=== PATIENT | female | born 1945 | race African-American/Black ===

== ENCOUNTER 2016-11-23 15:06 | Inpatient (IN) | payer OTHER ==
[2016-11-23 15:24] VITALS: BMI 26.9
--- NOTE | 2016-11-23 15:28 | PDOC ---
History of Present Illness - General History Source: Patient, Family, Detention Records Exam Limitations: Dementia - History of Present Illness Initial Comments: 11/23/16 15:55 The patient is a 71 year old female, BIBA from [facility] with a significant past medical history of HTN, DM, dementia, hyperlipidemia, and hypercholesterolemia, who presents to the emergency department for free air under the diaphragm that was seen on outpatient xray. The patients family reports the patient having intermittent abdominal pain, for the psat few weeks. The patients son reports the patient feeling her normal baseline this Monday, and reports 2 days later, this Monday, the patient was slumped over and had multiple episodes of vomiting, bringing up brownish liquid with c/os of worsening abdominal pain. The patient arrives to the ER with distended abdomen. The patient while at her NH had a chest x-ray showing free air under diaphragm and lobe atelectasis. The patient also has had blood work done on showing WBC of 20 and a absolute neutrophil count of 18. Son denies recent fevers, chills, headache or dizziness. Son denies recent nausea, vomit, diarrhea or constipation. Patient is DNR/DNI. History limited and rovided via tx records and from [facility] due to her dementia. Allergies: NKA Past surgical history: Cholecystectomy Social history: Nonsmoker. Denies EtOH use and recreational drug use. <Antony Kurtz - Last Filed: 11/23/16 15:55> <Yordy Morales - Last Filed: 11/23/16 17:53> - General History Source: Patient <Asaf Cao - Last Filed: 11/23/16 18:15> - General Chief Complaint: Pain, Acute Stated Complaint: ABNORMAL LABS Time Seen by Provider: 11/23/16 15:28 Past History <Antony Kurtz - Last Filed: 11/23/16 15:55> <Yordy Morales - Last Filed: 11/23/16 17:53> - Past Medical History Anemia: No Asthma: No Cancer: No Cardiac Disorders: No CVA: No COPD: No CHF: No Dementia: Yes Diabetes: No Dialysis: No GI Disorders: Yes (acid reflux) Disorders: No HTN: Yes Hypercholesterolemia: Yes HIV: No Kidney Stones: No Liver Disease: No Suicide Attempt (Hx): No Seizures: No Thyroid Disease: No - Surgical History Abdominal Surgery: No Appendectomy: No Cardiac Surgery: No Cholecystectomy: Yes Lung Surgery: No Neurologic Surgery: No Orthopedic Surgery: No - Immunization History Td Vaccination: Yes TDAP Vaccination: Yes Immunization Up to Date: Yes (01/05) - Psycho/Social/Smoking Cessation Hx Anxiety: No Suicidal Ideation: No Smoking Status: No Smoking History: Never smoked Years of Tobacco Use: 0 Have you smoked in the past 12 months: No Number of Cigarettes Smoked Daily: 0 Cigars Per Day: 0 Information on smoking cessation initiated: No Hx Alcohol Use: No Drug/Substance Use Hx: No Substance Use Type: None Hx Substance Use Treatment: No <Asaf Cao - Last Filed: 11/23/16 18:15> - Past Medical History Allergies/Adverse Reactions: Allergies Allergy/AdvReac Type Severity Reaction Status Date / Time No Known Allergies Allergy Verified 12/19/12 14:22 Home Medications: Ambulatory Orders Amlodipine Besylate [Norvasc] 5 mg PO DAILY 01/12/12 Famotidine [Pepcid] 20 mg PO BID #20 tablet 04/07/12 Pantoprazole Sodium [Protonix] 40 mg PO ONCE #20 tablet.ec 12/19/12 Amlodipine Besylate [Norvasc -] 5 mg PO DAILY #0 tablet 12/27/12 Aripiprazole [Abilify -] 5 mg PO DAILY #0 tablet 12/27/12 Citalopram Hydrobromide [Celexa -] 20 mg PO DAILY #0 tablet 12/27/12 Docusate Sodium [Colace -] 100 mg PO BID #20 capsule 12/27/12 Donepezil HCl [Aricept -] 5 mg PO DAILY #0 tablet 12/27/12 Mag Hydrox/Al Hydrox/Simeth [Mylanta Oral Suspension -] 30 ml PO Q6H PRN #0 cup 12/27/12 Metoclopramide HCl [Reglan -] 5 mg PO TID #0 tablet 12/27/12 Pantoprazole Sodium [Protonix -] 40 mg PO DAILY #0 tablet.ec 12/27/12 Abd/GI Specific PMHX - Complaint Specific PMHX Colitis: No Diverticulitis: No Gall Bladder Disease: Yes GERD: Yes Hepatitis: No Irritable Bowel Synd (IBS): No Pancreatitis: No GI Ulcer Disease: No <Asaf Cao - Last Filed: 11/23/16 18:15> Review of Systems - Review of Systems Able to Perform ROS?: No (Dementia ) <Antony Kurtz - Last Filed: 11/23/16 15:55> *Physical Exam - Vital Signs Last Vital Signs Temp Pulse Resp BP Pulse Ox 99.7 F H 127 H 20 138/79 96 11/23/16 15:21 11/23/16 15:21 11/23/16 15:21 11/23/16 15:21 11/23/16 15:21 - Physical Exam Comments: 11/23/16 15:55 GENERAL: The patient is awake, but with her eyes closed. Nontoxic - in no acute distress. HEAD: Normocephalic, atraumatic. EYES: extraocular movements intact, sclera anicteric, conjunctiva clear. ENT: Normal voice, Moist mucous membranes. NECK: Normal range of motion, supple LUNGS: Breath sounds equal, clear to auscultation bilaterally. No wheezes, no rhonchi, no rales. HEART: tachycardic ABDOMEN: slightly distended, diffusely tender to palpation EXTREMITIES: Normal range of motion, no edema. NEUROLOGICAL: No facial assymetry, limited exam due to dementia SKIN: Warm, Dry, normal turgor, <Antoyn Kurtz - Last Filed: 11/23/16 15:55> - Vital Signs Last Vital Signs Temp Pulse Resp BP Pulse Ox 100.7 F H 127 H 24 130/83 97 11/23/16 17:27 11/23/16 17:27 11/23/16 17:27 11/23/16 17:27 11/23/16 17:27 <Yordy Morales - Last Filed: 11/23/16 17:53> - Vital Signs Last Vital Signs Temp Pulse Resp BP Pulse Ox 99.7 F H 127 H 20 138/79 96 11/23/16 15:21 11/23/16 15:21 11/23/16 15:21 11/23/16 15:21 11/23/16 15:21 <Asaf Cao - Last Filed: 11/23/16 18:15> Heart Score/ECG Review - ECG Impressions Comment:: 11/23/16 16:06 Twelve-lead EKG was performed and reviewed by me. There is normal sinus rhythm with rate of [address] changes suggtestive of acute ischemia <Asaf Cao - Last Filed: 11/23/16 18:15> ED Treatment Course - LABORATORY CBC & Chemistry Diagram: 11/23/16 16:10 11/23/16 16:10 - ADDITIONAL ORDERS Additional order review: Laboratory Results 11/23/16 11/23/16 16:10 16:10 INR 1.26 H Lactic Acid 2.8 H* 11/23/16 16:10 RBC 5.32 H MCV 69.7 L MCHC 31.7 L RDW 15.2 MPV 7.9 Neutrophils % 81.3 D Lymphocytes % 11.1 D Monocytes % 6.7 Eosinophils % 0.4 Basophils % 0.5 - Medications Given in the ED: ED Medications Discontinued Medications Generic Name Dose Route Start Last Admin Trade Name Freq PRN Reason Stop Dose Admin Sodium Chloride 1,000 mls @ 1,000 mls/hr 11/23/16 15:30 11/23/16 16:31 Normal Saline - IV 11/23/16 16:29 1,000 mls/hr .Q1H ONE Administration <Yordy Morales - Last Filed: 11/23/16 17:53> - LABORATORY CBC & Chemistry Diagram: 11/23/16 16:10 11/23/16 16:10 <Asaf Cao - Last Filed: 11/23/16 18:15> Medical Decision Making - Medical Decision Making 11/23/16 16:07 pt with free air under the diaphragm on our cxr will consult surger pending surgery call back 11/23/16 16:15 case rafy fatima will come see pt 11/23/16 17:[address] fatima will bring to OR will admit to hospitalist service will give pt abx CRITICAL CARE DOCUMENTATION: I spent ~35 minutes of Critical Care time, excluding separately billable procedures, involving high complexity decision making to assess, manipulate and support vital system function(s) to treat single or multiple vital organ system failure and/or to prevent further life threatening deterioration of the patient' s condition. 11/23/16 18:08 case rafy Smiley - hospitalist service agree with admission to ICU case rafy lawson agree with ICU admission Case discussed in detail with admitting physician including history, physical exam and ancillary studies. Admitting physician has assumed care for the patient, will follow all pending diagnostics and will complete the evaluation and treatment. <Asaf Cao - Last Filed: 11/23/16 18:15> *DC/Admit/Observation/Transfer - Attestations Scribe Attestion: 11/23/16 15:52 Documentation prepared by Antony Kurtz, acting as medical engineer for Asaf Cao MD. <Antony Kurtz - Last Filed: 11/23/16 15:55> - Discharge Dispostion Admit: Yes <Yordy Morales - Last Filed: 11/23/16 17:53> - Discharge Dispostion Admit: Yes <Asaf Cao - Last Filed: 11/23/16 18:15> Diagnosis at time of Disposition: Intestinal perforation - Discharge Dispostion Condition at time of disposition: Critical - Referrals Referrals: Fabio Currie [Primary Care Provider] -
[2016-11-23] MEDS ORDERED: SODIUM CHLORIDE 1,000 ML IV ONE (15:30)
[2016-11-23 16:28] LABS: BASOPHIL 0.5 % (0-2.0); EOSINOPHIL 0.4 % (0-4.5); MCH 22.1 pg (25.7-33.7); MCHC 31.7 g/dl (32.0-36.0); MEAN CELL VOLUME 69.7 fl (80-96); MEAN PLT VOLUME 7.9 fl (7.5-11.1); NEUTROPHILS 81.3 % (42.8-82.8); PLATELET COUNT 349 K/MM3 (134-434); RDW 15.2 % (11.6-15.6); WHITE BLOOD COUNT 14.4 K/mm3 (4.0-10.0)
[2016-11-23 16:41] LABS: INR 1.26 (0.82-1.09); PROTHROMBIN TIME (PATIENT) 13.9 SEC (9.98-11.88)
--- NOTE | 2016-11-23 17:03 | CONSULT ---
- Consultation REQUESTING PROVIDER: Kiley RASCON CONSULT REQUEST: We have been asked to surgically evaluate this patient for ( specify). PCP: HISTORY OF PRESENT ILLNESS: [place] who is a prison resident who was sent to the [facility] ER after ? c/o's ? of abdominal pain over the last 2-3 days; she cannot provide an adequate h/o b/o dementia; a w/u was done in the [place] with dx. imaging which revealed pneumoperitoneum; she was sent here and CXR here confirms pneumoperitoneum. She has a DNR/DNI PMHx: reveiwed ; HTN;hyperlipidemia; dementia PSHx: lap pool Home Medications Medication Instructions Recorded Amlodipine Besylate [Norvasc] 5 mg PO DAILY 01/12/12 Famotidine [Pepcid] 20 mg PO BID #20 tablet 04/07/12 Pantoprazole Sodium [Protonix] 40 mg PO ONCE #20 tablet.ec 12/19/12 Amlodipine Besylate [Norvasc -] 5 mg PO DAILY #0 tablet 12/27/12 Aripiprazole [Abilify -] 5 mg PO DAILY #0 tablet 12/27/12 Citalopram Hydrobromide [Celexa -] 20 mg PO DAILY #0 tablet 12/27/12 Docusate Sodium [Colace -] 100 mg PO BID #20 capsule 12/27/12 Donepezil HCl [Aricept -] 5 mg PO DAILY #0 tablet 12/27/12 Mag Hydrox/Al Hydrox/Simeth 30 ml PO Q6H PRN #0 cup 12/27/12 [Mylanta Oral Suspension -] Metoclopramide HCl [Reglan -] 5 mg PO TID #0 tablet 12/27/12 Pantoprazole Sodium [Protonix -] 40 mg PO DAILY #0 tablet.ec 12/27/12 Allergies Allergy/AdvReac Type Severity Reaction Status Date / Time No Known Allergies Allergy Verified 12/19/12 14:22 REVIEW OF SYSTEMS: reviewed from [place] xfer papers PHYSICAL EXAM: GENERAL: Lethargic, not oriented, in slightdistress. HEAD: Normal with no signs of trauma. ABDOMEN: Soft, dissuse 4 quadrant tenderness, distended and tympanitic, absebt bowel sounds, voluntary guarding, positive rebound, no masses. No organomegaly. No hernias UPPER EXTREMITIES: 2+ pulses, warm, well-perfused. No cyanosis. Cap refill <2 seconds. No peripheral edema. LOWER EXTREMITIES: 2+ pulses, warm, well-perfused. No calf tenderness. No peripheral edema. NEUROLOGICAL:Non verbal, gait not observed. PSYCH: Unooperative. No eye contact. Inappropriate mood and affect. SKIN: Warm, dry, normal turgor, no rashes or lesions noted. Vital Signs Temperature 99.7 F H 11/23/16 15:21 Pulse Rate 127 H 11/23/16 15:21 Respiratory Rate 20 11/23/16 15:21 Blood Pressure 138/79 11/23/16 15:21 O2 Sat by Pulse Oximetry (%) 96 11/23/16 15:21 Lab Results WBC 14.4 K/mm3 (4.0-10.0) H D 11/23/16 16:10 RBC 5.32 M/mm3 (3.60-5.2) H 11/23/16 16:10 Hgb 11.8 GM/dL (10.7-15.3) 11/23/16 16:10 Hct 37.1 % (32.4-45.2) 11/23/16 16:10 MCV 69.7 fl (80-96) L 11/23/16 16:10 MCHC 31.7 g/dl (32.0-36.0) L 11/23/16 16:10 RDW 15.2 % (11.6-15.6) 11/23/16 16:10 Plt Count 349 K/MM3 (134-434) D 11/23/16 16:10 INR 1.26 (0.82-1.09) H 11/23/16 16:10 Dx imaging reviewed IMP: pneumoperitoneum; acute surgical abdomen; perforated DU vs. perforated diverticulitis. PLAN: D/w family at length about surgery; r/b/t/a's; possibley of inability to extubate post op and possibility of prolonged intubation; all possible complications of surgery discussed including but not stroke/MS/wound infection/ PE?DVT and ; they are deciding what they would like to do. Harvinder Suazo MD FACS Visit type - Case Type Case Type: ED Admission - Emergency Emergency Visit: Yes Care time: The patient presented to the Emergency Department on the above date and was hospitalized for further evaluation of their emergent condition. - New patient This patient is new to me today: No - Critical Care Critical Care patient: No
[2016-11-23] MEDS ORDERED: LEVOFLOXACIN 750 MG IVPB 150 ML IVPB ONE ×2 (17:12→17:34)
[2016-11-23] MEDS ORDERED: METRONIDAZOLE 500 MG PREMIXED 100 ML IVPB ONE ×2 (17:12→17:35)
[2016-11-23 18:02] LABS: ALBUMIN 2.6 g/dl (3.4-5.0); ANION GAP 9 (8-16); BILIRUBIN,TOTAL 0.7 mg/dL (0.2-1.0); CO2 28 mmol/L (21-32); CREATININE 0.6 mg/dL (0.55-1.02); GLUCOSE,RANDOM 144 mg/dL (74-106); SGOT/AST 18 U/L (15-37); SGPT/ALT 29 U/L (12-78)
[2016-11-23 18:03] LABS: ALK PHOS 84 U/L (45-117); TOT PROT 6.4 g/dl (6.4-8.2)
--- NOTE | 2016-11-23 18:36 | HP ---
CHIEF COMPLAINT: abdominal pain PCP: Fabio Currie HISTORY OF PRESENT ILLNESS: 71 yo F from [facility] with significant PMHx of HTN, DM, dementia, hyperlipidemia, and hypercholesterolemia, who presents to the ER for free air under the diaphragm that was seen on outpatient xray. Family functioning as historian as she is nonverbal . Patient was in her normal state of health until Monday when family noticed she was complaining of abdominal pain by grimacing and holding her belly . They report that 2 days later, this Monday, the patient was slumped over and had multiple episodes of vomiting, bringing up brownish liquid with c/os of worsening abdominal pain. The patient also has had blood work done on 11/21/16 showing WBC of 20 and a absolute neutrophil count of 18. Son denies recent fevers, chills, headache or dizziness. Patient is DNR/DNI but family would like to her to have surgery and forego palliative care at this time. ER course was notable for: (1)abdominal XRAY shows free air under diaphragm (2)EKG shows NSR rate 122 no maryam (3)WBC 14.4 , Lactic acid 2.8- given Metronidazole and Levaquin x1 Recent Travel: Denies PAST MEDICAL HISTORY: HTN, DM, dementia, hyperlipidemia, and hypercholesterolemia PAST SURGICAL HISTORY: [facility]Y Social History: Smoking:never smoked Alcohol:denies Drugs: denies Family History: Allergies No Known Allergies Allergy (Verified 12/19/12 14:22) HOME MEDICATIONS: Home Medications Medication Instructions Recorded Amlodipine Besylate [Norvasc] 5 mg PO DAILY 01/12/12 Famotidine [Pepcid] 20 mg PO BID #20 tablet 04/07/12 Pantoprazole Sodium [Protonix] 40 mg PO ONCE #20 tablet.ec 12/19/12 Amlodipine Besylate [Norvasc -] 5 mg PO DAILY #0 tablet 12/27/12 Aripiprazole [Abilify -] 5 mg PO DAILY #0 tablet 12/27/12 Citalopram Hydrobromide [Celexa -] 20 mg PO DAILY #0 tablet 12/27/12 Docusate Sodium [Colace -] 100 mg PO BID #20 capsule 12/27/12 Donepezil HCl [Aricept -] 5 mg PO DAILY #0 tablet 12/27/12 Mag Hydrox/Al Hydrox/Simeth 30 ml PO Q6H PRN #0 cup 12/27/12 [Mylanta Oral Suspension -] Metoclopramide HCl [Reglan -] 5 mg PO TID #0 tablet 12/27/12 Pantoprazole Sodium [Protonix -] 40 mg PO DAILY #0 tablet.ec 12/27/12 REVIEW OF SYSTEMS Unable to obtain secondary to patients mental status. PHYSICAL EXAMINATION Vital Signs - 24 hr 11/23/16 11/23/16 11/23/16 15:21 16:00 17:27 Temperature 99.7 F H 100.7 F H Pulse Rate 127 H 122 H Pulse Rate [ 127 H Apical] Respiratory 20 24 Rate Blood Pressure 138/79 Blood Pressure 130/83 [Left] O2 Sat by Pulse 96 98 97 Oximetry (%) GENERAL: Awake, and alert , NAD HEAD: NC/AT EYES: PERRLA, EOMI, sclera anicteric, conjunctiva clear. No lid lag. EARS, NOSE, THROAT: Ears normal, nares patent, oropharynx clear without exudates. Moist mucous membranes. NECK: supple, No jvd LUNGS: CTAB, No wheezes, and no crackles. No accessory muscle use. HEART: Tachycardic, normal S1 and S2 without murmur, rub or gallop. ABDOMEN: Soft, diffuse tenderness, moderate distention,normoactive bowel sounds , voluntary guarding, no rebound, no masses. MUSCULOSKELETAL: Normal range of motion at all joints. No bony deformities or tenderness. No CVA tenderness. UPPER EXTREMITIES: 2+ pulses, warm, well-perfused. No cyanosis. No clubbing. No peripheral edema. LOWER EXTREMITIES: 2+ pulses, warm, well-perfused. No calf tenderness. No peripheral edema. NEUROLOGICAL: gait not observed. Moves all 4 ext. PSYCHIATRIC: non verbal SKIN: Warm, dry, normal turgor, no rashes or lesions noted, normal capillary refill. Laboratory Results - last 24 hr 11/23/16 11/23/16 11/23/16 16:10 16:10 16:10 WBC 14.4 H D RBC 5.32 H Hgb 11.8 Hct 37.1 MCV 69.7 L MCH 22.1 L MCHC 31.7 L RDW 15.2 Plt Count 349 D MPV 7.9 Neutrophils % 81.3 D Lymphocytes % 11.1 D Monocytes % 6.7 Eosinophils % 0.4 Basophils % 0.5 INR 1.26 H Sodium 140 Potassium 3.8 Chloride 103 Carbon Dioxide 28 Anion Gap 9 BUN 12 D Creatinine 0.6 D Creat Clearance w eGFR > 60 Random Glucose 144 H D Lactic Acid Calcium 9.0 Total Bilirubin 0.7 D AST 18 ALT 29 Alkaline Phosphatase 84 Total Protein 6.4 Albumin 2.6 L D 11/23/16 16:10 WBC RBC Hgb Hct MCV MCH MCHC RDW Plt Count MPV Neutrophils % Lymphocytes % Monocytes % Eosinophils % Basophils % INR Sodium Potassium Chloride Carbon Dioxide Anion Gap BUN Creatinine Creat Clearance w eGFR Random Glucose Lactic Acid 2.8 H* Calcium Total Bilirubin AST ALT Alkaline Phosphatase Total Protein Albumin ASSESSMENT/PLAN: 71 yo F from [facility] with significant PMHx of HTN, DM, dementia, and hypercholesterolemia, admitted for intestinal perforation and emergent surgery. Problem List - Problem (1) Intestinal perforation Assessment/Plan: * Free air under diaphragm and evaluated by Dr. Suazo * She will be taken back to OR this evening * Admission to ICU * Given Levaquin and Metronidazole in ED x1 * PPI * Zofran PRN (2) Diabetes type 2, controlled Assessment/Plan: * NPO for now * BGM Q4h * diabetic diet when she can tolerated PO * No home meds. (3) Hyperlipemia Assessment/Plan: * Not on statins. (4) Dementia Assessment/Plan: * meds held for now as patient is NPO * Can restart when medically stable. (5) DVT prophylaxis Assessment/Plan: * SCD's for now * can initiate Heparin subq once HD stable after surgery. Visit type - Emergency Visit Emergency Visit: Yes ED Registration Date: 11/23/16 Care time: The patient presented to the Emergency Department on the above date and was hospitalized for further evaluation of their emergent condition. - New Patient This patient is new to me today: Yes Date on this admission: 11/24/16 - Critical Care Critical Care patient: Yes Total Critical Care Time (in minutes): 35 Critical Care Statement: The care of this patient involved high complexity decision making to prevent further life threatening deterioration of the patient 's condition and/or to evaluate & treat vital organ system(s) failure or risk of failure.
[2016-11-23 18:41] LABS: PLATELET ESTIMATE ADEQUATE (NORMAL)
[2016-11-23 18:42] LABS: ANISOCYTOSIS 1+; HYPOCHROMIA 1+; MICROCYTOSIS 1+; OVALOCYTE 2+; POIKILOCYTOSIS 1+; POLYCHROMASIA 1+
[2016-11-23] MEDS ORDERED: ETOMIDATE 20 MG/10 ML AMPUL IVPUSH ONE (21:36)
[2016-11-23] MEDS ORDERED: ROCURONIUM BROMIDE 50 MG/5 ML VIAL ONE ×2 (21:37→23:20)
[2016-11-23] MEDS ORDERED: CHLORHEXIDINE GLUCONATE 4% CLEANSER FOR DECOLONIZATION TP SCH (22:00)
[2016-11-23] MEDS ORDERED: MUPIROCIN 2% TOPICAL OINTMENT FOR DECOLONIZATION NS SCH (22:00)
[2016-11-24] MEDS ORDERED: ALBUMIN HUMAN 5% 500 ML IV SOLUTION IVPB ONE
[2016-11-24] MEDS ORDERED: HYDROmorphone HCL CARPU-JECT 1 MG/1 ML DISP.SYRIN IVPUSH PRN (00:26)
[2016-11-24] MEDS ORDERED: ALBUMIN HUMAN 5% 250 ML IV SOLUTION IVPB ONE ×2 (00:36→01:10)
[2016-11-24] MEDS ORDERED: ONDANSETRON 4 MG/2 ML VIAL IVPB PRN (00:37)
[2016-11-24] MEDS ORDERED: LACTATED RINGERS SOLUTION 1,000 ML IV SCH (00:45)
[2016-11-24] MEDS ORDERED: ACETAMINOPHEN 1000 MG/100 ML VIAL (NON FORMULARY) IVPB PRN (00:46)
--- NOTE | 2016-11-24 00:51 | OP ---
Operative Note - Note: Operative Date: 11/24/16 Pre-Operative Diagnosis: acute abdomen, pneumoperitoneum Operation: exploratory lapartomy/hartmans procedure Findings: perforated sigmoid colon Surgeon: Harvinder Suazo Senior Management Consultant: Charlotte Roger Anesthesiologist/CHILD NURSE: Pasquale Alexander Anesthesia: General Specimens Removed: sigmoid colon Estimated Blood Loss (mls): 200 Drains, Volume Out (mls): 100 (childress) Fluid Volume Replaced (mls): 3,300 (2500-crystaloid, 500 albumin) Operative Report Dictated: Yes
[2016-11-24] MEDS ORDERED: PROPOFOL 100 ML IVPB SCH (01:15)
[2016-11-24] MEDS ORDERED: FENTANYL INJECTION 500 MCG in DEXTROSE 5%-WATER - 90 ML IVPB SCH (01:15)
--- NOTE | 2016-11-24 02:10 | PN ---
Teaching Attending Note Name of Resident: Cr Smiley ATTENDING PHYSICIAN STATEMENT I saw and evaluated the patient. I reviewed the resident's note and discussed the case with the resident. I agree with the resident's findings and plan as documented. SUBJECTIVE:71-year-old female referred from [facility] for concern of abdominal pain, multiple episodes of vomiting brownish liquid for 2 days. OBJECTIVE: Gen.: Well-nourished . awake and in mild distress on palpation of abdomen. HEENT: Normocephalic, atraumatic, pupils equal and reactive to light and accommodation, EOMI, no exophthalmos, normal nasal and oral pharyngeal mucosa.edentulous. Neck:Trachea midline, no thyroid nodules appreciated or thyromegaly. Cardiovascular: Regular rate, and rhythm, S1, S2, no murmur, no gallop, no rub. Respiration: Equal bilateral breath sounds ,no wheezing, no rhonchi, and no rales. Abdomen: Soft, RLQ and RUQ tender, bowel sounds present, no hepatosplenomegaly. Musculoskeletal: No peripheral edema, equal bilateral pulses, normal ROM. Neuro:nonverbal. Skin: warm to touch, no rashs, no lesions CBCD WBC 14.4 K/mm3 (4.0-10.0) H D 11/23/16 16:10 RBC 5.32 M/mm3 (3.60-5.2) H 11/23/16 16:10 Hgb 11.8 GM/dL (10.7-15.3) 11/23/16 16:10 Hct 37.1 % (32.4-45.2) 11/23/16 16:10 MCV 69.7 fl (80-96) L 11/23/16 16:10 MCHC 31.7 g/dl (32.0-36.0) L 11/23/16 16:10 RDW 15.2 % (11.6-15.6) 11/23/16 16:10 Plt Count 349 K/MM3 (134-434) D 11/23/16 16:10 MPV 7.9 fl (7.5-11.1) 11/23/16 16:10 CMP Sodium 140 mmol/L (136-145) 11/23/16 16:10 Potassium 3.8 mmol/L (3.5-5.1) 11/23/16 16:10 Chloride 103 mmol/L (98-107) 11/23/16 16:10 Carbon Dioxide 28 mmol/L (21-32) 11/23/16 16:10 Anion Gap 9 (8-16) 11/23/16 16:10 BUN 12 mg/dL (7-18) D 11/23/16 16:10 Creatinine 0.6 mg/dL (0.55-1.02) D 11/23/16 16:10 Creat Clearance w eGFR > 60 (>60) 11/23/16 16:10 Random Glucose 144 mg/dL (74-106) H D 11/23/16 16:10 Calcium 9.0 mg/dL (8.5-10.1) 11/23/16 16:10 Total Bilirubin 0.7 mg/dL (0.2-1.0) D 11/23/16 16:10 AST 18 U/L (15-37) 11/23/16 16:10 ALT 29 U/L (12-78) 11/23/16 16:10 Alkaline Phosphatase 84 U/L (45-117) 11/23/16 16:10 Total Protein 6.4 g/dl (6.4-8.2) 11/23/16 16:10 Albumin 2.6 g/dl (3.4-5.0) L D 11/23/16 16:10 ASSESSMENT AND PLAN: abdominal pain with x-ray showing pneumoperitoneum, admit for emergent surgery for bowel perforation .Nothing by mouth, IV fluids, PPI daily, Zofran when necessary,pain medication when necessary, follow surgical consult and monitor patient. DNR/DNI, with DNI revoked for surgical intervention. DVT prophylaxis once hemostasis achieved post surgery. Advanced directives discussed. Problem List - Problems (1) Dementia Code(s): F03.90 - UNSPECIFIED DEMENTIA WITHOUT BEHAVIORAL DISTURBANCE Qualifiers: Dementia type: unspecified type Dementia behavioral disturbance: without behavioral disturbance Qualified Code(s): F03.90 - Unspecified dementia without behavioral disturbance (2) Diabetes type 2, controlled Code(s): E11.9 - TYPE 2 DIABETES MELLITUS WITHOUT COMPLICATIONS Qualifiers: Diabetes mellitus complication status: with unspecified complications Diabetes mellitus skilled nursing insulin use: unspecified skilled nursing insulin use status Qualified Code(s): E11.8 - Type 2 diabetes mellitus with unspecified complications; Z79.4 - director long term care (current) use of insulin (3) Hyperlipemia Code(s): E78.5 - HYPERLIPIDEMIA, UNSPECIFIED Qualifiers: Hyperlipidemia type: unspecified Qualified Code(s): E78.5 - Hyperlipidemia, unspecified (4) Intestinal perforation Code(s): K63.1 - PERFORATION OF INTESTINE (NONTRAUMATIC) Critical Care Total Critical Care Time (in minutes): 65 Critical Care Statement: The care of this patient involved high complexity decision making to prevent further life threatening deterioration of the patient 's condition and/or to evaluate & treat vital organ system(s) failure or risk of failure.
[2016-11-24] MEDS ORDERED: SODIUM CHLORIDE 500 ML IV STA (02:11)
[2016-11-24 02:31] LABS: BASOPHIL 0.3 % (0-2.0); EOSINOPHIL 0.6 % (0-4.5); MCH 22.2 pg (25.7-33.7); MCHC 31.6 g/dl (32.0-36.0); MEAN CELL VOLUME 70.3 fl (80-96); MEAN PLT VOLUME 8.4 fl (7.5-11.1); NEUTROPHILS 75.3 % (42.8-82.8); PLATELET COUNT 110 K/MM3 (134-434); RDW 15.2 % (11.6-15.6); WHITE BLOOD COUNT 8.2 K/mm3 (4.0-10.0)
[2016-11-24 03:13] LABS: ANION GAP 10 (8-16); CALCIUM 7.1 mg/dL (8.5-10.1); CO2 22 mmol/L (21-32); CREATININE 0.6 mg/dL (0.55-1.02); GLUCOSE,RANDOM 188 mg/dL (74-106)
[2016-11-24 03:39] LABS: ALLENS TEST POSITIVE; ART PUNCT SITE RIGHT RADIAL; ARTERIAL BLD GAS O2 SATURATION 98.5 % (90-98.9); ARTERIAL BLOOD GAS BASE EXCESS -1.4 meq/l (-2-2); ARTERIAL BLOOD GAS HCO3 19.4 meq/L (22-26); LPM/O2% 80%; PT. ON O2? YES
[2016-11-24 03:40] LABS: MECH. VENT. YES; TYPE OF O2 MECH VENT; VENT RATE 10; VT/PRESS 500
[2016-11-24 03:41] LABS: ARTERIAL BLOOD GAS pH 7.55 (7.35-7.45)
[2016-11-24] MEDS: METRONIDAZOLE 500 MG PREMIXED 100 ML IVPB SCH ×3 (03:44→17:03)
[2016-11-24 05:21] LABS: BASOPHIL 0.2 % (0-2.0); EOSINOPHIL 0.1 % (0-4.5); MCH 22.1 pg (25.7-33.7); MEAN CELL VOLUME 69.3 fl (80-96); MEAN PLT VOLUME 8.1 fl (7.5-11.1); NEUTROPHILS 83.9 % (42.8-82.8); PLATELET COUNT 278 K/MM3 (134-434); RDW 15.1 % (11.6-15.6); WHITE BLOOD COUNT 12.4 K/mm3 (4.0-10.0)
--- NOTE | 2016-11-24 05:30 | CONSULT ---
Consult Consult Specialty:: Pulmonary Critical Care Reason for Consultation:: Post exploratory laparotomy - History of Present Illness Chief Complaint: Abdominal pain History of Present Illness: Pt is a 71 yo female who is a [facility] resident, with a h/o HTN, DM, dementia (non-verbal at baseline), HL who was sent to ED when she was noted to have free air on abdominal x-ray. Was taken to emergent surgery and was found to have perforated sigmoid colon. Now s/p resection and colostomy, transferred to ICU for post-op care. Pt has been feeling abdominal pain for the past two days (grimacing and holding her belly), xray done at [facility] and showed pneumoperitoneum. She was referred to ER where surgery was consulted given c/f bowel perforation. Initial labs notable for WBC 14.4, lactate 2.8. Was given fluids and dosed flagyl and levaquin. She was then taken to emergent surgery where she was found to have perforated sigmoid colon. Underwent resection and colostomy. 200cc blood loss reported during procedure. Received another dose of levaquin/flagyl. Was then transferred to ICU for post-op management. Arrived to ICU hemodynamically stable , intubated. Active Medications Acetaminophen (Ofirmev Injection -) 1,000 mg IVPB Q6H PRN PRN Reason: FEVER OR PAIN Stop: 11/24/16 18:47 Heparin Sodium (Porcine) (Heparin -) 5,000 unit SQ BID CELENA Hydromorphone HCl (Dilaudid Injection -) 1 mg IVPUSH Q4H PRN PRN Reason: PAIN Pantoprazole Sodium (Protonix 40mg Ivpb (Pre-Docked)) 100 mls @ 200 mls/hr IVPB DAILY CELENA Metronidazole (Flagyl 500mg Premixed Ivpb -) 100 mls @ 100 mls/hr IVPB Q8H-IV CELENA Last Admin: 11/24/16 03:44 Dose: 100 mls/hr Levofloxacin (Levaquin 500 Mg Premixed Ivpb -) 100 mls @ 100 mls/hr IVPB ONCE ONE Stop: 11/24/16 18:59 Lactated Ringer's (Lactated Ringers Solution) 1,000 mls @ 150 mls/hr IV ASDIR CELENA Stop: 11/24/16 23:00 Last Admin: 11/24/16 00:45 Dose: 150 mls/hr Fentanyl 500 mcg/ Dextrose 100 mls @ 20 mls/hr IVPB TITR CELENA PRN Reason: 100 MCG/HR Stop: 11/25/16 01:14 Last Admin: 11/24/16 01:15 Dose: 20 mls/hr Propofol (Diprivan -) 100 mls @ 2.273 mls/hr IVPB TITR CELENA; 5 MCG/KG/MIN PRN Reason: Protocol Last Admin: 11/24/16 00:50 Dose: 2.273 mls/hr Mupirocin (Bactroban Ointment (For Decolonization) -) 1 applic NS BID CELENA Stop: 11/29/16 09:59 Ondansetron HCl (Zofran Injection) 4 mg IVPB Q6H PRN PRN Reason: NAUSEA - 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 Cardio/Vascular: Yes: HTN, Hyperlipdemia ...: No - Alcohol/Substance Use Hx Alcohol Use: No - Smoking History Smoking history: Never smoked Have you smoked in the past 12 months: No Aproximately how many cigarettes per day: 0 Home Medications - Allergies Allergies/Adverse Reactions: Allergies Allergy/AdvReac Type Severity Reaction Status Date / Time No Known Allergies Allergy Verified 12/19/12 14:22 - Home Medications Home Medications: Ambulatory Orders Amlodipine Besylate [Norvasc] 5 mg PO DAILY 01/12/12 Famotidine [Pepcid] 20 mg PO BID #20 tablet 04/07/12 Pantoprazole Sodium [Protonix] 40 mg PO ONCE #20 tablet.ec 12/19/12 Amlodipine Besylate [Norvasc -] 5 mg PO DAILY #0 tablet 12/27/12 Aripiprazole [Abilify -] 5 mg PO DAILY #0 tablet 12/27/12 Citalopram Hydrobromide [Celexa -] 20 mg PO DAILY #0 tablet 12/27/12 Docusate Sodium [Colace -] 100 mg PO BID #20 capsule 12/27/12 Donepezil HCl [Aricept -] 5 mg PO DAILY #0 tablet 12/27/12 Mag Hydrox/Al Hydrox/Simeth [Mylanta Oral Suspension -] 30 ml PO Q6H PRN #0 cup 12/27/12 Metoclopramide HCl [Reglan -] 5 mg PO TID #0 tablet 12/27/12 Pantoprazole Sodium [Protonix -] 40 mg PO DAILY #0 tablet.ec 12/27/12 Family Disease History - Family Disease History Family History: Unable to Obtain (intubated) Review of Systems Unable to obtain ROS, reason: intubated Physical Exam Vital Signs: Vital Signs Temperature 98.3 F 11/24/16 04:00 Pulse Rate 133 H 11/24/16 04:00 Respiratory Rate 20 11/24/16 04:00 Blood Pressure 110/67 11/24/16 04:00 O2 Sat by Pulse Oximetry (%) 99 11/24/16 02:51 Eyes: Yes: WNL HENT: Yes: WNL Neck: Yes: WNL Cardiovascular: Yes: Tachycardia, S1, S2 Respiratory: Yes: CTA Bilaterally Gastrointestinal: Yes: Soft, Other (abdominal surgical incision with dressing c/ d/i, RIMMA drain with serosanguinous drainage, +colostomy) Extremities: Yes: WNL Edema: No Labs: CBCD WBC 8.2 K/mm3 (4.0-10.0) D 11/24/16 02:20 RBC 4.50 M/mm3 (3.60-5.2) 11/24/16 02:20 Hgb 10.0 GM/dL (10.7-15.3) L D 11/24/16 02:20 Hct 31.6 % (32.4-45.2) L 11/24/16 02:20 MCV 70.3 fl (80-96) L 11/24/16 02:20 MCHC 31.6 g/dl (32.0-36.0) L 11/24/16 02:20 RDW 15.2 % (11.6-15.6) 11/24/16 02:20 Plt Count 110 K/MM3 (134-434) L D 11/24/16 02:20 MPV 8.4 fl (7.5-11.1) 11/24/16 02:20 CMP Sodium 142 mmol/L (136-145) 11/24/16 02:20 Potassium 3.5 mmol/L (3.5-5.1) 11/24/16 02:20 Chloride 110 mmol/L (98-107) H 11/24/16 02:20 Carbon Dioxide 22 mmol/L (21-32) D 11/24/16 02:20 Anion Gap 10 (8-16) 11/24/16 02:20 BUN 12 mg/dL (7-18) 11/24/16 02:20 Creatinine 0.6 mg/dL (0.55-1.02) 11/24/16 02:20 Creat Clearance w eGFR > 60 (>60) 11/23/16 16:10 Calcium 7.1 mg/dL (8.5-10.1) L D 11/24/16 02:20 Total Bilirubin 0.7 mg/dL (0.2-1.0) D 11/23/16 16:10 AST 18 U/L (15-37) 11/23/16 16:10 ALT 29 U/L (12-78) 11/23/16 16:10 Alkaline Phosphatase 84 U/L (45-117) 11/23/16 16:10 Total Protein 6.4 g/dl (6.4-8.2) 11/23/16 16:10 Albumin 2.6 g/dl (3.4-5.0) L D 11/23/16 16:10 Imaging - Results X-ray: Report Reviewed Problem List - Problems (1) Dementia Code(s): F03.90 - UNSPECIFIED DEMENTIA WITHOUT BEHAVIORAL DISTURBANCE Qualifiers: Dementia type: unspecified type Dementia behavioral disturbance: without behavioral disturbance Qualified Code(s): F03.90 - Unspecified dementia without behavioral disturbance (2) Diabetes type 2, controlled Code(s): E11.9 - TYPE 2 DIABETES MELLITUS WITHOUT COMPLICATIONS Qualifiers: Diabetes mellitus complication status: with unspecified complications Diabetes mellitus 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 ambassador insulin use: unspecified sales ambassador insulin use status Qualified Code(s): E11.8 - Type 2 diabetes mellitus with unspecified complications; 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 Was taken to emergent surgery and was found to have perforated sigmoid colon. Now s/p resection and colostomy , transferred to ICU for post-op care. -surgery following -monitor RIMMA drain output -send CBC stat (increased RIMMA drain output) -2 large bore IVs -active type and screen -transfuse for Hgb <7 -cont levaquin/flagyl -f/u cultures -vent (minimal settings, RR dropped given alkalosis on recent ABG) -sedation for vent synchrony -SBT if otherwise stable -pt was DNR/DNI prior to surgery with DNI reversed for the surgery) -no heparin DVT given c/f bleeding Ellie Arias ACNP Critical care time: 35 min
[2016-11-24 05:47] LABS: ALBUMIN 2.2 g/dl (3.4-5.0); ALK PHOS 52 U/L (45-117); ANION GAP 11 (8-16); BILIRUBIN,TOTAL 2.2 mg/dL (0.2-1.0); CALCIUM 7.6 mg/dL (8.5-10.1); CO2 21 mmol/L (21-32); CREATININE 0.7 mg/dL (0.55-1.02); GLUCOSE,RANDOM 198 mg/dL (74-106); MAGNESIUM 1.5 mg/dL (1.8-2.4); PHOSPHOROUS 2.3 mg/dL (2.5-4.9); SGOT/AST 17 U/L (15-37); SGPT/ALT 19 U/L (12-78); TOT PROT 4.3 g/dl (6.4-8.2)
[2016-11-24] MEDS ORDERED: PROPOFOL 100 ML ONE (06:56)
--- NOTE | 2016-11-24 08:01 | PN ---
Physical Exam: SUBJECTIVE: HPI (per prior records, pt sedated): 71 yo from [facility] with pmh of DM, HTN, dementia who presented to ED in setting of progressive abdominal pain/distension , multiple episodes of emesis w/ outpt CXR notable for free air under diaphragm. WBC count of 20 on 11/21 and absolute neutrophil count of 18 at [facility]. Presented to ED w/ abdominal distension, WBC count of 14.4 and lactic acid of 2.8 w/ cxr notable for free air under diaphragm. Pt taken to OR for ex lap, now s/p chandler's procedure for perforated sigmoid colon. Pt is nonverbal due to dementia. Per son, denies fever, chills, GOMEZ, dizziness, diarrhea or constipation. ED course notable for: 1) free air under diaphragm on CXR 2) WBC 14, lactic acid of 2.8. One dose flagyl/levaquin given 3) EKG with NSR in 120s PMH: HTN, dementia, DM, HLD PSH: Now s/p chandler's procedure. Prior cholecystectomy Social Hx: No smoking, alcohol use. Lives at [facility] Allergies: NKDA Patient seen and examined by me this AM - Sedated, intubated. - Tachy to 140s - Ostomy site drainage feculent fluid with trace blood. RIMMA drain <5 cc of serosanguinous fluid. - Peritoneal fluid, Blood cx's pending - Spoke w/ daughter over phone and informed her of pt status/plan. PM: - Extubated in PM. Propofol gtt dc'ed in AM. OBJECTIVE: Intake & Output 11/21/16 11/22/16 11/23/16 11/24/16 23:59 23:59 23:59 23:59 Intake Total 2700 1078.7 Output Total 390 325 Balance 2310 753.7 Weight 75.75 kg 76.3 kg Vital Signs Period Temp Pulse Resp BP Sys/Campbell Pulse Ox Last 24 Hr 98.3 F-99.2 F 95-143 16-23 90-143/50-80 96-100 GENERAL: The patient sedated, intubated HEAD: Normal with no signs of trauma. EYES: Pupils minimally reactive to light. Sclera anicteric, conjunctiva clear. ENT: Ears normal, nares patent, oropharynx clear without exudates, moist mucous membranes. Intubated. NECK: Trachea midline, full range of motion, supple. LUNGS: Mechanical breath sounds equal, clear to auscultation bilaterally, no wheezes, no crackles HEART: Tachcardiac, S1, prominent S2 without murmur, rub or gallop. ABDOMEN: Midline laparotomy incision. Ostomy site in LLQ, drainage feculent liquid w/ trace blood. No other lesions or masses. Bowel sounds hypoactive. EXTREMITIES: BL LE cool to touch. 2+ DP, PT pulses. No LE edema. SCDs. 2 P IVs, one in each hand. Neuro: Sedated. SKIN: Warm, dry, normal turgor, no rashes or lesions noted Laboratory Results - last 24 hr CBC, BMP 11/24/16 05:00 11/24/16 05:00 Laboratory Results - last 24 hr 11/23/16 11/23/16 11/23/16 16:10 16:10 16:10 WBC 14.4 H D RBC 5.32 H Hgb 11.8 Hct 37.1 MCV 69.7 L MCH 22.1 L MCHC 31.7 L RDW 15.2 Plt Count 349 D MPV 7.9 Neutrophils % 81.3 D Lymphocytes % 11.1 D Monocytes % 6.7 Eosinophils % 0.4 Basophils % 0.5 Hypochromia 1+ Platelet Estimate Adequate Platelet Comment Few giant plts Polychromasia 1+ Poikilocytosis 1+ Anisocytosis 1+ Microcytosis 1+ Ovalocytes 2+ Morphology Comment INR Anticoagulation Therapy Puncture Site ABG pH ABG pCO2 at Pt Temp ABG pO2 at Pt Temp ABG HCO3 ABG O2 Sat (Measured) ABG O2 Content ABG Base Excess Chidi Test O2 Delivery Device Oxygen Flow Rate Vent Mode Vent Rate Mechanical Rate PEEP Pressure Support Vent Sodium 140 Potassium 3.8 Chloride 103 Carbon Dioxide 28 Anion Gap 9 BUN 12 D Creatinine 0.6 D Creat Clearance w eGFR > 60 Random Glucose 144 H D Lactic Acid Calcium 9.0 Phosphorus Magnesium Total Bilirubin 0.7 D AST 18 ALT 29 Alkaline Phosphatase 84 Total Protein 6.4 Albumin 2.6 L D Blood Type A POSITIVE Antibody Screen Negative 11/23/16 11/23/16 11/24/16 16:10 16:10 02:20 WBC 8.2 D RBC 4.50 Hgb 10.0 L D Hct 31.6 L MCV 70.3 L MCH 22.2 L MCHC 31.6 L RDW 15.2 Plt Count 110 L D MPV 8.4 Neutrophils % 75.3 Lymphocytes % 17.5 D Monocytes % 6.3 Eosinophils % 0.6 Basophils % 0.3 Hypochromia Platelet Estimate Platelet Comment Polychromasia Poikilocytosis Anisocytosis Microcytosis Ovalocytes Morphology Comment INR 1.26 H Anticoagulation Therapy Puncture Site ABG pH ABG pCO2 at Pt Temp ABG pO2 at Pt Temp ABG HCO3 ABG O2 Sat (Measured) ABG O2 Content ABG Base Excess Chidi Test O2 Delivery Device Oxygen Flow Rate Vent Mode Vent Rate Mechanical Rate PEEP Pressure Support Vent Sodium Potassium Chloride Carbon Dioxide Anion Gap BUN Creatinine Creat Clearance w eGFR Random Glucose Lactic Acid 2.8 H* Calcium Phosphorus Magnesium Total Bilirubin AST ALT Alkaline Phosphatase Total Protein Albumin Blood Type Antibody Screen 11/24/16 11/24/16 11/24/16 02:20 03:30 05:00 WBC RBC Hgb Hct MCV MCH MCHC RDW Plt Count MPV Neutrophils % Lymphocytes % Monocytes % Eosinophils % Basophils % Hypochromia Platelet Estimate Platelet Comment Polychromasia Poikilocytosis Anisocytosis Microcytosis Ovalocytes Morphology Comment INR Anticoagulation Therapy Y Puncture Site Right radial ABG pH 7.55 H ABG pCO2 at Pt Temp 22.1 L ABG pO2 at Pt Temp 287.0 H* ABG HCO3 19.4 L ABG O2 Sat (Measured) 98.5 ABG O2 Content 15.9 ABG Base Excess -1.4 Chidi Test Positive O2 Delivery Device Mech vent Oxygen Flow Rate 80% Vent Mode A/c Vent Rate 10 Mechanical Rate Yes PEEP 5.0 Pressure Support Vent 500 Sodium 142 141 Potassium 3.5 3.5 Chloride 110 H 109 H Carbon Dioxide 22 D 21 Anion Gap 10 11 BUN 12 12 Creatinine 0.6 0.7 Creat Clearance w eGFR > 60 Random Glucose 188 H D 198 H Lactic Acid Calcium 7.1 L D 7.6 L Phosphorus 2.3 L Magnesium 1.5 L D Total Bilirubin 2.2 H D AST 17 ALT 19 D Alkaline Phosphatase 52 D Total Protein 4.3 L D Albumin 2.2 L Blood Type Antibody Screen 11/24/16 05:00 WBC 12.4 H D RBC 5.17 Hgb 11.5 D Hct 35.9 MCV 69.3 L MCH 22.1 L MCHC 32.0 RDW 15.1 Plt Count 278 D MPV 8.1 Neutrophils % 83.9 H Lymphocytes % 9.4 D Monocytes % 6.4 Eosinophils % 0.1 D Basophils % 0.2 Hypochromia Platelet Estimate Platelet Comment Polychromasia Poikilocytosis Anisocytosis Microcytosis Ovalocytes Morphology Comment INR Anticoagulation Therapy Puncture Site ABG pH ABG pCO2 at Pt Temp ABG pO2 at Pt Temp ABG HCO3 ABG O2 Sat (Measured) ABG O2 Content ABG Base Excess Chidi Test O2 Delivery Device Oxygen Flow Rate Vent Mode Vent Rate Mechanical Rate PEEP Pressure Support Vent Sodium Potassium Chloride Carbon Dioxide Anion Gap BUN Creatinine Creat Clearance w eGFR Random Glucose Lactic Acid Calcium Phosphorus Magnesium Total Bilirubin AST ALT Alkaline Phosphatase Total Protein Albumin Blood Type Antibody Screen Active Medications Generic Name Dose Route Start Last Admin Trade Name Freq PRN Reason Stop Dose Admin Acetaminophen 1,000 mg 11/24/16 00:46 Ofirmev Injection - IVPB 11/24/16 18:47 Q6H PRN FEVER OR PAIN Heparin Sodium (Porcine) 5,000 unit 11/24/16 10:00 Heparin - SQ BID CELENA Hydromorphone HCl 1 mg 11/24/16 00:26 Dilaudid Injection - IVPUSH Q4H PRN PAIN Pantoprazole Sodium 100 mls @ 200 mls/hr 11/24/16 10:00 Protonix 40mg Ivpb (Pre-Docked) IVPB DAILY CELENA Metronidazole 100 mls @ 100 mls/hr 11/24/16 02:00 11/24/16 03:44 Flagyl 500mg Premixed Ivpb - IVPB 100 mls/hr Q8H-IV CELENA Administration Levofloxacin 100 mls @ 100 mls/hr 11/24/16 18:00 Levaquin 500 Mg Premixed Ivpb - IVPB 11/24/16 18:59 ONCE ONE Lactated Ringer's 1,000 mls @ 150 mls/hr 11/24/16 00:45 11/24/16 00:45 Lactated Ringers Solution IV 11/24/16 23:00 150 mls/hr ASDIR CELENA Administration Fentanyl 500 mcg/ Dextrose 100 mls @ 20 mls/hr 11/24/16 01:15 11/24/16 01:15 IVPB 11/25/16 01:14 20 mls/hr TITR CELENA Administration 100 MCG/HR Propofol 100 mls @ 2.273 mls/hr 11/24/16 01:15 11/24/16 00:50 Diprivan - IVPB 2.273 mls/hr TITR CELENA Administration Protocol 5 MCG/KG/MIN Mupirocin 1 applic 11/24/16 10:00 Bactroban Ointment (For Decolonization) - NS 11/29/16 09:59 BID CELENA Ondansetron HCl 4 mg 11/24/16 00:37 Zofran Injection IVPB Q6H PRN NAUSEA Micro: Peritoneal, blood cultures pending CXR, Ab XR (11/23) - Notable for free air under diaphragm. CXR (11/24) - ET tube well positioned. No pneumothorax or pleural effusions. Possible trace atelectasis at LLL, retrocardiac. ASSESSMENT/PLAN: 71 yo woman w/ pmh of HTN, DM, dementia (nonverbal) transfered to ICU for post- op management following chandler's procedure for perforated sigmoid colon. Pt stable post-op with downtrending wbc count (12.4 this AM), afebrile. Pt remains persistently tachycardic on 150ml/hr IVF. Patient extubated this PM. Day 1 Abx course of Zosyn/flagyl per ID recs, levaquin d/c'ed, awaiting culture results. ID following. Monitor sinus tachycardia and respiratory status post-extubation. #Neuro Fentanyl gtt for pain control Dilaudid 1mg IV PRN Monitor MS Home psych meds held #Cardiac Sinus tachycardia post-op to 130s. Bolused 500 LR in AM. IVF LR 150cc/hr. Consider additional 1L bolus in evening if persistently tachycardic. Consider IVC U/S to evaluate fluid status If hemodynamically unstable, vagal maneuvers, 6mg adenosine IV, EKG, consult cardiology Albumin given overnight. Monitor vitals. If MAP <65, bolus 1L LR Home HTN meds held #Pulm O2 support on venti mask 8L 40%. Titrate to >94% Extubated this PM. Monitor respiratory status #ID Day 1 Zosyn/flagyl per ID recs Levaquin d/c'ed peritoneal fluid, blood cx's pending Trend WBC, fever curve Daily dressing changes #Heme Trend H/H If Hgb <7, transfuse two units pRBCs #Renal Hypomag, Hypophos. Repleted in AM Monitor electrolytes Daily BMPs #Endo - Monitor blood glucose q4h #GI NPO Zofran 4mg IV q6h prn for nausea S&S eval in AM qshift Ostomy site checks for signs of infection/drainage/bleeding Monitor for return of bowel function via ostomy output #ppx Protonix 40mg IV Heparin subQ #FEN Fluids: LR 150ml/hr Electrolytes: Daily BMPs, monitor lytes Nutrition: NPO w/ sedation/demetia. S&S eval in AM Disposition: Will require ICU management post-op Carter Thomas, PGY1 Plan discussed with attending, Dr. Posada Visit type - Emergency Visit Emergency Visit: No - New Patient This patient is new to me today: Yes Date on this admission: 11/24/16 - Critical Care Critical Care patient: Yes Total Critical Care Time (in minutes): 45 Critical Care Statement: The care of this patient involved high complexity decision making to prevent further life threatening deterioration of the patient 's condition and/or to evaluate & treat vital organ system(s) failure or risk of failure.
--- NOTE | 2016-11-24 08:24 | HP ---
CHIEF COMPLAINT: abdominal pain PCP: Fabio Currie HISTORY OF PRESENT ILLNESS: 71 yo F from [facility] with significant PMHx of HTN, DM, dementia, hyperlipidemia, and hypercholesterolemia, who presents to the ER for free air under the diaphragm that was seen on outpatient xray. Family functioning as historian as she is nonverbal . Patient was in her normal state of health until Monday when family noticed she was complaining of abdominal pain by grimacing and holding her belly . They report that 2 days later, this Monday, the patient was slumped over and had multiple episodes of vomiting, bringing up brownish liquid with c/os of worsening abdominal pain. The patient arrives to the ER with distended abdomen. The patient while at her OK had a chest x-ray showing free air under diaphragm and lobe atelectasis. The patient also has had blood work done on 11/21/16 showing WBC of 20 and a absolute neutrophil count of 18. Son denies recent fevers, chills, headache or dizziness. Son denies recent nausea, vomit, diarrhea or constipation. Patient is DNR/DNI. History limited and rovided via [place] and from [facility] due to her dementia. ER course was notable for: (1)abdominal XRAY shows free air under diaphragm (2)EKG shows NSR rate 122 no maryam (3)WBC 14.4 , Lactic acid 2.8- given Metronidazole and Levaquin x1 Recent Travel: Denies PAST MEDICAL HISTORY: HTN, DM, dementia, hyperlipidemia, and hypercholesterolemia PAST SURGICAL HISTORY: Social History: Smoking: Alcohol: Drugs: Family History: Allergies No Known Allergies Allergy (Verified 12/19/12 14:22) HOME MEDICATIONS: Home Medications Medication Instructions Recorded Amlodipine Besylate [Norvasc] 5 mg PO DAILY 01/12/12 Famotidine [Pepcid] 20 mg PO BID #20 tablet 04/07/12 Pantoprazole Sodium [Protonix] 40 mg PO ONCE #20 tablet.ec 12/19/12 Amlodipine Besylate [Norvasc -] 5 mg PO DAILY #0 tablet 12/27/12 Aripiprazole [Abilify -] 5 mg PO DAILY #0 tablet 12/27/12 Citalopram Hydrobromide [Celexa -] 20 mg PO DAILY #0 tablet 12/27/12 Docusate Sodium [Colace -] 100 mg PO BID #20 capsule 12/27/12 Donepezil HCl [Aricept -] 5 mg PO DAILY #0 tablet 12/27/12 Mag Hydrox/Al Hydrox/Simeth 30 ml PO Q6H PRN #0 cup 12/27/12 [Mylanta Oral Suspension -] Metoclopramide HCl [Reglan -] 5 mg PO TID #0 tablet 12/27/12 Pantoprazole Sodium [Protonix -] 40 mg PO DAILY #0 tablet.ec 12/27/12 REVIEW OF SYSTEMS CONSTITUTIONAL: Absent: fever, chills, diaphoresis, generalized weakness, malaise, loss of appetite, weight change HEENT: Absent: rhinorrhea, nasal congestion, throat pain, throat swelling, difficulty swallowing, mouth swelling, ear pain, eye pain, visual changes CARDIOVASCULAR: Absent: chest pain, syncope, palpitations, irregular heart rate, lightheadedness , peripheral edema RESPIRATORY: Absent: cough, shortness of breath, dyspnea with exertion, orthopnea, wheezing, stridor, hemoptysis GASTROINTESTINAL: Absent: abdominal pain, abdominal distension, nausea, vomiting, diarrhea, constipation, melena, hematochezia GENITOURINARY: Absent: dysuria, frequency, urgency, hesitancy, hematuria, flank pain, genital pain MUSCULOSKELETAL: Absent: myalgia, arthralgia, joint swelling, back pain, neck pain SKIN: Absent: rash, itching, pallor HEMATOLOGIC/IMMUNOLOGIC: Absent: easy bleeding, easy bruising, lymphadenopathy, frequent infections ENDOCRINE: Absent: unexplained weight gain, unexplained weight loss, heat intolerance, cold intolerance NEUROLOGIC: Absent: headache, focal weakness or paresthesias, dizziness, unsteady gait, seizure, mental status changes, bladder or bowel incontinence PSYCHIATRIC: Absent: anxiety, depression, suicidal or homicidal ideation, hallucinations. PHYSICAL EXAMINATION Vital Signs - 24 hr 11/23/16 11/23/16 11/23/16 19:04 19:52 20:20 Temperature Pulse Rate Pulse Rate [ 125 H 95 H 119 H Apical] Respiratory 16 16 16 Rate Blood Pressure Blood Pressure 143/80 109/68 142/75 [Left] O2 Sat by Pulse 96 96 96 Oximetry (%) 11/24/16 11/24/16 11/24/16 00:27 00:35 00:55 Temperature 99.0 F 99.2 F Pulse Rate 123 H 119 H Pulse Rate [ Apical] Respiratory 20 18 20 Rate Blood Pressure 120/67 120/67 Blood Pressure [Left] O2 Sat by Pulse 100 Oximetry (%) 11/24/16 11/24/16 11/24/16 01:00 01:15 01:30 Temperature Pulse Rate 121 H 120 H 120 H Pulse Rate [ Apical] Respiratory 20 20 18 Rate Blood Pressure 114/69 103/60 123/68 Blood Pressure [Left] O2 Sat by Pulse 100 100 100 Oximetry (%) 11/24/16 11/24/16 11/24/16 01:45 02:00 02:15 Temperature Pulse Rate 120 H 121 H 121 H Pulse Rate [ Apical] Respiratory 18 18 20 Rate Blood Pressure 129/72 90/53 92/52 Blood Pressure [Left] O2 Sat by Pulse 100 100 100 Oximetry (%) 11/24/16 11/24/16 11/24/16 02:27 02:30 02:51 Temperature 99.0 F Pulse Rate 121 H 120 H Pulse Rate [ Apical] Respiratory 20 18 20 Rate Blood Pressure 92/60 90/50 Blood Pressure [Left] O2 Sat by Pulse 99 Oximetry (%) 11/24/16 11/24/16 11/24/16 03:35 04:00 05:30 Temperature 98.3 F Pulse Rate 133 H Pulse Rate [ Apical] Respiratory 20 20 23 Rate Blood Pressure 110/67 Blood Pressure [Left] O2 Sat by Pulse Oximetry (%) 11/24/16 11/24/16 06:00 07:35 Temperature Pulse Rate 143 H Pulse Rate [ Apical] Respiratory 21 20 Rate Blood Pressure 118/69 Blood Pressure [Left] O2 Sat by Pulse Oximetry (%) GENERAL: Awake, alert, and fully oriented, in no acute distress. HEAD: Normal with no signs of trauma. EYES: Pupils equal, round and reactive to light, extraocular movements intact, sclera anicteric, conjunctiva clear. No lid lag. EARS, NOSE, THROAT: Ears normal, nares patent, oropharynx clear without exudates. Moist mucous membranes. NECK: Normal range of motion, supple without lymphadenopathy, JVD, or masses. LUNGS: Breath sounds equal, clear to auscultation bilaterally. No wheezes, and no crackles. No accessory muscle use. HEART: Regular rate and rhythm, normal S1 and S2 without murmur, rub or gallop. ABDOMEN: Soft, nontender, not distended, normoactive bowel sounds, no guarding, no rebound, no masses. No hepatomegaly or splenomegaly. MUSCULOSKELETAL: Normal range of motion at all joints. No bony deformities or tenderness. No CVA tenderness. UPPER EXTREMITIES: 2+ pulses, warm, well-perfused. No cyanosis. No clubbing. No peripheral edema. LOWER EXTREMITIES: 2+ pulses, warm, well-perfused. No calf tenderness. No peripheral edema. NEUROLOGICAL: Cranial nerves II-XII intact. Normal speech. Normal gait. PSYCHIATRIC: Cooperative. Good eye contact. Appropriate mood and affect. SKIN: Warm, dry, normal turgor, no rashes or lesions noted, normal capillary refill. Laboratory Results - last 24 hr 11/24/16 11/24/16 11/24/16 02:20 02:20 03:30 WBC 8.2 D RBC 4.50 Hgb 10.0 L D Hct 31.6 L MCV 70.3 L MCH 22.2 L MCHC 31.6 L RDW 15.2 Plt Count 110 L D MPV 8.4 Neutrophils % 75.3 Lymphocytes % 17.5 D Monocytes % 6.3 Eosinophils % 0.6 Basophils % 0.3 Anticoagulation Therapy Y Puncture Site Right radial ABG pH 7.55 H ABG pCO2 at Pt Temp 22.1 L ABG pO2 at Pt Temp 287.0 H* ABG HCO3 19.4 L ABG O2 Sat (Measured) 98.5 ABG O2 Content 15.9 ABG Base Excess -1.4 Chidi Test Positive O2 Delivery Device Mech vent Oxygen Flow Rate 80% Vent Mode A/c Vent Rate 10 Mechanical Rate Yes PEEP 5.0 Pressure Support Vent 500 Sodium 142 Potassium 3.5 Chloride 110 H Carbon Dioxide 22 D Anion Gap 10 BUN 12 Creatinine 0.6 Creat Clearance w eGFR Random Glucose 188 H D Calcium 7.1 L D Phosphorus Magnesium Total Bilirubin AST ALT Alkaline Phosphatase Total Protein Albumin 11/24/16 11/24/16 05:00 05:00 WBC 12.4 H D RBC 5.17 Hgb 11.5 D Hct 35.9 MCV 69.3 L MCH 22.1 L MCHC 32.0 RDW 15.1 Plt Count 278 D MPV 8.1 Neutrophils % 83.9 H Lymphocytes % 9.4 D Monocytes % 6.4 Eosinophils % 0.1 D Basophils % 0.2 Anticoagulation Therapy Puncture Site ABG pH ABG pCO2 at Pt Temp ABG pO2 at Pt Temp ABG HCO3 ABG O2 Sat (Measured) ABG O2 Content ABG Base Excess Chidi Test O2 Delivery Device Oxygen Flow Rate Vent Mode Vent Rate Mechanical Rate PEEP Pressure Support Vent Sodium 141 Potassium 3.5 Chloride 109 H Carbon Dioxide 21 Anion Gap 11 BUN 12 Creatinine 0.7 Creat Clearance w eGFR > 60 Random Glucose 198 H Calcium 7.6 L Phosphorus 2.3 L Magnesium 1.5 L D Total Bilirubin 2.2 H D AST 17 ALT 19 D Alkaline Phosphatase 52 D Total Protein 4.3 L D Albumin 2.2 L ASSESSMENT/PLAN: 71 yo F from [facility] with significant PMHx of HTN, DM, dementia, and hypercholesterolemia, admitted for intestinal perforation and emergent surgery. Problem List - Problem (1) Intestinal perforation Assessment/Plan: * Free air under diaphragm and evaluated by Dr. Suazo * She will be taken back to OR this evening * Admission to ICU * Given Levaquin and Metronidazole in ED x1 * (2) Diabetes type 2, controlled Assessment/Plan: * NPO for now * BGM Q4h * diabetic diet when she can tolerated PO * No home meds. (3) Hyperlipemia Assessment/Plan: * Not on statins. (4) Dementia Assessment/Plan: * meds held for now as patient is NPO * Can restart when medically stable. (5) DVT prophylaxis Assessment/Plan: * SCD's for now * can initiate Heparin subq once HD stable after surgery.
[2016-11-24] MEDS ORDERED: MAGNESIUM SULF 50% (8.12 MEQ/2 ML-1 GM VIAL) IVPB ONE ×3 (08:42→11:54)
--- NOTE | 2016-11-24 09:17 | SURG ---
Surgery Potato Seed Cutter Note Potato Seed Cutter: Charlotte Roger PA-C Date of Service: 11/23/16 Diagnosis: acute abdomen, pneumoperitoneum Procedure: exploratory lapartomy/hartmans procedure I was present for the entirety of the operative procedure. For further detail, please refer to operative report. Visit type - Case Type Case Type: ED Admission - Emergency Emergency Visit: Yes ED Registration Date: 11/23/16 Care time: The patient presented to the Emergency Department on the above date and was hospitalized for further evaluation of their emergent condition. - New patient This patient is new to me today: Yes Date on this admission: 11/24/16 - Critical Care Critical Care patient: No
[2016-11-24] MEDS ORDERED: LACTATED RINGERS SOLUTION 1,000 ML IV STA (09:18)
[2016-11-24] MEDS ORDERED: SODIUM CHLORIDE 1,000 ML IV STA ×2 (09:40→14:32)
[2016-11-24] MEDS ORDERED: SODIUM CHLORIDE 1,000 ML IV SCH (09:45)
[2016-11-24] MEDS ORDERED: MUPIROCIN 2% TOPICAL OINTMENT FOR DECOLONIZATION NS SCH (10:00)
[2016-11-24] MEDS ORDERED: POTASSIUM PHOSPHATE 30 MM in SODIUM CHLORIDE 250 ML IVPB ONE (10:00)
[2016-11-24] MEDS ORDERED: HEPARIN NA (PORCINE) 5,000 UNITS/ML 1ML VIAL SQ SCH (10:00)
--- NOTE | 2016-11-24 10:02 | PN ---
Progress Note (short form) - Note Progress Note: Pt remained intubated overnight with sedation/pain medication drips. Vital Signs Period Temp Pulse Resp BP Sys/Campbell Pulse Ox Last 24 Hr 98.3 F-100.7 F 95-143 16-24 90-143/50-83 96-100 NGT-60 ml light brown RIMMA-235ml serosangrenous uop-60ml dark/glenda colored urine GEN: Pt intubated on sedation/responds to pain CV:RR/tachycardic Lungs: CTA b/l anteriorly ABD: soft, incisional tenderness/diffuse/midline dressing c/d/i, ostomy viable with no fuction neted LE: SCDs in place/no calf swelling or tenderness noted b/l CBC, BMP 11/24/16 05:00 CMP Sodium 141 mmol/L (136-145) 11/24/16 05:00 Potassium 3.5 mmol/L (3.5-5.1) 11/24/16 05:00 Chloride 109 mmol/L (98-107) H 11/24/16 05:00 Carbon Dioxide 21 mmol/L (21-32) 11/24/16 05:00 Anion Gap 11 (8-16) 11/24/16 05:00 BUN 12 mg/dL (7-18) 11/24/16 05:00 Creatinine 0.7 mg/dL (0.55-1.02) 11/24/16 05:00 Creat Clearance w eGFR > 60 (>60) 11/24/16 05:00 Random Glucose 198 mg/dL (74-106) H 11/24/16 05:00 Lactic Acid 2.8 mmol/L (0.4-2.0) H* 11/23/16 16:10 Calcium 7.6 mg/dL (8.5-10.1) L 11/24/16 05:00 Phosphorus 2.3 mg/dL (2.5-4.9) L 11/24/16 05:00 Magnesium 1.5 mg/dL (1.8-2.4) L D 11/24/16 05:00 Total Bilirubin 2.2 mg/dL (0.2-1.0) H D 11/24/16 05:00 AST 17 U/L (15-37) 11/24/16 05:00 ALT 19 U/L (12-78) D 11/24/16 05:00 Alkaline Phosphatase 52 U/L (45-117) D 11/24/16 05:00 Total Protein 4.3 g/dl (6.4-8.2) L D 11/24/16 05:00 Albumin 2.2 g/dl (3.4-5.0) L 11/24/16 05:00 Microbiology Blood cultures/OR peritoneal fluid culture pending <Charlotte Roger - Last Filed: 11/24/16 10:06> - Note Progress Note: Attending Surgeon POD #1 Concur w/ a/p as outlined by Deidre Roger PA-C Continue as per orders and ICU team Harvinder Suazo MD FACS <Harvinder Suazo - Last Filed: 11/24/16 10:34> Problem List - Problems (1) Intestinal perforation Assessment/Plan: s/p exploratory laparotomy for sigmoid perforation D/w medical team/ID consult to broaden IV abx coverage, OR peritoneal culture pending. Continue npo/ngt decompression/IV hydration S/w ICU team will attempt to wean and extubate patient Tachycardiac with decreased uop overnight. IV bolus today, she is most likely third spacing fluid and wiill require bolus to improve uop and HR DVT ppx with Hep SQ TID IV protonix Pt seen and examine and examined Dr. Suazo Code(s): K63.1 - PERFORATION OF INTESTINE (NONTRAUMATIC) <Charlotte Roger - Last Filed: 11/24/16 10:06>
[2016-11-24] MEDS: MUPIROCIN 2% TOPICAL OINTMENT FOR DECOLONIZATION NS SCH ×2 (10:30→21:10)
[2016-11-24] MEDS: PANTOPRAZOLE SODIUM 100 ML IVPB SCH (10:38)
--- NOTE | 2016-11-24 11:12 | EKG ---
Test Reason : Blood Pressure : / mmHG Vent. Rate : 122 BPM Atrial Rate : 122 BPM P-R Int : 128 ms QRS Dur : 076 ms QT Int : 312 ms P-R-T Axes : 058 009 052 degrees QTc Int : 444 ms SINUS TACHYCARDIA POSSIBLE LEFT ATRIAL ENLARGEMENT LOW VOLTAGE QRS BORDERLINE ECG WHEN COMPARED WITH ECG OF 10-MAR-2012 10:57, VENT. RATE HAS INCREASED BY 61 BPM Confirmed by SUSAN PUTNAM MD ([id number]) on 11/24/2016 11:11:52 AM Referred By: Confirmed By:SUSAN PUTNAM MD
[2016-11-24] MEDS ORDERED: MAGNESIUM SULF 50% (8.12 MEQ/2 ML-1 GM VIAL) ONE (11:23)
--- NOTE | 2016-11-24 11:39 | CONSULT ---
Consult Consult Specialty:: Infectious Disease Reason for Consultation:: Perforated viscous - History of Present Illness History of Present Illness: 71 year old woman from [facility] with a pmh of HTN, DM, HLD, dementia came to [facility] ED yesterday after an outpatient xray revealed free air under the diaphragm. Per family, she had been complaining of abdominal pain for several weeks, and on Monday she began to have increased abdominal pain with multiple episodes of vomiting brownish fluid. ED confirmed pneumoperitoneum , administered flagyl and levoquin, and she was taken into the OR for an ex-lap with sigmoid resection/colostomy for perforated sigmoid colon. She is currently intubated in the ICU. ID consulted for perforated viscous. Patient is a nonsmoker, nondrinker. 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 Cardio/Vascular: Yes: HTN, Hyperlipdemia ...: No - Alcohol/Substance Use Hx Alcohol Use: No - Smoking History Smoking history: Never smoked Have you smoked in the past 12 months: No Aproximately how many cigarettes per day: 0 - Social History Usual Living Arrangement: Senior Care Home Medications - Allergies Allergies/Adverse Reactions: Allergies Allergy/AdvReac Type Severity Reaction Status Date / Time No Known Allergies Allergy Verified 12/19/12 14:22 - Home Medications Home Medications: Ambulatory Orders Amlodipine Besylate [Norvasc] 5 mg PO DAILY 01/12/12 Famotidine [Pepcid] 20 mg PO BID #20 tablet 04/07/12 Pantoprazole Sodium [Protonix] 40 mg PO ONCE #20 tablet.ec 12/19/12 Amlodipine Besylate [Norvasc -] 5 mg PO DAILY #0 tablet 12/27/12 Aripiprazole [Abilify -] 5 mg PO DAILY #0 tablet 12/27/12 Citalopram Hydrobromide [Celexa -] 20 mg PO DAILY #0 tablet 12/27/12 Docusate Sodium [Colace -] 100 mg PO BID #20 capsule 12/27/12 Donepezil HCl [Aricept -] 5 mg PO DAILY #0 tablet 12/27/12 Mag Hydrox/Al Hydrox/Simeth [Mylanta Oral Suspension -] 30 ml PO Q6H PRN #0 cup 12/27/12 Metoclopramide HCl [Reglan -] 5 mg PO TID #0 tablet 12/27/12 Pantoprazole Sodium [Protonix -] 40 mg PO DAILY #0 tablet.ec 12/27/12 Review of Systems Unable to obtain ROS, reason: Intubated Physical Exam Vital Signs: Vital Signs Temperature 99.5 F 11/24/16 10:00 Pulse Rate 130 H 11/24/16 10:54 Respiratory Rate 27 H 11/24/16 10:54 Blood Pressure 118/67 11/24/16 10:00 O2 Sat by Pulse Oximetry (%) 100 11/24/16 10:54 Constitutional: Yes: No Distress, Calm (Patient is sedated) Eyes: Yes: Conjunctiva Clear, EOM Intact HENT: Yes: Atraumatic, Normocephalic Cardiovascular: Yes: Tachycardia (in the 130's), S1, S2. No: Gallop, Murmur, Rub Respiratory: Yes: Regular, Intubated Gastrointestinal: Yes: Soft, Hypoactive Bowel Sounds, Other (Midline surgical scar noted. Colostomy in place, well perfused, draining brown fluid. RIMMA drain in place in right abdomen draining serosanguinous fluid) Extremities: Yes: WNL Edema: No Peripheral Pulses WNL: Yes Integumentary: Yes: Incision Wound/Incision: Yes: Dressing Dry and Intact, Reddened Neurological: Yes: Other (Unable to assess neurological function due to intubated and sedated status) Labs: CBC, BMP 11/24/16 05:00 11/24/16 05:00 Imaging - Results Chest X-ray: Report Reviewed X-ray: Report Reviewed Problem List - Problems (1) Intestinal perforation Code(s): K63.1 - PERFORATION OF INTESTINE (NONTRAUMATIC) Assessment/Plan 71 year old female from [place] w/ pmh HTN, DM, dementia, HLD seen by ID s/p ex-lap with sigmoid resection/colostomy for perforated sigmoid colon likely 2/2 perforated diverticulum. -Trend WBC -monitor RIMMA drainage and colostomy drainage for changes to consistency of fluid -clean dressing changes -Patient is from [facility], would feel more comfortable broadening coverage of antibiotics -dc levoquin -start zosyn 4.5g IV -continue flagyl 500 IV
--- NOTE | 2016-11-24 12:37 | PN ---
Teaching Attending Note Name of Resident: Bennett Cavazos ATTENDING PHYSICIAN STATEMENT I saw and evaluated the patient. I reviewed the resident's note and discussed the case with the resident. I agree with the resident's findings and plan as documented. SUBJECTIVE:ID Post op less then 24 hours Levofloxacin and metronidazole OBJECTIVE:Post dressing RIMMA drain right colostomy ASSESSMENT AND PLAN: Selected Entries 11/24/16 11/24/16 11/24/16 10:00 10:54 12:08 Temperature 99.5 F Pulse Rate 130 H Respiratory 12 Rate O2 Sat by Pulse 100 Oximetry (%) Microbiology 02/22/12 06:21 Urine - Urine Clean Catch Urine Culture - Final NO GROWTH OBTAINED 01/08/12 06:15 Urine - Urine Clean Catch Urine Culture - Final 10/27/11 Unknown Urine - Urine Clean Catch Urine Culture - Final Laboratory Tests 11/23/16 11/24/16 11/24/16 16:10 05:00 05:00 WBC 14.4 H D 12.4 H D RBC 5.32 H Hgb 11.5 D Hct 37.1 35.9 Plt Count 349 D 278 D BUN 12 Creatinine 0.7 Total Bilirubin 2.2 H D AST 17 ALT 19 D Alkaline Phosphatase 52 D Assessment PERFORATION SIGMOID and PERITIONITIS PLAN CULTURES PENDING Zosyn pending c/s Bernadine RASCON Problem List - Problems (1) Intestinal perforation Code(s): K63.1 - PERFORATION OF INTESTINE (NONTRAUMATIC) (2) Peritonitis Code(s): K65.9 - PERITONITIS, UNSPECIFIED
--- NOTE | 2016-11-24 13:50 | PN ---
Progress Note (short form) - Note Progress Note: Anesthesiology Post-op POD#0 s/p Exploratory laparotomy with sigmoid colectomy and end colostomy under GA last night. Pt. remains intubated and sedated in ICU today. Hemodynamically, she has improved with fluid bolus. Otherwise, no new issues. Continue care as per ICU.
[2016-11-24] MEDS: HEPARIN NA (PORCINE) 5,000 UNITS/ML 1ML VIAL SQ SCH ×2 (14:04→21:17)
--- NOTE | 2016-11-24 14:21 | PN ---
Physical Exam: SUBJECTIVE: Patient seen and examined This morning she was still intubated, and sedated. OBJECTIVE: Vital Signs Period Temp Pulse Resp BP Sys/Campbell Pulse Ox Last 24 Hr 98.3 F-99.5 F 95-143 12-27 90-143/50-80 96-100 GENERAL: The patient sedated and intubated with oropharyngeal tube in place. Central line in place on R. HEAD: Normal with no signs of trauma. LUNGS: Breath sounds equal, clear to auscultation bilaterally, no wheezes, no crackles, no accessory muscle use. HEART: Regular rate and rhythm, S1, S2 without murmur, rub or gallop. ABDOMEN: Midline dressing from the sternum to the suprapubic area. Colostomy bag and Pete Maxwell drain in situ. EXTREMITIES: no edema. Laboratory Results - last 24 hr 11/24/16 11/24/16 11/24/16 02:20 02:20 03:30 WBC 8.2 D RBC 4.50 Hgb 10.0 L D Hct 31.6 L MCV 70.3 L MCH 22.2 L MCHC 31.6 L RDW 15.2 Plt Count 110 L D MPV 8.4 Neutrophils % 75.3 Lymphocytes % 17.5 D Monocytes % 6.3 Eosinophils % 0.6 Basophils % 0.3 Anticoagulation Therapy Y Puncture Site Right radial ABG pH 7.55 H ABG pCO2 at Pt Temp 22.1 L ABG pO2 at Pt Temp 287.0 H* ABG HCO3 19.4 L ABG O2 Sat (Measured) 98.5 ABG O2 Content 15.9 ABG Base Excess -1.4 Chidi Test Positive O2 Delivery Device Mech vent Oxygen Flow Rate 80% Vent Mode A/c Vent Rate 10 Mechanical Rate Yes PEEP 5.0 Pressure Support Vent 500 Sodium 142 Potassium 3.5 Chloride 110 H Carbon Dioxide 22 D Anion Gap 10 BUN 12 Creatinine 0.6 Creat Clearance w eGFR Random Glucose 188 H D Calcium 7.1 L D Phosphorus Magnesium Total Bilirubin AST ALT Alkaline Phosphatase Total Protein Albumin 11/24/16 11/24/16 05:00 05:00 WBC 12.4 H D RBC 5.17 Hgb 11.5 D Hct 35.9 MCV 69.3 L MCH 22.1 L MCHC 32.0 RDW 15.1 Plt Count 278 D MPV 8.1 Neutrophils % 83.9 H Lymphocytes % 9.4 D Monocytes % 6.4 Eosinophils % 0.1 D Basophils % 0.2 Anticoagulation Therapy Puncture Site ABG pH ABG pCO2 at Pt Temp ABG pO2 at Pt Temp ABG HCO3 ABG O2 Sat (Measured) ABG O2 Content ABG Base Excess Chidi Test O2 Delivery Device Oxygen Flow Rate Vent Mode Vent Rate Mechanical Rate PEEP Pressure Support Vent Sodium 141 Potassium 3.5 Chloride 109 H Carbon Dioxide 21 Anion Gap 11 BUN 12 Creatinine 0.7 Creat Clearance w eGFR > 60 Random Glucose 198 H Calcium 7.6 L Phosphorus 2.3 L Magnesium 1.5 L D Total Bilirubin 2.2 H D AST 17 ALT 19 D Alkaline Phosphatase 52 D Total Protein 4.3 L D Albumin 2.2 L Active Medications Generic Name Dose Route Start Last Admin Trade Name Freq PRN Reason Stop Dose Admin Acetaminophen 1,000 mg 11/24/16 00:46 Ofirmev Injection - IVPB 11/24/16 18:47 Q6H PRN FEVER OR PAIN Heparin Sodium (Porcine) 5,000 unit 11/24/16 14:00 11/24/16 14:04 Heparin - SQ 5,000 unit TID CELENA Administration Pantoprazole Sodium 100 mls @ 200 mls/hr 11/24/16 10:00 11/24/16 10:38 Protonix 40mg Ivpb (Pre-Docked) IVPB 200 mls/hr DAILY CELENA Administration Metronidazole 100 mls @ 100 mls/hr 11/24/16 02:00 11/24/16 10:38 Flagyl 500mg Premixed Ivpb - IVPB 100 mls/hr Q8H-IV CELENA Administration Levofloxacin 100 mls @ 100 mls/hr 11/24/16 18:00 Levaquin 500 Mg Premixed Ivpb - IVPB 11/24/16 18:59 ONCE ONE Lactated Ringer's 1,000 mls @ 150 mls/hr 11/24/16 00:45 11/24/16 00:45 Lactated Ringers Solution IV 11/24/16 23:00 150 mls/hr ASDIR CELENA Administration Fentanyl 500 mcg/ Dextrose 100 mls @ 20 mls/hr 11/24/16 01:15 11/24/16 01:15 IVPB 11/25/16 01:14 20 mls/hr TITR CELENA Administration 100 MCG/HR Piperacillin Sod/Tazobactam Sod 100 mls @ 200 mls/hr 11/24/16 18:00 Zosyn 4.5gm Ivpb (Pre-Docked) IVPB Q8H-IV CELENA Protocol Mupirocin 1 applic 11/24/16 10:00 11/24/16 10:30 Bactroban Ointment (For Decolonization) - NS 11/29/16 09:59 1 applic BID CELENA Administration Ondansetron HCl 4 mg 11/24/16 00:37 Zofran Injection IVPB Q6H PRN NAUSEA ASSESSMENT/PLAN: 71 year old nonverbal woman from [facility] with significant PMHx of HTN, DM, dementia, hyperlipidemia, and hypercholesterolemia admitted yesterday for perforated bowel, had emergent laparotomy with with sigmoid resection/ colostomy for perforated sigmoid colon. #Perforated bowel: POD1 iv antibiotics- metronidazole and zosyn continued Levoquin stopped as per ID N/saline given Lactated ringers given Albumin given fentanyl and iv acetaminophen for pain mupirocin ointment for decolonization Per ID- Levofloxacin and metronidazole pending cultures -Post dressing RIMMA drain right colostomy -intubated-weaning trial and further management as per ICU team # Hypoalbuminemia: Albumin given overnight #HTN-Amlodipine -on outpatient basis, intubated holding PO meds #DM- No home meds noted #dementia intubated holding PO meds #hyperlipidemia intubated holding PO meds #hypercholesterolemia; intubated holding PO meds #FEN: On i.v. Normal saline and Lactated Ringers today CMP, Mg, P, Ca NPO s/p laparotomy #Prophylaxis DVT: SubQ heparin GI: IV protonix Visit type - Emergency Visit Emergency Visit: Yes ED Registration Date: 11/23/16 Care time: The patient presented to the Emergency Department on the above date and was hospitalized for further evaluation of their emergent condition. - New Patient This patient is new to me today: Yes Date on this admission: 11/24/16 - Critical Care Critical Care patient: Yes Total Critical Care Time (in minutes): 45 Critical Care Statement: The care of this patient involved high complexity decision making to prevent further life threatening deterioration of the patient 's condition and/or to evaluate & treat vital organ system(s) failure or risk of failure. - Discharge Referral Referred to [facility] No
--- NOTE | 2016-11-24 15:06 | PN ---
Teaching Attending Note Name of Resident: Minna Navas ATTENDING PHYSICIAN STATEMENT I saw and evaluated the patient. I reviewed the resident's note and discussed the case with the resident. I agree with the resident's findings and plan as documented. SUBJECTIVE: Patient is in ICU, intubated. s/p surgery. Family at bedside. OBJECTIVE: Vital Signs Temperature 98.8 F 11/24/16 14:00 Pulse Rate 137 H 11/24/16 14:37 Respiratory Rate 24 11/24/16 14:07 Blood Pressure 140/75 11/24/16 14:00 O2 Sat by Pulse Oximetry (%) 100 11/24/16 14:37 CBCD WBC 12.4 K/mm3 (4.0-10.0) H D 11/24/16 05:00 RBC 5.17 M/mm3 (3.60-5.2) 11/24/16 05:00 Hgb 11.5 GM/dL (10.7-15.3) D 11/24/16 05:00 Hct 35.9 % (32.4-45.2) 11/24/16 05:00 MCV 69.3 fl (80-96) L 11/24/16 05:00 MCHC 32.0 g/dl (32.0-36.0) 11/24/16 05:00 RDW 15.1 % (11.6-15.6) 11/24/16 05:00 Plt Count 278 K/MM3 (134-434) D 11/24/16 05:00 MPV 8.1 fl (7.5-11.1) 11/24/16 05:00 CMP Sodium 141 mmol/L (136-145) 11/24/16 05:00 Potassium 3.5 mmol/L (3.5-5.1) 11/24/16 05:00 Chloride 109 mmol/L (98-107) H 11/24/16 05:00 Carbon Dioxide 21 mmol/L (21-32) 11/24/16 05:00 Anion Gap 11 (8-16) 11/24/16 05:00 BUN 12 mg/dL (7-18) 11/24/16 05:00 Creatinine 0.7 mg/dL (0.55-1.02) 11/24/16 05:00 Creat Clearance w eGFR > 60 (>60) 11/24/16 05:00 Random Glucose 198 mg/dL (74-106) H 11/24/16 05:00 Calcium 7.6 mg/dL (8.5-10.1) L 11/24/16 05:00 Total Bilirubin 2.2 mg/dL (0.2-1.0) H D 11/24/16 05:00 AST 17 U/L (15-37) 11/24/16 05:00 ALT 19 U/L (12-78) D 11/24/16 05:00 Alkaline Phosphatase 52 U/L (45-117) D 11/24/16 05:00 Total Protein 4.3 g/dl (6.4-8.2) L D 11/24/16 05:00 Albumin 2.2 g/dl (3.4-5.0) L 11/24/16 05:00 Current Medications Generic Name Dose Route Start Last Admin Trade Name Freq PRN Reason Stop Dose Admin Acetaminophen 1,000 mg 11/24/16 00:46 Ofirmev Injection - IVPB 11/24/16 18:47 Q6H PRN FEVER OR PAIN Heparin Sodium (Porcine) 5,000 unit 11/24/16 14:00 11/24/16 14:04 Heparin - SQ 5,000 unit TID CELENA Administration Hydromorphone HCl 1 mg 11/24/16 14:32 Dilaudid Injection - IVPUSH Q4H PRN PAIN Pantoprazole Sodium 100 mls @ 200 mls/hr 11/24/16 10:00 11/24/16 10:38 Protonix 40mg Ivpb (Pre-Docked) IVPB 200 mls/hr DAILY CELENA Administration Metronidazole 100 mls @ 100 mls/hr 11/24/16 02:00 11/24/16 10:38 Flagyl 500mg Premixed Ivpb - IVPB 100 mls/hr Q8H-IV CELENA Administration Levofloxacin 100 mls @ 100 mls/hr 11/24/16 18:00 Levaquin 500 Mg Premixed Ivpb - IVPB 11/24/16 18:59 ONCE ONE Lactated Ringer's 1,000 mls @ 150 mls/hr 11/24/16 00:45 11/24/16 00:45 Lactated Ringers Solution IV 11/24/16 23:00 150 mls/hr ASDIR CELENA Administration Fentanyl 500 mcg/ Dextrose 100 mls @ 20 mls/hr 11/24/16 01:15 11/24/16 01:15 IVPB 11/25/16 01:14 20 mls/hr TITR CELENA Administration 100 MCG/HR Piperacillin Sod/Tazobactam Sod 100 mls @ 200 mls/hr 11/24/16 18:00 Zosyn 4.5gm Ivpb (Pre-Docked) IVPB Q8H-IV CELENA Protocol Sodium Chloride 1,000 mls @ 1,000 mls/hr 11/24/16 14:32 Normal Saline - IV 11/24/16 15:31 ASDIR STA Mupirocin 1 applic 11/24/16 10:00 11/24/16 10:30 Bactroban Ointment (For Decolonization) - NS 11/29/16 09:59 1 applic BID CELENA Administration Ondansetron HCl 4 mg 11/24/16 00:37 Zofran Injection IVPB Q6H PRN NAUSEA Home Medications Medication Instructions Recorded Amlodipine Besylate [Norvasc] 5 mg PO DAILY 01/12/12 Famotidine [Pepcid] 20 mg PO BID #20 tablet 04/07/12 Pantoprazole Sodium [Protonix] 40 mg PO ONCE #20 tablet.ec 12/19/12 Amlodipine Besylate [Norvasc -] 5 mg PO DAILY #0 tablet 12/27/12 Aripiprazole [Abilify -] 5 mg PO DAILY #0 tablet 12/27/12 Citalopram Hydrobromide [Celexa -] 20 mg PO DAILY #0 tablet 12/27/12 Docusate Sodium [Colace -] 100 mg PO BID #20 capsule 12/27/12 Donepezil HCl [Aricept -] 5 mg PO DAILY #0 tablet 12/27/12 Mag Hydrox/Al Hydrox/Simeth 30 ml PO Q6H PRN #0 cup 12/27/12 [Mylanta Oral Suspension -] Metoclopramide HCl [Reglan -] 5 mg PO TID #0 tablet 12/27/12 Pantoprazole Sodium [Protonix -] 40 mg PO DAILY #0 tablet.ec 12/27/12 Abd.XR (11/23) - reported positive for Free air under diaphragm. CXR (11/24) - ET tube well positioned. No pneumothorax or pleural effusions. Possible trace atelectasis at LLL. PE: positive for ET-Tube, intubated Heart:Tachy to 140s ,[id number] Abdomen: positive for Osteomy site clean, positive for RIMMA drainage of serasanguineous fluid ASSESSMENT AND PLAN: Patient is a 71 yo F from [facility] with significant PMHx of HTN, DM, dementia , hyperlipidemia, and hypercholesterolemia, who presents to the ER for free air under the diaphragm that was seen on outpatient xray. Family functioning as historian as she is nonverbal # POD# 1 s/p exploratory laparotomy for sigmoid perforation; On IV antibiotic, received Levaquin/Flagyl , ID consulted switched to IV Zosyn waiting for panculture result, Peritoneal fluid cx's pending as well. Discussed with Surgical team, IVF bolus with maintenance ordered. # Acute respiratory failure s/p Surgery ; weaning trial and further management as per ICU team. #Hx of Dementia hold for po meds for now, since intubated # Diabetes type 2, controlled, sc with coverage # Hx Hyperlipemia hold po meds for now. DVT ppx: Hep SQ GI Px: IV protonix Critiacal care time of 35m
[2016-11-24] MEDS ORDERED: PT OWN MED DRAWER 7, Y5N ONE (16:48)
[2016-11-24] MEDS: HYDROmorphone HCL CARPU-JECT 1 MG/1 ML DISP.SYRIN IVPUSH PRN (17:49)
[2016-11-24] MEDS: PIPERACILLIN/TAZOB 4.5 GM 100 ML IVPB SCH (17:50)
[2016-11-24] MEDS ORDERED: LEVOFLOXACIN 500 MG IVPB 100 ML IVPB ONE (18:00)
[2016-11-24] MEDS ORDERED: HYDROmorphone HCL CARPU-JECT 1 MG/1 ML DISP.SYRIN IVPB ONE (20:43)
[2016-11-24] MEDS ORDERED: CHLORHEXIDINE GLUCONATE 4% CLEANSER FOR DECOLONIZATION TP SCH ×2 (22:00)
[2016-11-25 06:38] LABS: BASOPHIL 0.5 % (0-2.0); EOSINOPHIL 0.5 % (0-4.5); MCH 22.1 pg (25.7-33.7); MCHC 31.6 g/dl (32.0-36.0); MEAN CELL VOLUME 69.8 fl (80-96); MEAN PLT VOLUME 8.3 fl (7.5-11.1); NEUTROPHILS 81.6 % (42.8-82.8); PLATELET COUNT 246 K/MM3 (134-434); RDW 15.8 % (11.6-15.6); WHITE BLOOD COUNT 14.1 K/mm3 (4.0-10.0)
[2016-11-25 06:51] LABS: ALBUMIN 1.7 g/dl (3.4-5.0); ALK PHOS 52 U/L (45-117); ANION GAP 8 (8-16); BILIRUBIN,TOTAL 0.7 mg/dL (0.2-1.0); CALCIUM 7.6 mg/dL (8.5-10.1); CO2 25 mmol/L (21-32); CREATININE 0.4 mg/dL (0.55-1.02); GLUCOSE,RANDOM 123 mg/dL (74-106); PHOSPHOROUS 2.2 mg/dL (2.5-4.9); SGPT/ALT 16 U/L (12-78); TOT PROT 4.2 g/dl (6.4-8.2)
[2016-11-25 06:56] LABS: SGOT/AST 21 U/L (15-37)
[2016-11-25 07:29] LABS: ALLENS TEST POSITIVE; ART PUNCT SITE LEFT RADIAL; ARTERIAL BLD GAS O2 SATURATION 99.9 % (90-98.9); ARTERIAL BLOOD GAS BASE EXCESS 1.7 meq/l (-2-2); ARTERIAL BLOOD GAS HCO3 24.9 meq/L (22-26); ARTERIAL BLOOD GAS pH 7.46 (7.35-7.45); LPM/O2% 3 LPM; PT. ON O2? YES; TYPE OF O2 N/C
--- NOTE | 2016-11-25 07:39 | PN ---
Physical Exam: SUBJECTIVE: Patient seen and examined by me this AM - Ostomy pink, patent. Feculent fluid draining from site - WBC elevated at 14. Plan to continue abx course per ID recs - ABG unremarkable (7.46/35/122/25). Transitioned from venti to NC for O2 support overnight. Tolerating well. - Remains tachycardic to 120s still. Will decreased IV fluids to 100cc NS - Hypophos 2.2. Repleted in AM. OBJECTIVE: Intake & Output 11/22/16 11/23/16 11/24/16 11/25/16 23:59 23:59 23:59 23:59 Intake Total 2700 4928.7 1950 Output Total 390 1165 425 Balance 2310 3763.7 1525 Weight 75.75 kg 76.3 kg 82.5 kg Vital Signs Period Temp Pulse Resp BP Sys/Campbell Pulse Ox Last 24 Hr 97.5 F-99.5 F 123-137 12-33 118-140/67-81 100-100 GENERAL: The patient awake. Mildly lethargic and non verbal due to baseline dementia. HEAD: Normal with no signs of trauma. EYES: Pupils minimally reactive to light. Sclera anicteric, conjunctiva clear. ENT: Ears normal, nares patent, oropharynx clear without exudates, moist mucous membranes. NECK: Trachea midline, full range of motion, supple. R EJ in neck. LUNGS: Breath sounds equal, clear to auscultation bilaterally, no wheezes, no crackles HEART: Tachcardiac, S1, prominent S2 without murmur, rub or gallop. ABDOMEN: Midline laparotomy incision. Ostomy site in LLQ, drainage feculent liquid/stool, pink with no erythema. No other lesions or masses. Bowel sounds hypoactive. EXTREMITIES: BL LE cool to touch. 2+ DP, PT pulses. No LE edema. SCDs. 2 P IVs, one in each hand. Neuro: Cranial nerves II-XII grossly intact. SKIN: Warm, dry, normal turgor, no rashes or lesions noted Laboratory Results - last 24 hr CBC, BMP 11/25/16 05:20 11/25/16 05:20 ABG Results ABG pH 7.46 (7.35-7.45) H 11/25/16 07:15 ABG pCO2 at Pt Temp 35.2 mmHg (35-45) D 11/25/16 07:15 ABG pO2 at Pt Temp 122.0 mmHg (80-100) H D 11/25/16 07:15 ABG HCO3 24.9 meq/L (22-26) 11/25/16 07:15 ABG O2 Sat (Measured) 99.9 % (90-98.9) H* 11/25/16 07:15 ABG O2 Content 13.7 % vol (15-22) L 11/25/16 07:15 ABG Base Excess 1.7 meq/l (-2-2) 11/25/16 07:15 11/25/16 11/25/16 11/25/16 05:20 05:20 07:15 WBC 14.1 H RBC 4.60 Hgb 10.2 L D Hct 32.2 L MCV 69.8 L MCH 22.1 L MCHC 31.6 L RDW 15.8 H Plt Count 246 MPV 8.3 Neutrophils % 81.6 Lymphocytes % 9.7 Monocytes % 7.7 Eosinophils % 0.5 D Basophils % 0.5 Anticoagulation Therapy Y Puncture Site Left radial ABG pH 7.46 H ABG pCO2 at Pt Temp 35.2 D ABG pO2 at Pt Temp 122.0 H D ABG HCO3 24.9 ABG O2 Sat (Measured) 99.9 H* ABG O2 Content 13.7 L ABG Base Excess 1.7 Chidi Test Positive O2 Delivery Device N/c Oxygen Flow Rate 3 lpm Vent Mode Y Vent Rate Y Mechanical Rate Y PEEP 0.0 Pressure Support Vent Y Sodium 143 Potassium 3.9 Chloride 110 H Carbon Dioxide 25 Anion Gap 8 BUN 5 L D Creatinine 0.4 L D Creat Clearance w eGFR > 60 Random Glucose 123 H D Calcium 7.6 L Phosphorus 2.2 L Magnesium 2.0 D Total Bilirubin 0.7 D AST 21 D ALT 16 Alkaline Phosphatase 52 Total Protein 4.2 L Albumin 1.7 L D Microbiology 11/23/16 16:30 Blood Culture - Preliminary Blood - Peripheral Venous NO GROWTH OBTAINED AFTER 24 HOURS, INCUBATION TO CONTINUE FOR 4 DAYS. 11/23/16 16:10 Blood Culture - Preliminary Blood - Peripheral Venous NO GROWTH OBTAINED AFTER 24 HOURS, INCUBATION TO CONTINUE FOR 4 DAYS. Active Medications Generic Name Dose Route Start Last Admin Trade Name Freq PRN Reason Stop Dose Admin Heparin Sodium (Porcine) 5,000 unit 11/24/16 14:00 11/24/16 21:17 Heparin - SQ 5,000 unit TID CELENA Administration Hydromorphone HCl 1 mg 11/24/16 14:32 11/24/16 17:49 Dilaudid Injection - IVPUSH 1 mg Q4H PRN Administration PAIN Pantoprazole Sodium 100 mls @ 200 mls/hr 11/24/16 10:00 11/24/16 10:38 Protonix 40mg Ivpb (Pre-Docked) IVPB 200 mls/hr DAILY CELENA Administration Metronidazole 100 mls @ 100 mls/hr 11/24/16 02:00 11/24/16 17:03 Flagyl 500mg Premixed Ivpb - IVPB 100 mls/hr Q8H-IV CELENA Administration Piperacillin Sod/Tazobactam Sod 100 mls @ 200 mls/hr 11/24/16 18:00 11/24/16 17 :50 Zosyn 4.5gm Ivpb (Pre-Docked) IVPB 200 mls/hr Q8H-IV CELENA Administration Protocol Mupirocin 1 applic 11/24/16 10:00 11/24/16 21:10 Bactroban Ointment (For Decolonization) - NS 11/29/16 09:59 1 applic BID CELENA Administration Ondansetron HCl 4 mg 11/24/16 00:37 Zofran Injection IVPB Q6H PRN NAUSEA Micro: Peritoneal, blood cultures pending CXR, Ab XR (11/23) - Notable for free air under diaphragm. CXR (11/24) - ET tube well positioned. No pneumothorax or pleural effusions. Possible trace atelectasis at LLL, retrocardiac. ASSESSMENT/PLAN: 71 yo woman w/ pmh of HTN, DM, dementia (nonverbal) transfered to ICU for post- op management following chandler's procedure for perforated sigmoid colon. Pt POD1, stable with continued elevated WBC count, afebrile. Extubated yesterday, with unremarkable f/u ABG (7.46/35/122/25). Weaned to NC in early AM off venti- mask, doing well. Pt remains persistently tachycardic to 120s, decreased IVF to 120s. Day 2 Abx course of Zosyn/flagyl per ID recs, levaquin d/c'ed, still awaiting culture results for peritoneal fluid, blood cultures. ID following. Continue to monitor sinus tachycardia and respiratory status post-extubation. #Neuro Fentanyl gtt d/c'ed Dilaudid 1mg IV PRN Monitor MS Home psych meds held #Cardiac Sinus tachycardia post-op to 120s. IVF decreased to 100cc/hr Monitor vitals. If MAP <65, bolus 1L LR Home HTN meds held #Pulm O2 support on NC. Titrate to >94% Monitor respiratory status #ID Day 2 Zosyn/flagyl per ID recs Levaquin d/c'ed Peritoneal fluid, blood cx's pending Trend WBC, fever curve Daily dressing changes #Heme Trend H/H If Hgb <7, transfuse two units pRBCs #Renal Hypophos. Repleted in AM Monitor electrolytes Daily BMPs #Endo - Monitor blood glucose q4h - f/u TSH #GI NPO Zofran 4mg IV q6h prn for nausea S&S eval in AM qshift Ostomy site checks for signs of infection/drainage/bleeding Monitor for return of bowel function via ostomy output #ppx Protonix 40mg IV Heparin subQ #FEN Fluids: LR 150ml/hr Electrolytes: Daily BMPs, monitor lytes Nutrition: NPO w/ sedation/demetia. S&S eval in AM Disposition: Will require ICU management post-op Carter Thomas, PGY1 Plan discussed with attending, Dr. Posada Visit type - Emergency Visit Emergency Visit: No - New Patient This patient is new to me today: No - Critical Care Critical Care patient: Yes Total Critical Care Time (in minutes): 35 Critical Care Statement: The care of this patient involved high complexity decision making to prevent further life threatening deterioration of the patient 's condition and/or to evaluate & treat vital organ system(s) failure or risk of failure.
--- NOTE | 2016-11-25 07:47 | PN ---
Progress Note, Physician Chief Complaint: Day 1 post op Pip Tazobactam day 1 Extubated Alert NAD - Current Medication List Current Medications: Active Medications Heparin Sodium (Porcine) (Heparin -) 5,000 unit SQ TID [facility] Last Admin: 11/24/16 21:17 Dose: 5,000 unit Hydromorphone HCl (Dilaudid Injection -) 1 mg IVPUSH Q4H PRN PRN Reason: PAIN Last Admin: 11/24/16 17:49 Dose: 1 mg Pantoprazole Sodium (Protonix 40mg Ivpb (Pre-Docked)) 100 mls @ 200 mls/hr IVPB DAILY CELENA Last Admin: 11/24/16 10:38 Dose: 200 mls/hr Metronidazole (Flagyl 500mg Premixed Ivpb -) 100 mls @ 100 mls/hr IVPB Q8H-IV CELENA Last Admin: 11/24/16 17:03 Dose: 100 mls/hr Piperacillin Sod/Tazobactam Sod (Zosyn 4.5gm Ivpb (Pre-Docked)) 100 mls @ 200 mls/hr IVPB Q8H-IV CELENA PRN Reason: Protocol Last Admin: 11/24/16 17:50 Dose: 200 mls/hr Mupirocin (Bactroban Ointment (For Decolonization) -) 1 applic NS BID [facility] Stop: 11/29/16 09:59 Last Admin: 11/24/16 21:10 Dose: 1 applic Ondansetron HCl (Zofran Injection) 4 mg IVPB Q6H PRN PRN Reason: NAUSEA - Objective Vital Signs: Vital Signs Temperature 97.5 F L 11/25/16 02:00 Pulse Rate 123 H 11/25/16 06:00 Respiratory Rate 24 11/25/16 06:00 Blood Pressure 138/81 11/25/16 06:00 O2 Sat by Pulse Oximetry (%) 100 11/24/16 21:00 Constitutional: Yes: No Distress Neck: Yes: WNL, Supple Cardiovascular: Yes: Regular Rate and Rhythm, Tachycardia, S1, S2. No: Murmur Respiratory: Yes: WNL, Regular, CTA Bilaterally, Diminished Gastrointestinal: Yes: Soft, Other (POst op dressing RIMMA drain) Labs: CBC, BMP 11/25/16 05:20 11/25/16 05:20 INR, PTT INR 1.26 (0.82-1.09) H 11/23/16 16:10 Problem List - Problems (1) Intestinal perforation Code(s): K63.1 - PERFORATION OF INTESTINE (NONTRAUMATIC) (2) Peritonitis Code(s): K65.9 - PERITONITIS, UNSPECIFIED Assessment/Plan Microbiology 11/23/16 16:30 Blood - Peripheral Venous Blood Culture - Preliminary NO GROWTH OBTAINED AFTER 24 HOURS, INCUBATION TO CONTINUE FOR 4 DAYS. 11/23/16 16:10 Blood - Peripheral Venous Blood Culture - Preliminary NO GROWTH OBTAINED AFTER 24 HOURS, INCUBATION TO CONTINUE FOR 4 DAYS. Laboratory Tests 11/25/16 11/25/16 11/25/16 05:20 05:20 07:15 WBC 14.1 H Hgb 10.2 L D Plt Count 246 ABG pH 7.46 H ABG pCO2 at Pt Temp 35.2 D ABG pO2 at Pt Temp 122.0 H D Oxygen Flow Rate 3 lpm BUN 5 L D Creat Clearance w eGFR > 60 Assessment Perforated diverticulitis Post op day 1(2) Plan Doing well post post op Same antibiotic Zosyn will provide very adequet anaerobic coverage Await peritoneal c/s COLT Colindres MD
--- NOTE | 2016-11-25 09:44 | PN ---
Progress Note (short form) - Note Progress Note: Attending Surgeon POD #2 s/p Hartmans procedure In ICU; extubated; responds to verbal commands VSS remains tachycardic; afebrile abdomen-midline wound; c/d/i; terry in place at the umbilicus; ostomy viable and starting to function; RIMMA serosanguinous; o/w negative UO improved; labs reviewed; NGT minimal IMP: s/p Hartmans POD #2 PLAN: Continue preesent tx; wound care; continue NPO/NGT/IVF/IVABS; pulmonary toilet. Harvinder Suazo MD FACS
[2016-11-25] MEDS ORDERED: SODIUM PHOSPHATE - 30 MM in SODIUM CHLORIDE 250 ML IVPB ONE (09:52)
[2016-11-25] MEDS ORDERED: POTASSIUM CHLORIDE 20 MEQ PREMIX IVPB 100 ML IVPB ONE (09:52)
[2016-11-25] MEDS ORDERED: SODIUM CHLORIDE 1,000 ML IV SCH (10:30)
--- NOTE | 2016-11-25 10:34 | OP ---
DATE OF OPERATION: 11/23/2016 PREOPERATIVE DIAGNOSIS: Perforated viscus. POSTOPERATIVE DIAGNOSIS: Perforated viscus secondary to perforated sigmoid diverticulitis. PROCEDURE: Laparotomy and Monse procedure. SURGEON: Harvinder Suazo MD CLAIMS ADMINISTRATOR: Charlotte Roger PA-C ANESTHESIA: General. OPERATIVE FINDINGS: There was perforated sigmoid diverticulitis with marked inflammatory reaction in the pelvis. There was evidence of previous surgery in the right upper quadrant from a laparoscopic cholecystectomy. The rest of the findings were unremarkable. DESCRIPTION OF PROCEDURE: The patient was placed on the operating table in supine position, and after the induction of general anesthesia, the patients abdomen was prepped with ChloraPrep and draped in sterile fashion. A time-out was taken, and a midline incision was made above and below the umbilicus. The peritoneal cavity was entered under direct vision and purulent fluid was sent for culture and sensitivity. Exploration was carried out, and the previously noted findings were observed. The small bowel was completely exteriorized, and the sigmoid colon with the previously noted findings was observed. A point of transection proximal to the perforation was identified, and a window made in the mesentery, and the colon divided using a TA stapling device. Next, the mesentery of the sigmoid was scored and serially divided using the LigaSure device down to a point past the perforation. At this point, another window was made in the mesentery, and the TA stapler fired across the distal sigmoid colon at the rectosigmoid junction. The specimen was then passed off the operative field and sent for pathological examination. Hemostasis was checked for and noted to be good, and copious irrigation was carried out with normal saline. Hemostasis was again verified. Next, an opening was made in the left lateral abdominal wall for the colostomy by excising the disc of skin and making a cruciate incision of 2 fingerbreadths within the abdominal wall. The end of the proximal colon was brought through the abdominal wall after it was further mobilized along the left lateral peritoneal reflection without the need to take down the splenic flexure. Once, there was evidence of good blood supply and no tension, copious irrigation of the abdomen was carried out again, and hemostasis verified. A 10-mm Pete-Maxwell drain was placed in the presacral space and secured to the skin with 2-0 silk sutures. The abdomen was then closed in a single layer using continuous 0 looped Maxon suture. The wound was irrigated, and the skin about the umbilicus reapproximated with surgical terry. The wound was packed with Iodoform gauze and covered with a sterile green towel, and then, the colostomy matured after the previous suture line was excised. The colostomy was sutured to the abdominal wall skin using interrupted 3-0 Vicryl sutures. A colostomy appliance was placed. Dry sterile dressing was placed over the midline wound, the drain was connected to bulb self-suction, and the procedure terminated at this point. Then, the patient was transferred to the surgical intensive care unit in stable condition, intubated. ESTIMATED BLOOD LOSS: 200 mL. REPLACEMENTS: Crystalloid and 500 mL of colloid. DRAINS: One 10-mm Pete-Maxwell. SPECIMENS: Portion of sigmoid colon to Pathology. I, Harvinder Suazo, was physically present in the operating room from the time the patient was placed on the operating table until she was transferred to the post-anesthesia care unit in my accompaniment. MD DESHAWN Manzanares/[id number]
[2016-11-25] MEDS: PANTOPRAZOLE SODIUM 100 ML IVPB SCH (10:45)
--- NOTE | 2016-11-25 10:46 | PN ---
Teaching Attending Note Name of Resident: Carter Thomas ATTENDING PHYSICIAN STATEMENT I saw and evaluated the patient. I reviewed the resident's note and discussed the case with the resident. I agree with the resident's findings and plan as documented. SUBJECTIVE: Pt seen and examined in the ICU. Extubated yesterday without incident. Remains tachycardic. Pain controlled with current regimen. Denies shortness of breath or chest pain. OBJECTIVE: Last Vital Signs Temp Pulse Resp BP Pulse Ox 97.5 F L 124 H 24 138/81 98 11/25/16 02:00 11/25/16 09:33 11/25/16 06:00 11/25/16 06:00 11/25/16 09:33 Intake & Output 11/22/16 11/23/16 11/24/16 11/25/16 23:59 23:59 23:59 23:59 Intake Total 2700 4928.7 1950 Output Total 390 1165 425 Balance 2310 3763.7 1525 Weight 167 lb 168 lb 3.403 oz 181 lb 14.102 oz Gen: NAD at rest Heart: tachycardic, regular Lung: decreased breath sounds at the bases Abd: soft, +ostomy pink, +RIMMA with serosanguinous drainage Ext: + edema CBC, BMP 11/25/16 05:20 11/25/16 05:20 Active Medications Heparin Sodium (Porcine) (Heparin -) 5,000 unit SQ TID CELENA Last Admin: 11/24/16 21:17 Dose: 5,000 unit Hydromorphone HCl (Dilaudid Injection -) 1 mg IVPUSH Q4H PRN PRN Reason: PAIN Last Admin: 11/24/16 17:49 Dose: 1 mg Pantoprazole Sodium (Protonix 40mg Ivpb (Pre-Docked)) 100 mls @ 200 mls/hr IVPB DAILY CELENA Last Admin: 11/24/16 10:38 Dose: 200 mls/hr Piperacillin Sod/Tazobactam Sod (Zosyn 4.5gm Ivpb (Pre-Docked)) 100 mls @ 200 mls/hr IVPB Q8H-IV CELENA PRN Reason: Protocol Last Admin: 11/24/16 17:50 Dose: 200 mls/hr Sodium Phosphate 30 mm/ Sodium (Chloride) 260 mls @ 43.333 mls/hr IVPB ONCE ONE Stop: 11/25/16 15:51 Sodium Chloride (Normal Saline -) 1,000 mls @ 150 mls/hr IV ASDIR CELENA Lactated Ringer's (Lactated Ringers Solution) 1,000 mls @ 100 mls/hr IV ASDIR CELENA Insulin Aspart (Novolog Vial Sliding Scale -) 1 vial SQ Q6H CELENA PRN Reason: Protocol Mupirocin (Bactroban Ointment (For Decolonization) -) 1 applic NS BID CELENA Stop: 11/29/16 09:59 Last Admin: 11/24/16 21:10 Dose: 1 applic Ondansetron HCl (Zofran Injection) 4 mg IVPB Q6H PRN PRN Reason: NAUSEA ASSESSMENT AND PLAN: Perforated Sigmoid Diverticulitis s/p ex-lap/sigmoid resection/colostomy HTN DM Hyperlipidemia Dementia - continue antibiotics - f/u OR cultures - IVF, decrease rate - monitor urine output, creatinine - pain control - incentive spirometry if able - await return of bowel function - DVT prophylaxis - continue ICU monitoring
[2016-11-25 10:47] LABS: INR 1.68 (0.82-1.09); PROTHROMBIN TIME (PATIENT) 18.7 SEC (9.98-11.88)
[2016-11-25 10:49] LABS: ACTIVATED PTT 30.4 SECONDS (26.9-34.4)
[2016-11-25] MEDS: LACTATED RINGERS SOLUTION 1,000 ML IV SCH (10:54)
[2016-11-25] MEDS: MUPIROCIN 2% TOPICAL OINTMENT FOR DECOLONIZATION NS SCH ×2 (10:54→21:53)
[2016-11-25] MEDS: PIPERACILLIN/TAZOB 4.5 GM 100 ML IVPB SCH ×3 (11:45→19:35)
[2016-11-25] MEDS: INSULIN SLIDING SCALE (NOVOLOG) 1 VIAL SQ SCH ×3 (11:46→22:05)
--- NOTE | 2016-11-25 13:50 | PATH ---
Surgical Pathology Report Patient Name: COREY PRIETO [facility]. Rec. #: [id number] /Age/Gender: 1945 (Age: 71) / F Account: [id number] Location: ICU [facility] Taken: 11/23/2016 Received: 11/24/2016 Reported: 11/25/2016 Physicians: Harvinder Suazo MD Specimen(s) Received SIGMOID COLON Clinical History Perforation of intestine (sigmoid diverticulitis) Final Diagnosis COLON, SIGMOID, RESECTION: SEGMENT OF COLON WITH EXTENSIVE DIVERTICULOSIS AND DIVERTICULITIS WITH EVIDENCE OF PERFORATION, ASSOCIATED MARKED ACUTE AND CHRONIC INFLAMMATION WITH MURAL ABSCESS FORMATION AND MARKED ACUTE SEROSITIS. NO MALIGNANCY IDENTIFIED. SURGICAL RESECTION MARGINS APPEAR VIABLE WITH FOCAL ACTIVE SEROSITIS. Electronically Signed Carmelo Donis M.D. Gross Description Received in formalin labeled "sigmoid colon" is a 15 cm in length portion of colon with 2 open mucosal margins and moderate attached fat. The serosa is horne-boyce with attached exudate at the possible rupture site. The mucosa is horne with preserved folds. No mucosal masses are identified. Sectioning reveals a focal abscess cavity. There are multiple additional diverticula identified. There is a 0.6 cm in greatest dimension palpable lymph node identified. Pull Socket Assembler sections are submitted in 14 cassettes as follows: 1-9-[id number] mucosal margins; 3-6- abscess; 5-19-pinyoccjqad; 16-11-bkyzthpact customer field representative mucosa; 14-one whole bisected lymph node. 11/24/201611/24/2016
[2016-11-25] MEDS: HEPARIN NA (PORCINE) 5,000 UNITS/ML 1ML VIAL SQ SCH ×3 (14:16→21:53)
--- NOTE | 2016-11-25 16:05 | PN ---
Teaching Attending Note Name of Resident: Minna Navas ATTENDING PHYSICIAN STATEMENT I saw and evaluated the patient. I reviewed the resident's note and discussed the case with the resident. I agree with the resident's findings and plan as documented. SUBJECTIVE: Patient is more awake, nonverbal, pulled her NG tube today. Patient in ICU extubated now. OBJECTIVE: Vital Signs Temperature 98.2 F 11/25/16 08:00 Pulse Rate 124 H 11/25/16 09:33 Respiratory Rate 27 H 11/25/16 09:00 Blood Pressure 138/85 11/25/16 08:00 O2 Sat by Pulse Oximetry (%) 98 11/25/16 09:33 CBCD WBC 14.1 K/mm3 (4.0-10.0) H 11/25/16 05:20 RBC 4.60 M/mm3 (3.60-5.2) 11/25/16 05:20 Hgb 10.2 GM/dL (10.7-15.3) L D 11/25/16 05:20 Hct 32.2 % (32.4-45.2) L 11/25/16 05:20 MCV 69.8 fl (80-96) L 11/25/16 05:20 MCHC 31.6 g/dl (32.0-36.0) L 11/25/16 05:20 RDW 15.8 % (11.6-15.6) H 11/25/16 05:20 Plt Count 246 K/MM3 (134-434) 11/25/16 05:20 MPV 8.3 fl (7.5-11.1) 11/25/16 05:20 CMP Sodium 143 mmol/L (136-145) 11/25/16 05:20 Potassium 3.9 mmol/L (3.5-5.1) 11/25/16 05:20 Chloride 110 mmol/L (98-107) H 11/25/16 05:20 Carbon Dioxide 25 mmol/L (21-32) 11/25/16 05:20 Anion Gap 8 (8-16) 11/25/16 05:20 BUN 5 mg/dL (7-18) L D 11/25/16 05:20 Creatinine 0.4 mg/dL (0.55-1.02) L D 11/25/16 05:20 Creat Clearance w eGFR > 60 (>60) 11/25/16 05:20 Random Glucose 123 mg/dL (74-106) H D 11/25/16 05:20 Calcium 7.6 mg/dL (8.5-10.1) L 11/25/16 05:20 Total Bilirubin 0.7 mg/dL (0.2-1.0) D 11/25/16 05:20 AST 21 U/L (15-37) D 11/25/16 05:20 ALT 16 U/L (12-78) 11/25/16 05:20 Alkaline Phosphatase 52 U/L (45-117) 11/25/16 05:20 Total Protein 4.2 g/dl (6.4-8.2) L 11/25/16 05:20 Albumin 1.7 g/dl (3.4-5.0) L D 11/25/16 05:20 Current Medications Generic Name Dose Route Start Last Admin Trade Name Freq PRN Reason Stop Dose Admin Heparin Sodium (Porcine) 5,000 unit 11/24/16 14:00 11/25/16 14:16 Heparin - SQ 5,000 unit TID CELENA Administration Hydromorphone HCl 1 mg 11/24/16 14:32 11/24/16 17:49 Dilaudid Injection - IVPUSH 1 mg Q4H PRN Administration PAIN Pantoprazole Sodium 100 mls @ 200 mls/hr 11/24/16 10:00 11/25/16 10:45 Protonix 40mg Ivpb (Pre-Docked) IVPB 200 mls/hr DAILY CELENA Administration Piperacillin Sod/Tazobactam Sod 100 mls @ 200 mls/hr 11/24/16 18:00 11/25/16 11 :45 Zosyn 4.5gm Ivpb (Pre-Docked) IVPB 200 mls/hr Q8H-IV CELENA Administration Protocol Lactated Ringer's 1,000 mls @ 100 mls/hr 11/25/16 10:45 11/25/16 10:54 Lactated Ringers Solution IV 100 mls/hr ASDIR CELENA Administration Insulin Aspart 1 vial 11/25/16 10:45 11/25/16 11:46 Novolog Vial Sliding Scale - SQ Not Given Q6H CELENA Protocol Mupirocin 1 applic 11/24/16 10:00 11/25/16 10:54 Bactroban Ointment (For Decolonization) - NS 11/29/16 09:59 1 applic BID CELENA Administration Ondansetron HCl 4 mg 11/24/16 00:37 Zofran Injection IVPB Q6H PRN NAUSEA Home Medications Medication Instructions Recorded Amlodipine Besylate [Norvasc] 5 mg PO DAILY 01/12/12 Famotidine [Pepcid] 20 mg PO BID #20 tablet 04/07/12 Pantoprazole Sodium [Protonix] 40 mg PO ONCE #20 tablet.ec 12/19/12 Amlodipine Besylate [Norvasc -] 5 mg PO DAILY #0 tablet 12/27/12 Aripiprazole [Abilify -] 5 mg PO DAILY #0 tablet 12/27/12 Citalopram Hydrobromide [Celexa -] 20 mg PO DAILY #0 tablet 12/27/12 Docusate Sodium [Colace -] 100 mg PO BID #20 capsule 12/27/12 Donepezil HCl [Aricept -] 5 mg PO DAILY #0 tablet 12/27/12 Mag Hydrox/Al Hydrox/Simeth 30 ml PO Q6H PRN #0 cup 12/27/12 [Mylanta Oral Suspension -] Metoclopramide HCl [Reglan -] 5 mg PO TID #0 tablet 12/27/12 Pantoprazole Sodium [Protonix -] 40 mg PO DAILY #0 tablet.ec 12/27/12 Abd.XR (11/23) - reported positive for Free air under diaphragm. CXR (11/24) - ET tube well positioned. No pneumothorax or pleural effusions. Possible trace atelectasis at LLL. PE: extubated, on NC now. No NG-tube . Heart:Tachy to 120's now ,[id number] Abdomen: positive for Osteomy site clean, positive for RIMMA drainage of serasanguineous fluid rest of PE per resident's notes. ASSESSMENT AND PLAN: Patient is a 71 yo F from [facility] with significant PMHx of HTN, DM, dementia , hyperlipidemia, and hypercholesterolemia, who presents to the ER for free air under the diaphragm that was seen on outpatient xray. Family functioning as historian as she is nonverbal # POD# 2 s/p exploratory laparotomy for sigmoid perforation; On IV antibiotic to continue on Zosyn as per ID waiting for Peritoneal fluid cx's pending.. # Acute respiratory failure s/p Surgery s/p extubation today. #Hx of Dementia hold for po meds for now, patient is extubated now, still NPO, patient pulled the NG tube. NG tube with minimal drainage today. As per surgeon not to reinsert the NG tube. # Diabetes type 2, controlled, sc with coverage # Hx Hyperlipemia hold po meds for now. DVT ppx: Hep SQ GI Px: IV protonix
--- NOTE | 2016-11-25 17:43 | PN ---
Physical Exam: SUBJECTIVE: Patient seen and examined. POD 2 s/p chandler's procedure. Patient was extubated yesterday, tolerating intranasal O2 well. Has been Patient is tachycardic. NGT was draining minimally. Overnight, colostomy tube started to function. RIMMA tube drained more overnight than this morning when I saw. Later in the day, the son was at the bedside and let us know the patient had pulled out the NGT by herself. NGT tube was draining minimally prior to that. OBJECTIVE: Selected Entries 11/25/16 11/25/16 11/25/16 12:00 14:00 16:00 Pulse Rate 124 H 120 H 123 H Vital Signs Period Temp Pulse Resp BP Sys/Campbell Pulse Ox Last 24 Hr 97.5 F-98.5 F 120-133 23-33 119-146/66-93 98-100 Laboratory Tests 11/24/16 11/24/16 11/25/16 02:20 05:00 05:20 Random Glucose 188 H D 198 H 123 H D GENERAL: The patient drowsy with spontaneous eye opening, in no acute distress. On intranasal Oxygen. LUNGS: Breath sounds equal, clear to auscultation bilaterally, no wheezes, no crackles, no accessory muscle use. HEART: Regular rate and rhythm, S1, S2 tachycardic. ABDOMEN: Drain in place on R, draining sanguinous fluid, Midline dressing substernal to suprapubic area, colostomy bag on L with feces bowel bowel sounds present, EXTREMITIES: no edema, pneumatic compress on. NEUROLOGICAL: Drowsy, but arousable Laboratory Tests 11/25/16 09:45 INR 1.68 H D PTT (Actin FS) 30.4 Laboratory Tests 11/24/16 11/25/16 05:00 05:20 Albumin 2.2 L 1.7 L D Laboratory Results - last 24 hr 11/25/16 11/25/16 11/25/16 05:20 05:20 07:15 WBC 14.1 H RBC 4.60 Hgb 10.2 L D Hct 32.2 L MCV 69.8 L MCH 22.1 L MCHC 31.6 L RDW 15.8 H Plt Count 246 MPV 8.3 Neutrophils % 81.6 Lymphocytes % 9.7 Monocytes % 7.7 Eosinophils % 0.5 D Basophils % 0.5 INR PTT (Actin FS) Anticoagulation Therapy Y Puncture Site Left radial ABG pH 7.46 H ABG pCO2 at Pt Temp 35.2 D ABG pO2 at Pt Temp 122.0 H D ABG HCO3 24.9 ABG O2 Sat (Measured) 99.9 H* ABG O2 Content 13.7 L ABG Base Excess 1.7 Chidi Test Positive O2 Delivery Device N/c Oxygen Flow Rate 3 lpm Vent Mode Y Vent Rate Y Mechanical Rate Y PEEP 0.0 Pressure Support Vent Y Sodium 143 Potassium 3.9 Chloride 110 H Carbon Dioxide 25 Anion Gap 8 BUN 5 L D Creatinine 0.4 L D Creat Clearance w eGFR > 60 Random Glucose 123 H D Calcium 7.6 L Phosphorus 2.2 L Magnesium 2.0 D Total Bilirubin 0.7 D AST 21 D ALT 16 Alkaline Phosphatase 52 Total Protein 4.2 L Albumin 1.7 L D 11/25/16 09:45 WBC RBC Hgb Hct MCV MCH MCHC RDW Plt Count MPV Neutrophils % Lymphocytes % Monocytes % Eosinophils % Basophils % INR 1.68 H D PTT (Actin FS) 30.4 Anticoagulation Therapy Puncture Site ABG pH ABG pCO2 at Pt Temp ABG pO2 at Pt Temp ABG HCO3 ABG O2 Sat (Measured) ABG O2 Content ABG Base Excess Chidi Test O2 Delivery Device Oxygen Flow Rate Vent Mode Vent Rate Mechanical Rate PEEP Pressure Support Vent Sodium Potassium Chloride Carbon Dioxide Anion Gap BUN Creatinine Creat Clearance w eGFR Random Glucose Calcium Phosphorus Magnesium Total Bilirubin AST ALT Alkaline Phosphatase Total Protein Albumin Active Medications Generic Name Dose Route Start Last Admin Trade Name Freq PRN Reason Stop Dose Admin Heparin Sodium (Porcine) 5,000 unit 11/24/16 14:00 11/25/16 14:16 Heparin - SQ 5,000 unit TID CELENA Administration Hydromorphone HCl 1 mg 11/24/16 14:32 11/24/16 17:49 Dilaudid Injection - IVPUSH 1 mg Q4H PRN Administration PAIN Pantoprazole Sodium 100 mls @ 200 mls/hr 11/24/16 10:00 11/25/16 10:45 Protonix 40mg Ivpb (Pre-Docked) IVPB 200 mls/hr DAILY CELENA Administration Piperacillin Sod/Tazobactam Sod 100 mls @ 200 mls/hr 11/24/16 18:00 11/25/16 11 :45 Zosyn 4.5gm Ivpb (Pre-Docked) IVPB 200 mls/hr Q8H-IV CELENA Administration Protocol Lactated Ringer's 1,000 mls @ 100 mls/hr 11/25/16 10:45 11/25/16 10:54 Lactated Ringers Solution IV 100 mls/hr ASDIR CELENA Administration Insulin Aspart 1 vial 11/25/16 10:45 11/25/16 16:55 Novolog Vial Sliding Scale - SQ Not Given Q6H CELENA Protocol Mupirocin 1 applic 11/24/16 10:00 11/25/16 10:54 Bactroban Ointment (For Decolonization) - NS 11/29/16 09:59 1 applic BID CELENA Administration Ondansetron HCl 4 mg 11/24/16 00:37 Zofran Injection IVPB Q6H PRN NAUSEA ASSESSMENT/PLAN: 71 year old nonverbal woman from [facility] with significant PMHx of HTN, DM, dementia, hyperlipidemia, and hypercholesterolemia admitted yesterday for perforated bowel, had emergent laparotomy with with sigmoid resection/ colostomy for perforated sigmoid colon. POD2 s/p Chandler's procedure. #Perforated bowel: POD2 s/p Chandler's procedure Extubated- on NC- sating well NGT not in place Still NPO iv antibiotics- metronidazole and zosyn continued On i.v. Lactated Ringers -100mls/hr fentanyl and iv acetaminophen for pain mupirocin ointment for decolonization Peritoneal fluid culture- pending final culture results-gram stain negative -Postop wound mx per surgeons Incentive spirometry -critical care mx in ICU Per Surgeons- NGT tube will not be reinserted #Tachycardia Inadequate Is and Os in the morning, R/O dehydration Continue Iv Fluids-On i.v. Lactated Ringers -100mls/hr Monitor MI # Hypoalbuminemia: Albumin given overnight Still low - 1.7 from 2.2 yesterday Consider albumin #DM- Hyperglycemic, NPO Insulin aspart (novolog)- sliding scale iv subQ Q6H #dementia intubated holding PO meds #hyperlipidemia intubated holding PO meds #hypercholesterolemia; intubated holding PO meds #HTN-Amlodipine -on outpatient basis, intubated holding PO meds #FEN: On i.v. Lactated Ringers -100mls/hr CMP, Mg, P, Ca NPO s/p laparotomy #Prophylaxis DVT: SubQ heparin GI: IV protonix Postop:Incentive spirometry Problem List - Problems (1) Intestinal perforation Code(s): K63.1 - PERFORATION OF INTESTINE (NONTRAUMATIC) (2) Peritonitis Code(s): K65.9 - PERITONITIS, UNSPECIFIED (3) Diabetes Code(s): E11.9 - TYPE 2 DIABETES MELLITUS WITHOUT COMPLICATIONS Qualifiers: Diabetes mellitus type: type 2 Visit type - Emergency Visit Emergency Visit: Yes ED Registration Date: 11/23/16 Care time: The patient presented to the Emergency Department on the above date and was hospitalized for further evaluation of their emergent condition. - New Patient This patient is new to me today: No - Critical Care Critical Care patient: Yes Total Critical Care Time (in minutes): 45 Critical Care Statement: The care of this patient involved high complexity decision making to prevent further life threatening deterioration of the patient 's condition and/or to evaluate & treat vital organ system(s) failure or risk of failure.
[2016-11-25] MEDS: METRONIDAZOLE 500 MG PREMIXED 100 ML IVPB SCH (19:28)
[2016-11-25] MEDS: HYDROmorphone HCL CARPU-JECT 1 MG/1 ML DISP.SYRIN IVPUSH PRN (19:30)
[2016-11-26] MEDS: PIPERACILLIN/TAZOB 4.5 GM 100 ML IVPB SCH ×3 (01:37→17:13)
[2016-11-26] MEDS: INSULIN SLIDING SCALE (NOVOLOG) 1 VIAL SQ SCH ×4 (06:37→23:48)
[2016-11-26] MEDS: HEPARIN NA (PORCINE) 5,000 UNITS/ML 1ML VIAL SQ SCH ×3 (06:40→23:42)
--- NOTE | 2016-11-26 07:04 | PN ---
Progress Note, Physician Chief Complaint: ID Post op day 2 followup in ICU after lap Zheng procedure for diverticulitis Patient in no distress Alert No complaints Mental status dementia at baseline - Current Medication List Current Medications: Active Medications Heparin Sodium (Porcine) (Heparin -) 5,000 unit SQ TID CELENA Last Admin: 11/26/16 06:40 Dose: 5,000 unit Hydromorphone HCl (Dilaudid Injection -) 1 mg IVPUSH Q4H PRN PRN Reason: PAIN Last Admin: 11/25/16 19:30 Dose: 1 mg Pantoprazole Sodium (Protonix 40mg Ivpb (Pre-Docked)) 100 mls @ 200 mls/hr IVPB DAILY [facility] Last Admin: 11/25/16 10:45 Dose: 200 mls/hr Piperacillin Sod/Tazobactam Sod (Zosyn 4.5gm Ivpb (Pre-Docked)) 100 mls @ 200 mls/hr IVPB Q8H-IV CELENA PRN Reason: Protocol Last Admin: 11/26/16 01:37 Dose: 200 mls/hr Lactated Ringer's (Lactated Ringers Solution) 1,000 mls @ 100 mls/hr IV ASDIR [facility] Last Admin: 11/25/16 10:54 Dose: 100 mls/hr Insulin Aspart (Novolog Vial Sliding Scale -) 1 vial SQ Q6H CELENA PRN Reason: Protocol Last Admin: 11/26/16 06:37 Dose: Not Given Mupirocin (Bactroban Ointment (For Decolonization) -) 1 applic NS BID [facility] Stop: 11/29/16 09:59 Last Admin: 11/25/16 21:53 Dose: 1 applic Ondansetron HCl (Zofran Injection) 4 mg IVPB Q6H PRN PRN Reason: NAUSEA - Objective Vital Signs: Vital Signs Temperature 98.5 F 11/26/16 02:00 Pulse Rate 113 H 11/26/16 06:00 Respiratory Rate 28 H 11/26/16 06:00 Blood Pressure 145/79 11/26/16 06:00 O2 Sat by Pulse Oximetry (%) 98 11/25/16 21:00 Constitutional: Yes: Well Nourished, No Distress Eyes: Yes: WNL, Conjunctiva Clear HENT: Yes: WNL, Atraumatic Neck: Yes: WNL, Supple, Trachea Midline Cardiovascular: Yes: Tachycardia, S1, S2. No: Murmur, Rub Respiratory: Yes: WNL, Regular, CTA Bilaterally. No: Rales, Rhonchi Gastrointestinal: Yes: Soft, Other (midline incision RIMMA drain). No: Tenderness Edema: No Labs: CBC, BMP 11/25/16 05:20 11/25/16 05:20 INR, PTT INR 1.68 (0.82-1.09) H D 11/25/16 09:45 Problem List - Problems (1) Intestinal perforation Code(s): K63.1 - PERFORATION OF INTESTINE (NONTRAUMATIC) (2) Peritonitis Code(s): K65.9 - PERITONITIS, UNSPECIFIED Assessment/Plan Microbiology 11/24/16 01:00 Peritoneal Fluid Gram Stain - Final 11/24/16 01:00 Peritoneal Fluid Body Fluid Culture - Preliminary 11/23/16 16:30 Blood - Peripheral Venous Blood Culture - Preliminary NO GROWTH OBTAINED AFTER 48 HOURS, INCUBATION TO CONTINUE FOR 3 DAYS. 11/23/16 16:10 Blood - Peripheral Venous Blood Culture - Preliminary NO GROWTH OBTAINED AFTER 48 HOURS, INCUBATION TO CONTINUE FOR 3 DAYS. Laboratory Tests 11/25/16 05:20 WBC 14.1 H Hgb 10.2 L D Hct 32.2 L Plt Count 246 Assessment Perforated viscus with peritonitis polymicrobial gram stain as might be expected included yeast Sinus tacycardia post op Extubated alsready 2 days Diabetes Dementia Plan Continue Piperacillin tazobactam Addition of Fluconazole for fungal coverage Await final c/s RPR Critical care time spent 38 minutes reviewing chart examining and creating plan Bernadine RASCON
--- NOTE | 2016-11-26 07:45 | PN ---
Progress Note (short form) - Note Progress Note: Attending Surgeon POD #3 s/p Hartmans procedure for perforated sigmoid diverticulitis Awake in ICU;baseline mental status for her dementia; pulled out her NGT yesterday; no vomiting abdomen-soft; slightly distended; stool and some air in the ostomy bag; ostomy viable; drain serosanguinous; wound care in progress UO good; drain minimal AM labs pending IMP: stable post op day #3 s/p Hartmans procedure PLAN: Continue present tx.; keep FC for I/O; OOB; keep NPO for now; f/u labs. Harvinder Suazo MD FACS
[2016-11-26] MEDS ORDERED: PT OWN MED DRAWER 7, Y5N ONE ×2 (09:08→09:31)
--- NOTE | 2016-11-26 09:42 | PN ---
Progress Note (short form) - Note Progress Note: PULMONARY/CCM Pt seen and examined in the ICU. Pain controlled with current regimen. No fevers recorded. Denies shortness of breath or chest pain. Last Vital Signs Temp Pulse Resp BP Pulse Ox 98.5 F 113 H 28 H 145/79 98 11/26/16 02:00 11/26/16 06:00 11/26/16 06:00 11/26/16 06:00 11/25/16 21:00 Intake & Output 11/23/16 11/24/16 11/25/16 11/26/16 23:59 23:59 23:59 23:59 Intake Total 2700 4928.7 3600 1300 Output Total 390 1165 1445 610 Balance 2310 3763.7 2155 690 Weight 167 lb 168 lb 3.403 oz 181 lb 14.102 oz 176 lb 1.6 oz Gen: NAD at rest Heart: tachycardic, regular Lung: decreased breath sounds at the bases Abd: soft, +ostomy with output, +RIMMA with minimal output Ext: no edema CBC, BMP 11/25/16 05:20 11/25/16 05:20 Active Medications Heparin Sodium (Porcine) (Heparin -) 5,000 unit SQ TID [facility] Last Admin: 11/26/16 06:40 Dose: 5,000 unit Hydromorphone HCl (Dilaudid Injection -) 1 mg IVPUSH Q4H PRN PRN Reason: PAIN Last Admin: 11/25/16 19:30 Dose: 1 mg Pantoprazole Sodium (Protonix 40mg Ivpb (Pre-Docked)) 100 mls @ 200 mls/hr IVPB DAILY [facility] Last Admin: 11/25/16 10:45 Dose: 200 mls/hr Piperacillin Sod/Tazobactam Sod (Zosyn 4.5gm Ivpb (Pre-Docked)) 100 mls @ 200 mls/hr IVPB Q8H-IV CELENA PRN Reason: Protocol Last Admin: 11/26/16 01:37 Dose: 200 mls/hr Lactated Ringer's (Lactated Ringers Solution) 1,000 mls @ 100 mls/hr IV ASDIR [facility] Last Admin: 11/25/16 10:54 Dose: 100 mls/hr Fluconazole (Diflucan 400 Mg/Ns Premixed Ivpb -) 200 mls @ 200 mls/hr IVPB DAILY [facility] Insulin Aspart (Novolog Vial Sliding Scale -) 1 vial SQ Q6H CELENA PRN Reason: Protocol Last Admin: 11/26/16 06:37 Dose: Not Given Mupirocin (Bactroban Ointment (For Decolonization) -) 1 applic NS BID CELENA Stop: 11/29/16 09:59 Last Admin: 11/25/16 21:53 Dose: 1 applic Ondansetron HCl (Zofran Injection) 4 mg IVPB Q6H PRN PRN Reason: NAUSEA A/P Perforated Sigmoid Diverticulitis s/p ex-lap/sigmoid resection/colostomy HTN DM Hyperlipidemia Dementia - continue antibiotics - f/u OR cultures - IVF - monitor urine output, creatinine - pain control - incentive spirometry if able - await return of bowel function - OOB to chair - DVT prophylaxis - can transfer to floor when ok with surgery
[2016-11-26] MEDS: PANTOPRAZOLE SODIUM 100 ML IVPB SCH (09:53)
[2016-11-26] MEDS: LACTATED RINGERS SOLUTION 1,000 ML IV SCH (09:53)
[2016-11-26] MEDS: MUPIROCIN 2% TOPICAL OINTMENT FOR DECOLONIZATION NS SCH ×2 (09:54→23:42)
[2016-11-26] MEDS ORDERED: FLUCONAZOLE 400 MG/D5W 200 ML IVPB SCH (10:00)
[2016-11-26] MEDS: FLUCONAZOLE 400 MG/NS 200 ML IVPB SCH (10:42)
--- NOTE | 2016-11-26 10:52 | PN ---
Physical Exam: SUBJECTIVE: Patient seen and examined Patient is feeling better today, smiling, making conversation. Looks happy. OBJECTIVE: Vital Signs Temperature 98.5 F 11/26/16 02:00 Pulse Rate 113 H 11/26/16 06:00 Respiratory Rate 28 H 11/26/16 06:00 Blood Pressure 145/79 11/26/16 06:00 O2 Sat by Pulse Oximetry (%) 98 11/25/16 21:00 GENERAL: The patient is awake, alert,in no acute distress. HEAD: Normal with no signs of trauma. EYES: PERRL, extraocular movements intact, sclera anicteric, conjunctiva clear. ENT: Ears normal, oropharynx clear without exudates, moist mucous membranes. NECK: Trachea midline, full range of motion, supple. LUNGS: extubated, saturating 98% now, clear to auscultation bilaterally, no wheezes, no crackles, no accessory muscle use. HEART: tachycardic improving, S1, S2 without murmur, rub or gallop. ABDOMEN: positive for Osteomy bag positive for stool now ,positive for RIMMA drainage of serasanguineous fluid, around 10cc. EXTREMITIES: 2+ pulses, warm, well-perfused, no edema. NEUROLOGICAL: Cranial nerves II through XII grossly intact. Normal speech, gait not observed. PSYCH: Normal mood, normal affect. SKIN: Warm, dry, normal turgor, no rashes or lesions noted Laboratory Results - last 24 hr 11/25/16 11/25/16 11/25/16 09:45 11:19 16:54 INR 1.68 H D PTT (Actin FS) 30.4 POC Glucometer 164.12409 132.02349 TSH 11/25/16 11/26/16 22:04 05:38 INR PTT (Actin FS) POC Glucometer 140.69790 TSH 1.75 CBCD WBC 14.1 K/mm3 (4.0-10.0) H 11/25/16 05:20 RBC 4.60 M/mm3 (3.60-5.2) 11/25/16 05:20 Hgb 10.2 GM/dL (10.7-15.3) L D 11/25/16 05:20 Hct 32.2 % (32.4-45.2) L 11/25/16 05:20 MCV 69.8 fl (80-96) L 11/25/16 05:20 MCHC 31.6 g/dl (32.0-36.0) L 11/25/16 05:20 RDW 15.8 % (11.6-15.6) H 11/25/16 05:20 Plt Count 246 K/MM3 (134-434) 11/25/16 05:20 MPV 8.3 fl (7.5-11.1) 11/25/16 05:20 CMP Sodium 143 mmol/L (136-145) 11/25/16 05:20 Potassium 3.9 mmol/L (3.5-5.1) 11/25/16 05:20 Chloride 110 mmol/L (98-107) H 11/25/16 05:20 Carbon Dioxide 25 mmol/L (21-32) 11/25/16 05:20 Anion Gap 8 (8-16) 11/25/16 05:20 BUN 5 mg/dL (7-18) L D 11/25/16 05:20 Creatinine 0.4 mg/dL (0.55-1.02) L D 11/25/16 05:20 Creat Clearance w eGFR > 60 (>60) 11/25/16 05:20 Random Glucose 123 mg/dL (74-106) H D 11/25/16 05:20 Calcium 7.6 mg/dL (8.5-10.1) L 11/25/16 05:20 Total Bilirubin 0.7 mg/dL (0.2-1.0) D 11/25/16 05:20 AST 21 U/L (15-37) D 11/25/16 05:20 ALT 16 U/L (12-78) 11/25/16 05:20 Alkaline Phosphatase 52 U/L (45-117) 11/25/16 05:20 Total Protein 4.2 g/dl (6.4-8.2) L 11/25/16 05:20 Albumin 1.7 g/dl (3.4-5.0) L D 11/25/16 05:20 Microbiology 11/24/16 01:00 Peritoneal Fluid Gram Stain - Final 11/24/16 01:00 Peritoneal Fluid Body Fluid Culture - Preliminary 11/23/16 16:30 Blood - Peripheral Venous Blood Culture - Preliminary NO GROWTH OBTAINED AFTER 48 HOURS, INCUBATION TO CONTINUE FOR 3 DAYS. 08/30/17 16:10 Blood - Peripheral Venous Blood Culture - Preliminary NO GROWTH OBTAINED AFTER 48 HOURS, INCUBATION TO CONTINUE FOR 3 DAYS. Active Medications Generic Name Dose Route Start Last Admin Trade Name Freq PRN Reason Stop Dose Admin Heparin Sodium (Porcine) 5,000 unit 11/24/16 14:00 11/26/16 06:40 Heparin - SQ 5,000 unit TID CELENA Administration Hydromorphone HCl 1 mg 11/24/16 14:32 11/25/16 19:30 Dilaudid Injection - IVPUSH 1 mg Q4H PRN Administration PAIN Pantoprazole Sodium 100 mls @ 200 mls/hr 11/24/16 10:00 11/26/16 09:53 Protonix 40mg Ivpb (Pre-Docked) IVPB 200 mls/hr DAILY CELENA Administration Piperacillin Sod/Tazobactam Sod 100 mls @ 200 mls/hr 11/24/16 18:00 11/26/16 09 :53 Zosyn 4.5gm Ivpb (Pre-Docked) IVPB 200 mls/hr Q8H-IV CELENA Administration Protocol Lactated Ringer's 1,000 mls @ 100 mls/hr 11/25/16 10:45 11/26/16 09:53 Lactated Ringers Solution IV 100 mls/hr ASDIR CELENA Administration Fluconazole 200 mls @ 200 mls/hr 11/26/16 10:00 Diflucan 400 Mg/Ns Premixed Ivpb - IVPB DAILY CELENA Insulin Aspart 1 vial 11/25/16 10:45 11/26/16 06:37 Novolog Vial Sliding Scale - SQ Not Given Q6H [facility] Protocol Mupirocin 1 applic 11/24/16 10:00 11/26/16 09:54 Bactroban Ointment (For Decolonization) - NS 11/29/16 09:59 1 applic BID CELENA Administration Ondansetron HCl 4 mg 11/24/16 00:37 Zofran Injection IVPB Q6H PRN NAUSEA Home Medications Medication Instructions Recorded Amlodipine Besylate [Norvasc] 5 mg PO DAILY 01/12/12 Famotidine [Pepcid] 20 mg PO BID #20 tablet 04/07/12 Pantoprazole Sodium [Protonix] 40 mg PO ONCE #20 tablet.ec 12/19/12 Amlodipine Besylate [Norvasc -] 5 mg PO DAILY #0 tablet 12/27/12 Aripiprazole [Abilify -] 5 mg PO DAILY #0 tablet 12/27/12 Citalopram Hydrobromide [Celexa -] 20 mg PO DAILY #0 tablet 12/27/12 Docusate Sodium [Colace -] 100 mg PO BID #20 capsule 12/27/12 Donepezil HCl [Aricept -] 5 mg PO DAILY #0 tablet 12/27/12 Mag Hydrox/Al Hydrox/Simeth 30 ml PO Q6H PRN #0 cup 12/27/12 [Mylanta Oral Suspension -] Metoclopramide HCl [Reglan -] 5 mg PO TID #0 tablet 12/27/12 Pantoprazole Sodium [Protonix -] 40 mg PO DAILY #0 tablet.ec 12/27/12 Microbiology 11/24/16 01:00 Peritoneal Fluid Gram Stain - Final 11/24/16 01:00 Peritoneal Fluid Body Fluid Culture - Preliminary 11/23/16 16:30 Blood - Peripheral Venous Blood Culture - Preliminary NO GROWTH OBTAINED AFTER 48 HOURS, INCUBATION TO CONTINUE FOR 3 DAYS. 11/23/16 16:10 Blood - Peripheral Venous Blood Culture - Preliminary NO GROWTH OBTAINED AFTER 48 HOURS, INCUBATION TO CONTINUE FOR 3 DAYS. Abd.XR (11/23) - reported positive for Free air under diaphragm. CXR (11/24) - ET tube well positioned. No pneumothorax or pleural effusions. Possible trace atelectasis at [facility]. ASSESSMENT AND PLAN: Patient is a 71 yo F from [facility] with significant PMHx of HTN, DM, dementia , hyperlipidemia, and hypercholesterolemia, who presents to the ER for free air under the diaphragm that was seen on outpatient xray. Family functioning as historian as she is nonverbal # POD# 3 s/p exploratory laparotomy for sigmoid perforation; Bx report positive for diverticulitis and diverticulosis , On IV antibiotic ,Zosyn , added Diflucan IV as per ID. due to Peritoneal fluid reporting yeast like cells . check cx # Acute respiratory failure s/p Surgery s/p extubation today., off oxygen now, saturating well. #Hx of Dementia hold for po meds for now, patient is extubated now, still NPO, patient pulled the NG tube yesterday . As per surgeon not to reinsert the NG tube. # Diabetes type 2, controlled, sc with coverage # Hx Hyperlipemia hold po meds for now. DVT ppx: Hep SQ GI Px: IV protonix Visit type - Emergency Visit Emergency Visit: Yes ED Registration Date: 11/23/16 Care time: The patient presented to the Emergency Department on the above date and was hospitalized for further evaluation of their emergent condition. - New Patient This patient is new to me today: No - Critical Care Critical Care patient: No
[2016-11-27] MEDS: PIPERACILLIN/TAZOB 4.5 GM 100 ML IVPB SCH ×3 (01:55→17:05)
[2016-11-27] MEDS: INSULIN SLIDING SCALE (NOVOLOG) 1 VIAL SQ SCH ×4 (05:24→23:33)
[2016-11-27 06:43] LABS: BASOPHIL 0.5 % (0-2.0); EOSINOPHIL 1.8 % (0-4.5); MCHC 31.9 g/dl (32.0-36.0); MEAN PLT VOLUME 8.2 fl (7.5-11.1); NEUTROPHILS 78.4 % (42.8-82.8); PLATELET COUNT 285 K/MM3 (134-434); RDW 15.1 % (11.6-15.6); WHITE BLOOD COUNT 12.4 K/mm3 (4.0-10.0)
[2016-11-27] MEDS: HEPARIN NA (PORCINE) 5,000 UNITS/ML 1ML VIAL SQ SCH ×3 (06:56→21:39)
--- NOTE | 2016-11-27 07:00 | PN ---
Progress Note, Physician Chief Complaint: ID Stable over night Post op day 3 Pip Tazo & Fluconazole - Current Medication List Current Medications: Active Medications Heparin Sodium (Porcine) (Heparin -) 5,000 unit SQ TID [facility] Last Admin: 11/26/16 23:42 Dose: 5,000 unit Hydromorphone HCl (Dilaudid Injection -) 1 mg IVPUSH Q4H PRN PRN Reason: PAIN Last Admin: 11/25/16 19:30 Dose: 1 mg Pantoprazole Sodium (Protonix 40mg Ivpb (Pre-Docked)) 100 mls @ 200 mls/hr IVPB DAILY [facility] Last Admin: 11/26/16 09:53 Dose: 200 mls/hr Piperacillin Sod/Tazobactam Sod (Zosyn 4.5gm Ivpb (Pre-Docked)) 100 mls @ 200 mls/hr IVPB Q8H-IV CELENA PRN Reason: Protocol Last Admin: 11/26/16 17:13 Dose: 200 mls/hr Lactated Ringer's (Lactated Ringers Solution) 1,000 mls @ 100 mls/hr IV ASDIR [facility] Last Admin: 11/26/16 09:53 Dose: 100 mls/hr Fluconazole (Diflucan 400 Mg/Ns Premixed Ivpb -) 200 mls @ 200 mls/hr IVPB DAILY [facility] Last Admin: 11/26/16 10:42 Dose: 200 mls/hr Insulin Aspart (Novolog Vial Sliding Scale -) 1 vial SQ Q6H CELENA PRN Reason: Protocol Last Admin: 11/27/16 05:24 Dose: Not Given Mupirocin (Bactroban Ointment (For Decolonization) -) 1 applic NS BID [facility] Stop: 11/29/16 09:59 Last Admin: 11/26/16 23:42 Dose: 1 applic Ondansetron HCl (Zofran Injection) 4 mg IVPB Q6H PRN PRN Reason: NAUSEA - Objective Vital Signs: Vital Signs Temperature 100.1 F H 11/27/16 06:00 Pulse Rate 107 H 11/27/16 06:00 Respiratory Rate 22 11/27/16 06:00 Blood Pressure 155/88 11/27/16 06:00 O2 Sat by Pulse Oximetry (%) 96 11/26/16 21:00 Constitutional: Yes: Well Nourished, No Distress Neck: Yes: WNL, Supple Cardiovascular: Yes: Regular Rate and Rhythm, S1, S2 Respiratory: Yes: WNL, Regular, CTA Bilaterally Gastrointestinal: Yes: Soft, Other (Colostomy RIMMA drain) Labs: CBC, BMP 11/27/16 05:35 INR, PTT INR 1.68 (0.82-1.09) H D 11/25/16 09:45 Problem List - Problems (1) Intestinal perforation Code(s): K63.1 - PERFORATION OF INTESTINE (NONTRAUMATIC) (2) Peritonitis Code(s): K65.9 - PERITONITIS, UNSPECIFIED Assessment/Plan Microbiology 11/23/16 16:30 Blood - Peripheral Venous Blood Culture - Preliminary NO GROWTH OBTAINED AFTER 72 HOURS, INCUBATION TO CONTINUE FOR 2 DAYS. 11/23/16 16:10 Blood - Peripheral Venous Blood Culture - Preliminary NO GROWTH OBTAINED AFTER 72 HOURS, INCUBATION TO CONTINUE FOR 2 DAYS. Laboratory Tests 11/27/16 05:35 WBC 12.4 H Hgb 8.9 L D Plt Count 285 Assessment Perforated viscus poly microbial c/s ( yeast seen on stain) fluconazole added Doing well Plan Continue current antibiotics as ordered Bernadine RASCON
[2016-11-27 07:42] LABS: ALBUMIN 1.8 g/dl (3.4-5.0); ANION GAP 12 (8-16); CALCIUM 7.2 mg/dL (8.5-10.1); CO2 29 mmol/L (21-32); GLUCOSE,RANDOM 99 mg/dL (74-106); MAGNESIUM 1.8 mg/dL (1.8-2.4)
[2016-11-27 07:45] LABS: ALK PHOS 71 U/L (45-117); BILIRUBIN,TOTAL 0.9 mg/dL (0.2-1.0); CREATININE 0.3 mg/dL (0.55-1.02); PHOSPHOROUS 2.4 mg/dL (2.5-4.9); SGOT/AST 25 U/L (15-37); SGPT/ALT 16 U/L (12-78); TOT PROT 4.6 g/dl (6.4-8.2)
[2016-11-27] MEDS ORDERED: PT OWN MED DRAWER 7, Y5N ONE (09:26)
--- NOTE | 2016-11-27 09:28 | PN ---
Progress Note (short form) - Note Progress Note: PULMONARY/CCM Pt seen and examined in the ICU. Denies any complaints. Pain controlled with current regimen. No fevers recorded. Denies shortness of breath or chest pain. Last Vital Signs Temp Pulse Resp BP Pulse Ox 100.1 F H 106 H 23 139/85 96 11/27/16 06:00 11/27/16 08:00 11/27/16 08:00 11/27/16 08:00 11/26/16 21:00 Intake & Output 11/24/16 11/25/16 11/26/16 11/27/16 23:59 23:59 23:59 23:59 Intake Total 4928.7 3600 2950 100 Output Total 1165 1445 2230 1300 Balance 3763.7 2155 720 -1200 Weight 168 lb 3.403 oz 181 lb 14.102 oz 176 lb 1.6 oz 176 lb Gen: NAD at rest Heart: tachycardic, regular Lung: decreased breath sounds at the bases Abd: soft, +ostomy with output, +RIMMA with minimal serosanguinous output Ext: no edema CBC, BMP 11/27/16 05:35 11/27/16 05:35 Active Medications Heparin Sodium (Porcine) (Heparin -) 5,000 unit SQ TID [facility] Last Admin: 11/27/16 06:56 Dose: 5,000 unit Hydromorphone HCl (Dilaudid Injection -) 1 mg IVPUSH Q4H PRN PRN Reason: PAIN Last Admin: 11/25/16 19:30 Dose: 1 mg Pantoprazole Sodium (Protonix 40mg Ivpb (Pre-Docked)) 100 mls @ 200 mls/hr IVPB DAILY [facility] Last Admin: 11/26/16 09:53 Dose: 200 mls/hr Piperacillin Sod/Tazobactam Sod (Zosyn 4.5gm Ivpb (Pre-Docked)) 100 mls @ 200 mls/hr IVPB Q8H-IV CELENA PRN Reason: Protocol Last Admin: 11/27/16 01:55 Dose: 200 mls/hr Lactated Ringer's (Lactated Ringers Solution) 1,000 mls @ 100 mls/hr IV ASDIR [facility] Last Admin: 11/26/16 09:53 Dose: 100 mls/hr Fluconazole (Diflucan 400 Mg/Ns Premixed Ivpb -) 200 mls @ 200 mls/hr IVPB DAILY [facility] Last Admin: 11/26/16 10:42 Dose: 200 mls/hr Insulin Aspart (Novolog Vial Sliding Scale -) 1 vial SQ Q6H CELENA PRN Reason: Protocol Last Admin: 11/27/16 05:24 Dose: Not Given Mupirocin (Bactroban Ointment (For Decolonization) -) 1 applic NS BID [facility] Stop: 11/29/16 09:59 Last Admin: 11/26/16 23:42 Dose: 1 applic Ondansetron HCl (Zofran Injection) 4 mg IVPB Q6H PRN PRN Reason: NAUSEA A/P Perforated Sigmoid Diverticulitis s/p ex-lap/sigmoid resection/colostomy HTN DM Hyperlipidemia Dementia - continue antibiotics - f/u OR cultures - IVF - replete lytes - monitor urine output, creatinine - pain control - incentive spirometry if able - await return of bowel function - OOB to chair - DVT prophylaxis - can transfer to floor when ok with surgery
[2016-11-27] MEDS ORDERED: MAGNESIUM SULF 50% (8.12 MEQ/2 ML-1 GM VIAL) IVPB ONE (09:29)
[2016-11-27] MEDS: MUPIROCIN 2% TOPICAL OINTMENT FOR DECOLONIZATION NS SCH ×2 (09:30→21:40)
[2016-11-27] MEDS: PANTOPRAZOLE SODIUM 100 ML IVPB SCH (09:30)
[2016-11-27] MEDS: FLUCONAZOLE 400 MG/NS 200 ML IVPB SCH (09:30)
[2016-11-27] MEDS: KCL 10 MEQ IVPB 100 ML IVPB SCH ×3 (09:49→13:02)
[2016-11-27] MEDS ORDERED: POTASSIUM PHOSPHATE 20 MM in DEXTROSE 5%-WATER - 250 ML IVPB ONE (10:00)
[2016-11-27] MEDS ORDERED: ACETAMINOPHEN 1000 MG/100 ML VIAL (NON FORMULARY) IVPB PRN (10:36)
[2016-11-27] MEDS: LACTATED RINGERS SOLUTION 1,000 ML IV SCH (11:51)
--- NOTE | 2016-11-27 19:06 | PN ---
Progress Note (short form) - Note Progress Note: Patient is feeling better, son is at bedside Temperature 99 F 11/27/16 14:00 Pulse Rate 104 H 11/27/16 18:00 Respiratory Rate 19 11/27/16 18:00 Blood Pressure 140/83 11/27/16 18:00 O2 Sat by Pulse Oximetry (%) 96 11/26/16 21:00 GENERAL: The patient is awake, alert,in no acute distress. HEAD: Normal with no signs of trauma. EYES: PERRL, extraocular movements intact, sclera anicteric, conjunctiva clear. ENT: Ears normal, oropharynx clear without exudates, moist mucous membranes. NECK: Trachea midline, full range of motion, supple. LUNGS: extubated, saturating 98% now, clear to auscultation bilaterally, no wheezes, no crackles, no accessory muscle use. HEART: tachycardic improving, S1, S2 without murmur, rub or gallop. ABDOMEN: positive for Osteomy bag positive for stool ,positive for RIMMA drainage of serasanguineous fluid, around 5cc. EXTREMITIES: 2+ pulses, warm, well-perfused, no edema. NEUROLOGICAL: Cranial nerves II through XII grossly intact. Normal speech, gait not observed. PSYCH: Normal mood, normal affect. SKIN: Warm, dry, normal turgor, no rashes or lesions noted CBCD WBC 12.4 K/mm3 (4.0-10.0) H 11/27/16 05:35 RBC 4.03 M/mm3 (3.60-5.2) 11/27/16 05:35 Hgb 8.9 GM/dL (10.7-15.3) L D 11/27/16 05:35 Hct 27.8 % (32.4-45.2) L 11/27/16 05:35 MCV 69.0 fl (80-96) L 11/27/16 05:35 MCHC 31.9 g/dl (32.0-36.0) L 11/27/16 05:35 RDW 15.1 % (11.6-15.6) 11/27/16 05:35 Plt Count 285 K/MM3 (134-434) 11/27/16 05:35 MPV 8.2 fl (7.5-11.1) 11/27/16 05:35 CMP Sodium 143 mmol/L (136-145) 11/27/16 05:35 Potassium 2.6 mmol/L (3.5-5.1) L* D 11/27/16 05:35 Chloride 102 mmol/L (98-107) 11/27/16 05:35 Carbon Dioxide 29 mmol/L (21-32) 11/27/16 05:35 Anion Gap 12 (8-16) 11/27/16 05:35 BUN 3 mg/dL (7-18) L D 11/27/16 05:35 Creatinine 0.3 mg/dL (0.55-1.02) L D 11/27/16 05:35 Creat Clearance w eGFR > 60 (>60) 11/27/16 05:35 Random Glucose 99 mg/dL (74-106) 11/27/16 05:35 Calcium 7.2 mg/dL (8.5-10.1) L 11/27/16 05:35 Total Bilirubin 0.9 mg/dL (0.2-1.0) D 11/27/16 05:35 AST 25 U/L (15-37) 11/27/16 05:35 ALT 16 U/L (12-78) 11/27/16 05:35 Alkaline Phosphatase 71 U/L (45-117) D 11/27/16 05:35 Total Protein 4.6 g/dl (6.4-8.2) L 11/27/16 05:35 Albumin 1.8 g/dl (3.4-5.0) L 11/27/16 05:35 Current Medications Generic Name Dose Route Start Last Admin Trade Name Chidi PRN Reason Stop Dose Admin Acetaminophen 1,000 mg 11/27/16 10:36 11/27/16 11:50 Ofirmev Injection - IVPB 11/28/16 04:37 1,000 mg Q6H PRN Administration FEVER OR PAIN Heparin Sodium (Porcine) 5,000 unit 11/24/16 14:00 11/27/16 14:44 Heparin - SQ 5,000 unit TID CELENA Administration Hydromorphone HCl 1 mg 11/24/16 14:32 11/25/16 19:30 Dilaudid Injection - IVPUSH 1 mg Q4H PRN Administration PAIN Pantoprazole Sodium 100 mls @ 200 mls/hr 11/24/16 10:00 11/27/16 09:30 Protonix 40mg Ivpb (Pre-Docked) IVPB 200 mls/hr DAILY CELENA Administration Piperacillin Sod/Tazobactam Sod 100 mls @ 200 mls/hr 11/24/16 18:00 11/27/16 17 :05 Zosyn 4.5gm Ivpb (Pre-Docked) IVPB 200 mls/hr Q8H-IV CELENA Administration Protocol Lactated Ringer's 1,000 mls @ 100 mls/hr 11/25/16 10:45 11/27/16 11:51 Lactated Ringers Solution IV 100 mls/hr ASDIR CELENA Administration Fluconazole 200 mls @ 200 mls/hr 11/26/16 10:00 11/27/16 09:30 Diflucan 400 Mg/Ns Premixed Ivpb - IVPB 200 mls/hr DAILY CELENA Administration Insulin Aspart 1 vial 11/25/16 10:45 11/27/16 17:05 Novolog Vial Sliding Scale - SQ Not Given Q6H CELENA Protocol Mupirocin 1 applic 11/24/16 10:00 11/27/16 09:30 Bactroban Ointment (For Decolonization) - NS 11/29/16 09:59 1 applic BID CELENA Administration Ondansetron HCl 4 mg 11/24/16 00:37 Zofran Injection IVPB Q6H PRN NAUSEA Home Medications Medication Instructions Recorded Amlodipine Besylate [Norvasc] 5 mg PO DAILY 01/12/12 Famotidine [Pepcid] 20 mg PO BID #20 tablet 04/07/12 Pantoprazole Sodium [Protonix] 40 mg PO ONCE #20 tablet.ec 12/19/12 Amlodipine Besylate [Norvasc -] 5 mg PO DAILY #0 tablet 12/27/12 Aripiprazole [Abilify -] 5 mg PO DAILY #0 tablet 12/27/12 Citalopram Hydrobromide [Celexa -] 20 mg PO DAILY #0 tablet 12/27/12 Docusate Sodium [Colace -] 100 mg PO BID #20 capsule 12/27/12 Donepezil HCl [Aricept -] 5 mg PO DAILY #0 tablet 12/27/12 Mag Hydrox/Al Hydrox/Simeth 30 ml PO Q6H PRN #0 cup 12/27/12 [Mylanta Oral Suspension -] Metoclopramide HCl [Reglan -] 5 mg PO TID #0 tablet 12/27/12 Pantoprazole Sodium [Protonix -] 40 mg PO DAILY #0 tablet.ec 12/27/12 Microbiology 11/23/16 16:30 Blood - Peripheral Venous Blood Culture - Preliminary NO GROWTH OBTAINED AFTER 96 HOURS, INCUBATION TO CONTINUE FOR 1 DAYS. 11/23/16 16:10 Blood - Peripheral Venous Blood Culture - Preliminary NO GROWTH OBTAINED AFTER 96 HOURS, INCUBATION TO CONTINUE FOR 1 DAYS. 11/24/16 01:00 Peritoneal Fluid Gram Stain - Final 11/24/16 01:00 Peritoneal Fluid Body Fluid Culture - Final Escherichia Coli Enterococcus Faecium 11/24/16 01:00 Peritoneal Fluid Anaerobic Culture - Final NO ANAEROBES WERE ISOLATED Abd.XR (11/23) - reported positive for Free air under diaphragm. CXR (11/24) - ET tube well positioned. No pneumothorax or pleural effusions. Possible trace atelectasis at LLL. ASSESSMENT AND PLAN: Patient is a 71 yo F from [facility] with significant PMHx of HTN, DM, dementia , hyperlipidemia, and hypercholesterolemia, who presents to the ER for free air under the diaphragm that was seen on outpatient xray. Family functioning as historian as she is nonverbal # POD# 4 s/p exploratory laparotomy for sigmoid perforation; Bx report positive for diverticulitis and diverticulosis , On IV antibiotic ,Zosyn , and Diflucan IV as per ID. due to Peritoneal fluid reporting yeast like cells . # Acute respiratory failure s/p Surgery s/p extubation today., off oxygen now, saturating well. On clear liquid diet now. #Hx of Dementia hold for po meds for now, patient is extubated now, patient pulled the NG tube yesterday . As per surgeon not to reinsert the NG tube. # Diabetes type 2, controlled, sc with coverage # Hx Hyperlipemia hold po meds for now. DVT ppx: Hep SQ GI Px: IV protonix Visit type - Emergency Visit Emergency Visit: Yes ED Registration Date: 11/23/16 Care time: The patient presented to the Emergency Department on the above date and was hospitalized for further evaluation of their emergent condition. - New Patient This patient is new to me today: No - Critical Care Critical Care patient: No - Discharge Referral Physician Referral: Henrry Landeros MD ([facility])
[2016-11-28] MEDS: PIPERACILLIN/TAZOB 4.5 GM 100 ML IVPB SCH ×3 (01:11→18:10)
[2016-11-28] MEDS: INSULIN SLIDING SCALE (NOVOLOG) 1 VIAL SQ SCH ×4 (05:50→22:27)
[2016-11-28] MEDS: HEPARIN NA (PORCINE) 5,000 UNITS/ML 1ML VIAL SQ SCH ×3 (05:51→22:10)
[2016-11-28] MEDS: LACTATED RINGERS SOLUTION 1,000 ML IV SCH (05:51)
[2016-11-28 06:12] LABS: BASOPHIL 0.7 % (0-2.0); EOSINOPHIL 2.3 % (0-4.5); MCH 22.3 pg (25.7-33.7); MCHC 32.3 g/dl (32.0-36.0); MEAN PLT VOLUME 7.8 fl (7.5-11.1); NEUTROPHILS 76.1 % (42.8-82.8); PLATELET COUNT 327 K/MM3 (134-434); RDW 15.1 % (11.6-15.6); WHITE BLOOD COUNT 12.3 K/mm3 (4.0-10.0)
[2016-11-28 06:46] LABS: ALBUMIN 1.8 g/dl (3.4-5.0); ANION GAP 8 (8-16); CALCIUM 7.4 mg/dL (8.5-10.1); CO2 34 mmol/L (21-32); GLUCOSE,RANDOM 118 mg/dL (74-106)
[2016-11-28 06:49] LABS: ALK PHOS 66 U/L (45-117); BILIRUBIN,TOTAL 0.6 mg/dL (0.2-1.0); CREATININE 0.3 mg/dL (0.55-1.02); PHOSPHOROUS 2.5 mg/dL (2.5-4.9); SGOT/AST 26 U/L (15-37); SGPT/ALT 20 U/L (12-78); TOT PROT 4.5 g/dl (6.4-8.2)
--- NOTE | 2016-11-28 07:08 | PN ---
Progress Note (short form) - Note Progress Note: Attending Surgeon POD #5 (11/27/16) In ICU; awake and at baseline me; keep FC while in ICU; possible xfer to floor in next 24 hours; d/w familyntal status VSS AF abdo-soft; flat and non tender; ostomy viable and w/stool and flatis; wound open and c/d/i; RIMMA serosanguinous labs reviewed IMP:doing well PLAN: Continue present tx.; start clear liquid diet; OOB ;pulmonary toilet; possible xfer to floor; keep FC while in ICU. Harvinder Suazo MD FACS
--- NOTE | 2016-11-28 07:26 | PN ---
Progress Note, Physician Chief Complaint: ID Post day 5 Remains stable no issues Zosyn continues Some low grade temps noted - Current Medication List Current Medications: Active Medications Heparin Sodium (Porcine) (Heparin -) 5,000 unit SQ TID [facility] Last Admin: 11/28/16 05:51 Dose: 5,000 unit Hydromorphone HCl (Dilaudid Injection -) 1 mg IVPUSH Q4H PRN PRN Reason: PAIN Last Admin: 11/25/16 19:30 Dose: 1 mg Pantoprazole Sodium (Protonix 40mg Ivpb (Pre-Docked)) 100 mls @ 200 mls/hr IVPB DAILY [facility] Last Admin: 11/27/16 09:30 Dose: 200 mls/hr Piperacillin Sod/Tazobactam Sod (Zosyn 4.5gm Ivpb (Pre-Docked)) 100 mls @ 200 mls/hr IVPB Q8H-IV CELENA PRN Reason: Protocol Last Admin: 11/28/16 01:11 Dose: 200 mls/hr Lactated Ringer's (Lactated Ringers Solution) 1,000 mls @ 100 mls/hr IV ASDIR [facility] Last Admin: 11/28/16 05:51 Dose: 100 mls/hr Fluconazole (Diflucan 400 Mg/Ns Premixed Ivpb -) 200 mls @ 200 mls/hr IVPB DAILY [facility] Last Admin: 11/27/16 09:30 Dose: 200 mls/hr Insulin Aspart (Novolog Vial Sliding Scale -) 1 vial SQ Q6H CELENA PRN Reason: Protocol Last Admin: 11/28/16 05:50 Dose: Not Given Mupirocin (Bactroban Ointment (For Decolonization) -) 1 applic NS BID [facility] Stop: 11/29/16 09:59 Last Admin: 11/27/16 21:40 Dose: 1 applic Ondansetron HCl (Zofran Injection) 4 mg IVPB Q6H PRN PRN Reason: NAUSEA - Objective Vital Signs: Vital Signs Temperature 99.4 F 11/28/16 06:00 Pulse Rate 95 H 11/28/16 06:00 Respiratory Rate 26 H 11/28/16 06:00 Blood Pressure 134/83 11/28/16 06:00 O2 Sat by Pulse Oximetry (%) 99 11/27/16 20:45 Constitutional: Yes: Well Nourished, No Distress Cardiovascular: Yes: Tachycardia, S1, S2 Respiratory: Yes: WNL, Regular, CTA Bilaterally Gastrointestinal: Yes: Soft, Other (ostomy with RIMMA drain) Labs: CBC, BMP 11/28/16 05:30 INR, PTT INR 1.68 (0.82-1.09) H D 11/25/16 09:45 Problem List - Problems (1) Intestinal perforation Code(s): K63.1 - PERFORATION OF INTESTINE (NONTRAUMATIC) (2) Peritonitis Code(s): K65.9 - PERITONITIS, UNSPECIFIED Assessment/Plan Microbiology 11/24/16 01:00 Peritoneal Fluid Gram Stain - Final 11/24/16 01:00 Peritoneal Fluid Anaerobic Culture - Final Escherichia Coli Enterococcus Faecium NO ANAEROBES WERE ISOLATED 11/23/16 16:30 Blood - Peripheral Venous Blood Culture - Preliminary NO GROWTH OBTAINED AFTER 96 HOURS, INCUBATION TO CONTINUE FOR 1 DAYS. 11/23/16 16:10 Blood - Peripheral Venous Blood Culture - Preliminary NO GROWTH OBTAINED AFTER 96 HOURS, INCUBATION TO CONTINUE FOR 1 DAYS. Laboratory Tests 11/27/16 11/28/16 11/28/16 05:35 05:30 05:30 WBC 12.3 H Hct 28.4 L Plt Count 327 Potassium 2.6 L* D Pending BUN 3 L D Creatinine 0.3 L D Assessment Perforated viscus / day 5 surgery OPerative culture seen Plan Cultures reviewed E Coli and Enterococcus faecium latter resistant to PCN Will add Vancomycin for addition gram positive coverage Moniter fever and WBC response Bernadine RASCON
--- NOTE | 2016-11-28 07:43 | PN ---
Physical Exam: 24H events: yesterday: low grade fevers - Tmax 100.7 O/N: Tmax 99.8 AM: Vanc added to broaden GP coverage (OR c/x Enterococcus faecium resistant to PCN); Adv to clear diet per Surgery Lines/drains: Pritchett catheter - L Ostomy - pink, patent, feculent drainage R RIMMA - minimal serosanguinous drainage R EJ- d/c today SUBJECTIVE: Patient seen and examined. Baseline dementia. No complaints this morning. OBJECTIVE: Vital Signs Period Temp Pulse Resp BP Sys/Campbell Pulse Ox Last 24 Hr 99 F-100.7 F 95-110 19-27 126-148/69-102 99 I/Os: Intake & Output: 8hours 11/27/16 11/28/16 11/28/16 23:59 07:59 15:59 Intake Total 920 1020 Output Total 405 1410 Balance 515 -390 Weight 79.469 kg Intake: IV 400 800 Lactated Ringers Solution 400 800 1,000 ml @ 100 mls/hr IV ASDIR [facility] Rx#: [id number] IVPB 100 Oral 520 120 Output: Drainage 5 10 Left Abdomen 5 Right Abdomen (RIMMA, serosanginous) 10 Urine 400 1400 Pritchett (clear, yellow) 400 1400 Other: Voiding Method Indwelling Catheter Indwelling Catheter Bowel Movement Yes: colostomy Yes: 50cc Weight Measurement Method Built in [facility] GENERAL: The patient is awake, alert, in no acute distress. EYES: sclera anicteric, conjunctiva clear ENT: oropharynx clear without exudates, moist mucous membranes LUNGS: bibasilar crackles HEART: RRR, normal S1/S2 without murmur, rub or gallop. ABDOMEN: Soft, ntnd, L ostomy pink, patent, R RIMMA drain (serosanguinous drainage) EXTREMITIES: 2+ pulses, wwp, no edema CBC, BMP 11/28/16 05:30 11/28/16 05:30 Microbiology 11/23/16 16:30 Blood - Peripheral Venous Blood Culture - Preliminary NO GROWTH OBTAINED AFTER 96 HOURS, INCUBATION TO CONTINUE FOR 1 DAYS. 11/23/16 16:10 Blood - Peripheral Venous Blood Culture - Preliminary NO GROWTH OBTAINED AFTER 96 HOURS, INCUBATION TO CONTINUE FOR 1 DAYS. 11/24/16 01:00 Peritoneal Fluid Gram Stain - Final 11/24/16 01:00 Peritoneal Fluid Body Fluid Culture - Final Escherichia Coli Enterococcus Faecium 11/24/16 01:00 Peritoneal Fluid Anaerobic Culture - Final NO ANAEROBES WERE ISOLATED CXR 11/28/16: "Since the prior exam of 11/25/2016 at 0503 hours, an NG tube has been inserted and the tip is below the GE junction. There is tubing by the right apex. There is a weak inspiratory effort with dense left base which could represent fluid, atelectasis and/or infiltrate and this is unchanged from the prior exam. There is a prominent mediastinum with scoliosis and degenerative changes. There is a sclerotic knob. Impression: NG tube in place. Dense left base. Weak inspiration. Tubing over right apex." Active Medications Heparin Sodium (Porcine) (Heparin -) 5,000 unit SQ TID [facility] Last Admin: 11/28/16 05:51 Dose: 5,000 unit Hydromorphone HCl (Dilaudid Injection -) 1 mg IVPUSH Q4H PRN PRN Reason: PAIN Last Admin: 11/25/16 19:30 Dose: 1 mg Pantoprazole Sodium (Protonix 40mg Ivpb (Pre-Docked)) 100 mls @ 200 mls/hr IVPB DAILY [facility] Last Admin: 11/27/16 09:30 Dose: 200 mls/hr Piperacillin Sod/Tazobactam Sod (Zosyn 4.5gm Ivpb (Pre-Docked)) 100 mls @ 200 mls/hr IVPB Q8H-IV [facility]LENA PRN Reason: Protocol Last Admin: 11/28/16 01:11 Dose: 200 mls/hr Lactated Ringer's (Lactated Ringers Solution) 1,000 mls @ 100 mls/hr IV ASDIR [facility] Last Admin: 11/28/16 05:51 Dose: 100 mls/hr Vancomycin HCl 1,250 mg/ (Dextrose) 250 mls @ 250 mls/hr IVPB BID [facility] PRN Reason: Protocol Insulin Aspart (Novolog Vial Sliding Scale -) 1 vial SQ Q6H [facility]LE[facility] PRN Reason: Protocol Last Admin: 11/28/16 05:50 Dose: Not Given Mupirocin (Bactroban Ointment (For Decolonization) -) 1 applic NS BID [facility] Stop: 11/29/16 09:59 Last Admin: 11/27/16 21:40 Dose: 1 applic Ondansetron HCl (Zofran Injection) 4 mg IVPB Q6H PRN PRN Reason: NAUSEA ASSESSMENT/PLAN: 71 yo woman with PMH of HTN, DM, and dementia (non-verbal) who is POD5 s/p ex- lap with sigmoid resection/colostomy for perforated sigmoid diverticulitis and is currently stable. Tolerating clear fluids. Can be transferred to Med/Surg today. #ID -Continue abx per ID recs * Zosyn 4.5g Q8H * Vanc 1.25g IVPB BID -Daily dressing changes -Trend WBC, fever #Pulm -O2 support on NC, titrate SpO2 >94% -Monitor respiratory status #Renal: Replete K (2.9) -KCl 10mEq KCl IVBP x 3bags -KCl 40mEq PO Once #Endo: -ISS 1 vial SQ Q6H while on Clear Diet -BGM Q6H #GI -Zofran 4mg IV q6h prn for nausea -qshift Ostomy site checks for signs of infection/drainage/bleeding -Monitor bowel function via ostomy output #Neuro -Hydromorphone 1 mg IVPUSH Q4H PRN for pain control #FEN -Hold IVF -Electrolytes: Replete K, daily BMPs -Nutrition: Clear fluids per surgery #ppx -Protonix 40mg IV daily -Heparin 5000U SQ TID Plan discussed with attending, Dr. Albino Santos, PGY1 Visit type - Emergency Visit Emergency Visit: No - New Patient This patient is new to me today: Yes Date on this admission: 11/28/16 - Critical Care Critical Care patient: Yes Total Critical Care Time (in minutes): 36 Critical Care Statement: The care of this patient involved high complexity decision making to prevent further life threatening deterioration of the patient 's condition and/or to evaluate & treat vital organ system(s) failure or risk of failure.
[2016-11-28] MEDS ORDERED: POTASSIUM CHLORIDE ORAL LIQUID 20 MEQ/15 ML PO ONE (08:55)
[2016-11-28] MEDS ORDERED: KCL 10 MEQ IVPB 100 ML IVPB SCH (09:00)
[2016-11-28] MEDS ORDERED: PT OWN MED DRAWER 7, Y5N ONE (09:09)
[2016-11-28] MEDS: PANTOPRAZOLE SODIUM 100 ML IVPB SCH (09:11)
[2016-11-28] MEDS: MUPIROCIN 2% TOPICAL OINTMENT FOR DECOLONIZATION NS SCH (09:12)
[2016-11-28] MEDS ORDERED: VANCOMYCIN 1,250 MG in DEXTROSE 5%-WATER - 250 ML IVPB SCH (10:00)
--- NOTE | 2016-11-28 10:23 | PN ---
Progress Note (short form) - Note Progress Note: IN ICU: Patient looks comfortable, stool in ostomy bag. Temperature 98.5 F 11/28/16 09:40 Pulse Rate 98 H 11/28/16 10:05 Respiratory Rate 14 11/28/16 09:40 Blood Pressure 136/80 11/28/16 09:40 O2 Sat by Pulse Oximetry (%) 100 11/28/16 10:05 GENERAL: The patient is awake, alert,in no acute distress. HEAD: Normal with no signs of trauma. EYES: PERRL, extraocular movements intact, sclera anicteric, conjunctiva clear. ENT: Ears normal, oropharynx clear without exudates, moist mucous membranes. NECK: Trachea midline, full range of motion, supple. LUNGS: extubated, saturating 100% now, clear to auscultation bilaterally, no wheezes, no crackles, no accessory muscle use. HEART: NSR, S1, S2 without murmur, rub or gallop. ABDOMEN: positive for Osteomy bag positive for stool ,positive for RIMMA drainage of serasanguineous fluid, around 5cc. EXTREMITIES: 2+ pulses, warm, well-perfused, no edema. NEUROLOGICAL: Cranial nerves II through XII grossly intact. Normal speech, gait not observed. PSYCH: Normal mood, normal affect. SKIN: Warm, dry, normal turgor, no rashes or lesions noted CBCD WBC 12.3 K/mm3 (4.0-10.0) H 11/28/16 05:30 RBC 4.12 M/mm3 (3.60-5.2) 11/28/16 05:30 Hgb 9.2 GM/dL (10.7-15.3) L 11/28/16 05:30 Hct 28.4 % (32.4-45.2) L 11/28/16 05:30 MCV 69.0 fl (80-96) L 11/28/16 05:30 MCHC 32.3 g/dl (32.0-36.0) 11/28/16 05:30 RDW 15.1 % (11.6-15.6) 11/28/16 05:30 Plt Count 327 K/MM3 (134-434) 11/28/16 05:30 MPV 7.8 fl (7.5-11.1) 11/28/16 05:30 CMP Sodium 144 mmol/L (136-145) 11/28/16 05:30 Potassium 2.9 mmol/L (3.5-5.1) L* 11/28/16 05:30 Chloride 102 mmol/L (98-107) 11/28/16 05:30 Carbon Dioxide 34 mmol/L (21-32) H 11/28/16 05:30 Anion Gap 8 (8-16) 11/28/16 05:30 BUN 2 mg/dL (7-18) L* D 11/28/16 05:30 Creatinine 0.3 mg/dL (0.55-1.02) L 11/28/16 05:30 Creat Clearance w eGFR > 60 (>60) 11/28/16 05:30 Random Glucose 118 mg/dL (74-106) H 11/28/16 05:30 Calcium 7.4 mg/dL (8.5-10.1) L 11/28/16 05:30 Total Bilirubin 0.6 mg/dL (0.2-1.0) D 11/28/16 05:30 AST 26 U/L (15-37) 11/28/16 05:30 ALT 20 U/L (12-78) D 11/28/16 05:30 Alkaline Phosphatase 66 U/L (45-117) 11/28/16 05:30 Total Protein 4.5 g/dl (6.4-8.2) L 11/28/16 05:30 Albumin 1.8 g/dl (3.4-5.0) L 11/28/16 05:30 Current Medications Generic Name Dose Route Start Last Admin Trade Name Freq PRN Reason Stop Dose Admin Heparin Sodium (Porcine) 5,000 unit 11/24/16 14:00 11/28/16 05:51 Heparin - SQ 5,000 unit TID CELENA Administration Hydromorphone HCl 1 mg 11/24/16 14:32 11/25/16 19:30 Dilaudid Injection - IVPUSH 1 mg Q4H PRN Administration PAIN Pantoprazole Sodium 100 mls @ 200 mls/hr 11/24/16 10:00 11/28/16 09:11 Protonix 40mg Ivpb (Pre-Docked) IVPB 200 mls/hr DAILY CELE[facility] Administration Piperacillin Sod/Tazobactam Sod 100 mls @ 200 mls/hr 11/24/16 18:00 11/28/16 09 :11 Zosyn 4.5gm Ivpb (Pre-Docked) IVPB 200 mls/hr Q8H-IV [facility]LENA Administration Protocol Vancomycin HCl 1,250 mg/ 250 mls @ 166.667 mls/hr 11/28/16 10:00 Dextrose IVPB BID CELENA Protocol Insulin Aspart 1 vial 11/25/16 10:45 11/28/16 05:50 Novolog Vial Sliding Scale - SQ Not Given Q6H CELENA Protocol Mupirocin 1 applic 11/24/16 10:00 11/28/16 09:12 Bactroban Ointment (For Decolonization) - NS 11/29/16 09:59 1 applic BID CELENA Administration Ondansetron HCl 4 mg 11/24/16 00:37 Zofran Injection IVPB Q6H PRN NAUSEA Home Medications Medication Instructions Recorded Amlodipine Besylate [Norvasc] 5 mg PO DAILY 01/12/12 Famotidine [Pepcid] 20 mg PO BID #20 tablet 04/07/12 Pantoprazole Sodium [Protonix] 40 mg PO ONCE #20 tablet.ec 12/19/12 Amlodipine Besylate [Norvasc -] 5 mg PO DAILY #0 tablet 12/27/12 Aripiprazole [Abilify -] 5 mg PO DAILY #0 tablet 12/27/12 Citalopram Hydrobromide [Celexa -] 20 mg PO DAILY #0 tablet 12/27/12 Docusate Sodium [Colace -] 100 mg PO BID #20 capsule 12/27/12 Donepezil HCl [Aricept -] 5 mg PO DAILY #0 tablet 12/27/12 Mag Hydrox/Al Hydrox/Simeth 30 ml PO Q6H PRN #0 cup 12/27/12 [Mylanta Oral Suspension -] Metoclopramide HCl [Reglan -] 5 mg PO TID #0 tablet 12/27/12 Pantoprazole Sodium [Protonix -] 40 mg PO DAILY #0 tablet.ec 12/27/12 Microbiology 11/23/16 16:30 Blood - Peripheral Venous Blood Culture - Preliminary NO GROWTH OBTAINED AFTER 96 HOURS, INCUBATION TO CONTINUE FOR 1 DAYS. 11/23/16 16:10 Blood - Peripheral Venous Blood Culture - Preliminary NO GROWTH OBTAINED AFTER 96 HOURS, INCUBATION TO CONTINUE FOR 1 DAYS. 11/24/16 01:00 Peritoneal Fluid Gram Stain - Final 11/24/16 01:00 Peritoneal Fluid Body Fluid Culture - Final Escherichia Coli Enterococcus Faecium 11/24/16 01:00 Peritoneal Fluid Anaerobic Culture - Final NO ANAEROBES WERE ISOLATED Abd.XR (11/23) - reported positive for Free air under diaphragm. CXR (11/24) - ET tube well positioned. No pneumothorax or pleural effusions. Possible trace atelectasis at LLL. ASSESSMENT AND PLAN: Patient is a 71 yo F from [facility] with significant PMHx of HTN, DM, dementia , hyperlipidemia, and hypercholesterolemia, who presents to the ER for free air under the diaphragm that was seen on outpatient xray. Family functioning as historian as she is nonverbal # POD# 5 s/p exploratory laparotomy for sigmoid perforation; Bx report positive for diverticulitis and diverticulosis , On IV antibiotic ,Zosyn ,and vancomycin added off Diflucan IV now . # Acute respiratory failure s/p Surgery s/p extubation today., off oxygen now, saturating well. On clear liquid diet now. #Hx of Dementia hold for po meds for now, patient is extubated now, patient pulled the NG tube yesterday . As per surgeon not to reinsert the NG tube. # Diabetes type 2, controlled, sc with coverage # Hx Hyperlipemia hold po meds for now. DVT ppx: Hep SQ GI Px: IV protonix Visit type - Emergency Visit Emergency Visit: Yes ED Registration Date: 11/23/16 Care time: The patient presented to the Emergency Department on the above date and was hospitalized for further evaluation of their emergent condition. - New Patient This patient is new to me today: No - Critical Care Critical Care patient: No
--- NOTE | 2016-11-28 11:24 | PN ---
Teaching Attending Note Name of Resident: Venessa Santos ATTENDING PHYSICIAN STATEMENT I saw and evaluated the patient. I reviewed the resident's note and discussed the case with the resident. I agree with the resident's findings and plan as documented. SUBJECTIVE: Pt seen and examined in the ICU. Denies abdominal pain, shortness of breath or chest pain. Low grade temps overnight. OBJECTIVE: Last Vital Signs Temp Pulse Resp BP Pulse Ox 98.5 F 98 H 14 136/80 100 11/28/16 09:40 11/28/16 10:05 11/28/16 09:40 11/28/16 09:40 11/28/16 10:05 Intake & Output 11/25/16 11/26/16 11/27/16 11/28/16 23:59 23:59 23:59 23:59 Intake Total 3600 2950 2220 1860 Output Total 1445 2230 2805 2110 Balance 2155 720 -585 -250 Weight 181 lb 14.102 oz 176 lb 1.6 oz 176 lb 175 lb 3.2 oz Gen: NAD at rest Heart: RRR Lung: decreased breath sounds at the bases Abd: soft, +ostomy pink with stool output, +RIMMA with minimal serosanguinous drainage Ext: no edema CBC, BMP 11/28/16 05:30 11/28/16 05:30 Active Medications Heparin Sodium (Porcine) (Heparin -) 5,000 unit SQ TID [facility] Last Admin: 11/28/16 05:51 Dose: 5,000 unit Hydromorphone HCl (Dilaudid Injection -) 1 mg IVPUSH Q4H PRN PRN Reason: PAIN Last Admin: 11/25/16 19:30 Dose: 1 mg Pantoprazole Sodium (Protonix 40mg Ivpb (Pre-Docked)) 100 mls @ 200 mls/hr IVPB DAILY [facility] Last Admin: 11/28/16 09:11 Dose: 200 mls/hr Piperacillin Sod/Tazobactam Sod (Zosyn 4.5gm Ivpb (Pre-Docked)) 100 mls @ 200 mls/hr IVPB Q8H-IV [facility]EL[facility] PRN Reason: Protocol Last Admin: 11/28/16 09:11 Dose: 200 mls/hr Vancomycin HCl 1,250 mg/ (Dextrose) 250 mls @ 166.667 mls/hr IVPB BID [facility] PRN Reason: Protocol Last Admin: 11/28/16 11:09 Dose: 166.667 mls/hr Insulin Aspart (Novolog Vial Sliding Scale -) 1 vial SQ Q6H [facility]LE[facility] PRN Reason: Protocol Last Admin: 11/28/16 05:50 Dose: Not Given Mupirocin (Bactroban Ointment (For Decolonization) -) 1 applic NS BID [facility] Stop: 11/29/16 09:59 Last Admin: 11/28/16 09:12 Dose: 1 applic Ondansetron HCl (Zofran Injection) 4 mg IVPB Q6H PRN PRN Reason: NAUSEA ASSESSMENT AND PLAN: Perforated Sigmoid Diverticulitis s/p ex-lap/sigmoid resection/colostomy HTN DM Hyperlipidemia Dementia - continue antibiotics per ID - replete lytes - monitor urine output, creatinine - pain control - incentive spirometry if able - PO per janeen - OOB to chair if possible - DVT prophylaxis - can monitor on floor
[2016-11-28] MEDS: KCL 10 MEQ IVPB 100 ML IVPB SCH ×3 (13:00→15:57)
[2016-11-28] MEDS ORDERED: HYDROmorphone HCL CARPU-JECT 1 MG/1 ML DISP.SYRIN IVPUSH PRN (16:32)
[2016-11-28] MEDS ORDERED: ONDANSETRON 4 MG/2 ML VIAL IVPB PRN (16:32)
[2016-11-28] MEDS ORDERED: MUPIROCIN 2% TOPICAL OINTMENT FOR DECOLONIZATION NS SCH (22:00)
[2016-11-28] MEDS: VANCOMYCIN 1,250 MG in DEXTROSE 5%-WATER - 250 ML IVPB SCH (22:08)
[2016-11-29] MEDS ORDERED: PIPERACILLIN/TAZOBACTAM 4.5 GM VIAL IVPB ONE ×2 (01:46→09:53)
[2016-11-29] MEDS ORDERED: DEXTROSE 5%-WATER 100 ML IVPB ONE ×2 (01:46→09:53)
[2016-11-29] MEDS: PIPERACILLIN/TAZOB 4.5 GM 100 ML IVPB SCH (01:52)
[2016-11-29] MEDS: PIPERACILLIN/TAZOB 4.5 GM 4.5 GM in DEXTROSE 5%-WATER 100 ML IVPB SCH ×2 (02:26→09:58)
[2016-11-29] MEDS: INSULIN SLIDING SCALE (NOVOLOG) 1 VIAL SQ SCH ×4 (06:35→22:32)
[2016-11-29] MEDS: HEPARIN NA (PORCINE) 5,000 UNITS/ML 1ML VIAL SQ SCH ×3 (06:37→21:33)
[2016-11-29] MEDS ORDERED: PANTOPRAZOLE SODIUM 100 ML IVPB SCH (10:00)
[2016-11-29] MEDS ORDERED: PANTOPRAZOLE SODIUM 40 MG in SODIUM CHLORIDE 100 ML IVPB SCH (10:12)
[2016-11-29] MEDS: VANCOMYCIN 1,250 MG in DEXTROSE 5%-WATER - 250 ML IVPB SCH ×3 (10:17→22:38)
[2016-11-29 10:30] LABS: ANION GAP 8 (8-16); CALCIUM 7.9 mg/dL (8.5-10.1); CO2 32 mmol/L (21-32); CREATININE 0.5 mg/dL (0.55-1.02); GLUCOSE,RANDOM 143 mg/dL (74-106); MAGNESIUM 2.1 mg/dL (1.8-2.4); PHOSPHOROUS 2.2 mg/dL (2.5-4.9)
--- NOTE | 2016-11-29 10:33 | PN ---
Progress Note (short form) - Note Progress Note: post op day #6 doing well ate breakfast transferred out of ICU Vital Signs Period Temp Pulse Resp BP Sys/Campbell Pulse Ox Last 24 Hr 98.4 F-100.1 F 93-104 18-24 131-149/73-84 100-100 cor-rrr lungs decreased bs at bases abd soft, +ostomy function dressing intact +RIMMA drain ext no edema +childress CBC, BMP 11/28/16 05:30 Microbiology 11/23/16 16:30 Blood - Peripheral Venous Blood Culture - Final NO GROWTH AFTER 5 DAYS INCUBATION 11/23/16 16:10 Blood - Peripheral Venous Blood Culture - Final NO GROWTH AFTER 5 DAYS INCUBATION 11/24/16 01:00 Peritoneal Fluid Gram Stain - Final 11/24/16 01:00 Peritoneal Fluid Body Fluid Culture - Final Escherichia Coli Enterococcus Faecium 11/24/16 01:00 Peritoneal Fluid Anaerobic Culture - Final NO ANAEROBES WERE ISOLATED Current Medications Heparin Sodium (Porcine) (Heparin -) 5,000 unit SQ TID [facility] Last Admin: 11/29/16 06:37 Dose: 5,000 unit Hydromorphone HCl (Dilaudid Injection -) 1 mg IVPUSH Q4H PRN PRN Reason: PAIN Vancomycin HCl 1,250 mg/ (Dextrose) 250 mls @ 166.667 mls/hr IVPB BID [facility] PRN Reason: Protocol Last Admin: 11/29/16 10:17 Dose: 166.667 mls/hr Piperacillin Sod/Tazobactam (Sod 4.5 gm/ Dextrose) 100 mls @ 200 mls/hr IVPB Q8H-IV [facility] Last Admin: 11/29/16 09:58 Dose: 200 mls/hr Pantoprazole Sodium 40 mg/ (Sodium Chloride) 100 mls @ 200 mls/hr IVPB DAILY [facility] Insulin Aspart (Novolog Vial Sliding Scale -) 1 vial SQ Q6H [facility]LENA PRN Reason: Protocol Last Admin: 11/29/16 06:35 Dose: Not Given Ondansetron HCl (Zofran Injection) 4 mg IVPB Q6H PRN PRN Reason: NAUSEA a/p s/p perforated sigmoid diverticulitis post op day #6 can switch to unasyn vancomycin added yesterday consider d/c childress encourage OOB
[2016-11-29] MEDS ORDERED: PANTOPRAZOLE SODIUM 40 MG VIAL ONE (10:47)
[2016-11-29] MEDS ORDERED: SODIUM CHLORIDE 100 ML IVPB ONE (10:47)
--- NOTE | 2016-11-29 11:40 | PN ---
Progress Note (short form) - Note Progress Note: Attending Surgeon POD #6 On regular floor alert and at baseline mental status; tolerating clear liquid diet VSS AF abdomen- incision open and granulating; ostomy viable and functioning; RIMMA serosanguinous; abdomen soft Cultures noted; WBC today noted CXR-reviewed IMP: doing well PLAN: OOB ambulating; d/c FC; advance diet; RIMMA removed Harvinder Suazo MD FACS
[2016-11-29] MEDS: PANTOPRAZOLE SODIUM 40 MG in SODIUM CHLORIDE 100 ML IVPB SCH (12:11)
--- NOTE | 2016-11-29 16:15 | PN ---
Physical Exam: SUBJECTIVE: Patient seen and examined. Awake, Non verbal but smiling and nodding. Tolerating clear liquid diet. OBJECTIVE: Selected Entries 11/29/16 11/29/16 11/29/16 06:00 08:30 14:59 Temperature 98.8 F 97.9 F Pulse Rate 99 H 94 H 104 H Respiratory 20 20 16 Rate Blood Pressure 149/75 134/87 122/57 Vital Signs Period Temp Pulse Resp BP Sys/Campbell Pulse Ox Last 24 Hr 97.9 F-100.1 F 94-104 16-20 122-149/57-87 100 GENERAL: The patient is awake, in no acute distress. HEAD: Normal with no signs of trauma. ENT: moist mucous membranes. LUNGS: Breath sounds equal, clear to auscultation bilaterally, no wheezes, no crackles, no accessory muscle use. HEART: Regular rate and rhythm, S1, S2 without murmur, rub or gallop. ABDOMEN: Midline dressing and both RIMMA drain and colostomy were draining well in the morning. Soft, nontender, nondistended, normoactive bowel sounds, no guarding, no rebound, no hepatosplenomegaly, no masses. EXTREMITIES: no edema. NEUROLOGICAL: Averbal, but responding with to presence of people with smiles, gait not observed. PSYCH: Normal mood, normal affect. : Pritchett catheter in place draining clear urine Laboratory Results - last 24 hr 11/28/16 11/28/16 11/28/16 12:21 17:00 22:26 Sodium Potassium Chloride Carbon Dioxide Anion Gap BUN Creatinine POC Glucometer 219.30072 131.77327 121 Random Glucose Calcium Phosphorus Magnesium 11/29/16 11/29/16 11/29/16 06:34 09:20 12:05 Sodium 144 Potassium 3.1 L Chloride 104 Carbon Dioxide 32 Anion Gap 8 BUN 1 L* D Creatinine 0.5 L D POC Glucometer 125 160 Random Glucose 143 H D Calcium 7.9 L Phosphorus 2.2 L Magnesium 2.1 Active Medications Generic Name Dose Route Start Last Admin Trade Name Freq PRN Reason Stop Dose Admin Heparin Sodium (Porcine) 5,000 unit 11/28/16 22:00 11/29/16 14:04 Heparin - SQ 5,000 unit TID CELENA Administration Hydromorphone HCl 1 mg 11/28/16 16:32 Dilaudid Injection - IVPUSH Q4H PRN PAIN Vancomycin HCl 1,250 mg/ 250 mls @ 166.667 mls/hr 11/28/16 22:00 11/29/16 10:17 Dextrose IVPB 166.667 mls/hr BID CELENA Administration Protocol Pantoprazole Sodium 40 mg/ 100 mls @ 200 mls/hr 11/29/16 10:15 11/29/16 12:11 Sodium Chloride IVPB 200 mls/hr DAILY CELENA Administration Ampicillin Sodium/Sulbactam 100 mls @ 200 mls/hr 11/29/16 18:00 Sodium 3 gm/ Sodium Chloride IVPB Q8H-IV [facility]LE[facility] Insulin Aspart 1 vial 11/28/16 16:45 11/29/16 12:12 Novolog Vial Sliding Scale - SQ Not Given Q6H CELENA Protocol Ondansetron HCl 4 mg 11/28/16 16:32 Zofran Injection IVPB Q6H PRN NAUSEA ASSESSMENT/PLAN: #Perforated bowel: POD6 s/p Monse's procedure Extubated- on NC- sating well tolerating clear liquids iv antibiotics- metronidazole and zosyn continued Dilaudid 1mg iv push for pain mupirocin ointment for decolonization -Postop wound mx per surgeons KCl 40meq PO bid Per surgeons-RIMMA removed Ambulate Escalate diet #Tachycardia Monitor CT #Hypokalemia KCl 40meq PO bid #DM- Hyperglycemic, NPO Insulin aspart (novolog)- sliding scale iv subQ Q6H #dementia Still holding PO meds #hyperlipidemia intubated holding PO meds #hypercholesterolemia; Still holding PO meds #HTN-Blood pressure controlled Amlodipine Still holding PO meds #FEN: Oral fluids CMP, Mg, P, Ca Puree diet- per surgical team #Prophylaxis DVT: SubQ heparin GI: IV protonix Problem List - Problems (1) Intestinal perforation Code(s): K63.1 - PERFORATION OF INTESTINE (NONTRAUMATIC) (2) Peritonitis Code(s): K65.9 - PERITONITIS, UNSPECIFIED (3) Diabetes Code(s): E11.9 - TYPE 2 DIABETES MELLITUS WITHOUT COMPLICATIONS Qualifiers: Diabetes mellitus type: type 2 Visit type - Emergency Visit Emergency Visit: Yes ED Registration Date: 11/23/16 Care time: The patient presented to the Emergency Department on the above date and was hospitalized for further evaluation of their emergent condition. - New Patient This patient is new to me today: No - Critical Care Critical Care patient: No - Discharge Referral Referred to [facility] Med [facility] No
[2016-11-29] MEDS: POTASSIUM CHLORIDE TABS 20 MEQ TABLET.ER (FP) PO SCH ×2 (18:15→21:34)
[2016-11-29] MEDS: AMPICILLIN NA/SULBACTAM NA 3 GM in SODIUM CHLORIDE 100 ML IVPB SCH (18:15)
--- NOTE | 2016-11-29 19:14 | PN ---
Teaching Attending Note Name of Resident: Minna Navas ATTENDING PHYSICIAN STATEMENT I saw and evaluated the patient. I reviewed the resident's note and discussed the case with the resident. I agree with the resident's findings and plan as documented. SUBJECTIVE: Patient is comfortable ,with no acute distress OBJECTIVE: Vital Signs Temperature 97.1 F L 11/29/16 17:08 Pulse Rate 110 H 11/29/16 17:08 Respiratory Rate 20 11/29/16 17:08 Blood Pressure 154/84 11/29/16 17:08 O2 Sat by Pulse Oximetry (%) 99 11/29/16 09:00 CBCD WBC 12.3 K/mm3 (4.0-10.0) H 11/28/16 05:30 RBC 4.12 M/mm3 (3.60-5.2) 11/28/16 05:30 Hgb 9.2 GM/dL (10.7-15.3) L 11/28/16 05:30 Hct 28.4 % (32.4-45.2) L 11/28/16 05:30 MCV 69.0 fl (80-96) L 11/28/16 05:30 MCHC 32.3 g/dl (32.0-36.0) 11/28/16 05:30 RDW 15.1 % (11.6-15.6) 11/28/16 05:30 Plt Count 327 K/MM3 (134-434) 11/28/16 05:30 MPV 7.8 fl (7.5-11.1) 11/28/16 05:30 CMP Sodium 144 mmol/L (136-145) 11/29/16 09:20 Potassium 3.1 mmol/L (3.5-5.1) L 11/29/16 09:20 Chloride 104 mmol/L (98-107) 11/29/16 09:20 Carbon Dioxide 32 mmol/L (21-32) 11/29/16 09:20 Anion Gap 8 (8-16) 11/29/16 09:20 BUN 1 mg/dL (7-18) L* D 11/29/16 09:20 Creatinine 0.5 mg/dL (0.55-1.02) L D 11/29/16 09:20 Creat Clearance w eGFR > 60 (>60) 11/28/16 05:30 Random Glucose 143 mg/dL (74-106) H D 11/29/16 09:20 Calcium 7.9 mg/dL (8.5-10.1) L 11/29/16 09:20 Total Bilirubin 0.6 mg/dL (0.2-1.0) D 11/28/16 05:30 AST 26 U/L (15-37) 11/28/16 05:30 ALT 20 U/L (12-78) D 11/28/16 05:30 Alkaline Phosphatase 66 U/L (45-117) 11/28/16 05:30 Total Protein 4.5 g/dl (6.4-8.2) L 11/28/16 05:30 Albumin 1.8 g/dl (3.4-5.0) L 11/28/16 05:30 Current Medications Generic Name Dose Route Start Last Admin Trade Name Freq PRN Reason Stop Dose Admin Heparin Sodium (Porcine) 5,000 unit 11/28/16 22:00 11/29/16 14:04 Heparin - SQ 5,000 unit TID CELENA Administration Hydromorphone HCl 1 mg 11/28/16 16:32 Dilaudid Injection - IVPUSH Q4H PRN PAIN Vancomycin HCl 1,250 mg/ 250 mls @ 166.667 mls/hr 11/28/16 22:00 11/29/16 10:17 Dextrose IVPB 166.667 mls/hr BID CELENA Administration Protocol Pantoprazole Sodium 40 mg/ 100 mls @ 200 mls/hr 11/29/16 10:15 11/29/16 12:11 Sodium Chloride IVPB 200 mls/hr DAILY CELENA Administration Ampicillin Sodium/Sulbactam 100 mls @ 200 mls/hr 11/29/16 18:00 11/29/16 18:15 Sodium 3 gm/ Sodium Chloride IVPB 200 mls/hr Q8H-IV CELENA Administration Insulin Aspart 1 vial 11/28/16 16:45 11/29/16 17:44 Novolog Vial Sliding Scale - SQ Not Given Q6H CELENA Protocol Ondansetron HCl 4 mg 11/28/16 16:32 Zofran Injection IVPB Q6H PRN NAUSEA Potassium Chloride 40 meq 11/29/16 17:15 11/29/16 18:15 K-Dur - PO 11/29/16 22:01 40 meq BID CELENA Administration Home Medications Medication Instructions Recorded Amlodipine Besylate [Norvasc] 5 mg PO DAILY 01/12/12 Famotidine [Pepcid] 20 mg PO BID #20 tablet 04/07/12 Pantoprazole Sodium [Protonix] 40 mg PO ONCE #20 tablet.ec 12/19/12 Amlodipine Besylate [Norvasc -] 5 mg PO DAILY #0 tablet 12/27/12 Aripiprazole [Abilify -] 5 mg PO DAILY #0 tablet 12/27/12 Citalopram Hydrobromide [Celexa -] 20 mg PO DAILY #0 tablet 12/27/12 Docusate Sodium [Colace -] 100 mg PO BID #20 capsule 12/27/12 Donepezil HCl [Aricept -] 5 mg PO DAILY #0 tablet 12/27/12 Mag Hydrox/Al Hydrox/Simeth 30 ml PO Q6H PRN #0 cup 12/27/12 [Mylanta Oral Suspension -] Metoclopramide HCl [Reglan -] 5 mg PO TID #0 tablet 12/27/12 Pantoprazole Sodium [Protonix -] 40 mg PO DAILY #0 tablet.ec 12/27/12 11/23/16 16:30 Blood - Peripheral Venous Blood Culture - Preliminary NO GROWTH OBTAINED AFTER 96 HOURS, INCUBATION TO CONTINUE FOR 1 DAYS. 11/23/16 16:10 Blood - Peripheral Venous Blood Culture - Preliminary NO GROWTH OBTAINED AFTER 96 HOURS, INCUBATION TO CONTINUE FOR 1 DAYS. 11/24/16 01:00 Peritoneal Fluid Gram Stain - Final 11/24/16 01:00 Peritoneal Fluid Body Fluid Culture - Final Escherichia Coli Enterococcus Faecium 11/24/16 01:00 Peritoneal Fluid Anaerobic Culture - Final NO ANAEROBES WERE ISOLATED Abd.XR (11/23) - reported positive for Free air under diaphragm. CXR (11/24) - ET tube well positioned. No pneumothorax or pleural effusions. Possible trace atelectasis at LLL. ASSESSMENT AND PLAN: Patient is a 71 yo F from [facility] with significant PMHx of HTN, DM, dementia , hyperlipidemia, and hypercholesterolemia, who presents to the ER for free air under the diaphragm that was seen on outpatient xray. Family functioning as historian as she is nonverbal # Acute hypokalemia on potassium supplements # POD# 6 s/p exploratory laparotomy for sigmoid perforation; Bx report positive for diverticulitis and diverticulosis , On IV antibiotic ,Zosyn ,and vancomycin added off Diflucan IV now . # Acute respiratory failure s/p Surgery s/p extubation , saturating well. diet per surgery #Hx of Dementia hold for po meds for now, patient is extubated now, patient pulled the NG tube yesterday . As per surgeon not to reinsert the NG tube. # Diabetes type 2, controlled, sc with coverage # Hx Hyperlipemia hold po meds for now. DVT ppx: Hep SQ GI Px: IV protonix
[2016-11-30] MEDS ORDERED: PT OWN MED DRAWER 7, Y5N ONE (00:39)
[2016-11-30] MEDS: AMPICILLIN NA/SULBACTAM NA 3 GM in SODIUM CHLORIDE 100 ML IVPB SCH ×3 (01:11→17:19)
[2016-11-30] MEDS: HEPARIN NA (PORCINE) 5,000 UNITS/ML 1ML VIAL SQ SCH ×3 (05:40→22:18)
[2016-11-30] MEDS: INSULIN SLIDING SCALE (NOVOLOG) 1 VIAL SQ SCH ×3 (05:40→17:02)
--- NOTE | 2016-11-30 08:26 | PN ---
Progress Note (short form) - Note Progress Note: POD #7 Alert (baseline). Resting comfortably. Started on puree diet yesterday and tolerated. Last Vital Signs Temp Pulse Resp BP Pulse Ox 100.6 F H 111 H 20 153/77 99 11/30/16 06:00 11/30/16 06:00 11/30/16 06:00 11/30/16 06:00 11/29/16 22:00 Gen: nad ABD: midline incision open, deep fascia intact. clean/pink. LLQ ostomy viable ( pink/protruding/producing) Problem List - Problems (1) Intestinal perforation Assessment/Plan: POD #7 s/p exlap with chandler's procedure Advance diet as tolerated Dressing changed on rounds Place Karaya paste around ostomy wafer (medial aspect) as to prevent stool seepage into wound DVT ppx f/u CBC and BMP --> make sure hypokalemia resolved Code(s): K63.1 - PERFORATION OF INTESTINE (NONTRAUMATIC)
[2016-11-30 08:53] LABS: BASOPHIL 0.2 % (0-2.0); EOSINOPHIL 1.4 % (0-4.5); MCH 21.8 pg (25.7-33.7); MCHC 31.3 g/dl (32.0-36.0); MEAN CELL VOLUME 69.7 fl (80-96); MEAN PLT VOLUME 7.7 fl (7.5-11.1); NEUTROPHILS 77.2 % (42.8-82.8); PLATELET COUNT 423 K/MM3 (134-434); RDW 15.3 % (11.6-15.6); WHITE BLOOD COUNT 12.7 K/mm3 (4.0-10.0)
[2016-11-30] MEDS ORDERED: PANTOPRAZOLE SODIUM 40 MG VIAL ONE (10:03)
[2016-11-30] MEDS ORDERED: SODIUM CHLORIDE 100 ML IVPB ONE (10:03)
[2016-11-30] MEDS: VANCOMYCIN 1,250 MG in DEXTROSE 5%-WATER - 250 ML IVPB SCH (10:19)
[2016-11-30 10:37] LABS: ANION GAP 9 (8-16); CALCIUM 7.9 mg/dL (8.5-10.1); CO2 32 mmol/L (21-32); CREATININE 0.5 mg/dL (0.55-1.02); GLUCOSE,RANDOM 125 mg/dL (74-106); MAGNESIUM 2.3 mg/dL (1.8-2.4); PHOSPHOROUS 2.9 mg/dL (2.5-4.9)
[2016-11-30] MEDS: PANTOPRAZOLE SODIUM 40 MG in SODIUM CHLORIDE 100 ML IVPB SCH (10:43)
[2016-11-30 12:21] LABS: ANISOCYTOSIS 2+; HYPOCHROMIA 2+; MICROCYTOSIS 1+
--- NOTE | 2016-11-30 12:46 | PN ---
Progress Note (short form) - Note Progress Note: post op day #7 doing well ate breakfast Vital Signs Period Temp Pulse Resp BP Sys/Campbell Pulse Ox Last 24 Hr 97.1 F-100.6 F 103-111 16-20 122-156/57-98 99-99 cor-rrr lungs decreased bs at bases abd soft, +ostomy function, wound clean and packed per surgery note ext no edema CBC, BMP 11/30/16 06:30 11/30/16 06:00 Laboratory Tests 11/29/16 22:00 Vancomycin Pre-Dose 24.934 H* Microbiology 11/28/16 09:00 Urine - Urine Pritchett Urine Culture - Final NO GROWTH OBTAINED 11/23/16 16:30 Blood - Peripheral Venous Blood Culture - Final NO GROWTH AFTER 5 DAYS INCUBATION 11/23/16 16:10 Blood - Peripheral Venous Blood Culture - Final NO GROWTH AFTER 5 DAYS INCUBATION 11/24/16 01:00 Peritoneal Fluid Gram Stain - Final 11/24/16 01:00 Peritoneal Fluid Body Fluid Culture - Final Escherichia Coli Enterococcus Faecium 11/24/16 01:00 Peritoneal Fluid Anaerobic Culture - Final NO ANAEROBES WERE ISOLATED a/p s/p perforated sigmoid diverticulitis post op day #7 encourage OOB, encourage incentive spirometry continue unasyn vanco d/c due to high trough, repeat level ordered-will resume at 1250 Q24h if level less then 15 if low grade fevers and leukocytosis persist, consider ct scan abd/pelvis to look for intra-abdominal collections
[2016-11-30] MEDS ORDERED: POTASSIUM CHLORIDE ORAL LIQUID 20 MEQ/15 ML PO ONE (13:30)
--- NOTE | 2016-11-30 18:51 | PN ---
Physical Exam: SUBJECTIVE: Patient seen and examined. Patient is at baseline mental state, tolerating pureed feeds (mcc feeds ) well. Had a Tmax 100.6 this am. OBJECTIVE: Selected Entries 11/30/16 11/30/16 11/30/16 06:00 08:00 15:12 Temperature 100.6 F H 99.5 F 98.4 F Pulse Rate 103 H 91 H Vital Signs Period Temp Pulse Resp BP Sys/Campbell Pulse Ox Last 24 Hr 98.4 F-100.6 F 91-111 16-20 113-156/77-98 99-99 GENERAL: The patient is awake, alert, in no acute distress. ENT: Moist mucous membranes. NECK: supple. LUNGS: Breath sounds equal, clear to auscultation bilaterally, no wheezes, no crackles, no accessory muscle use. HEART: Regular rate and rhythm, S1, S2 without murmur, rub or gallop. ABDOMEN: Substernal dressing in place, claean and dry to supra pubic region. L ostomy bag functioning with semi-well formed stool Soft, nondistended, normoactive bowel sounds, no guarding, no rebound, no hepatosplenomegaly, no masses. EXTREMITIES: 2+ pulses, warm, well-perfused, no edema. NEUROLOGICAL: Averbal, gait not observed. Microbiology 11/24/16 01:00 Peritoneal Fluid Gram Stain - Final 11/24/16 01:00 Peritoneal Fluid Anaerobic Culture - Final Escherichia Coli Enterococcus Faecium NO ANAEROBES WERE ISOLATED Laboratory Results - last 24 hr 11/29/16 11/29/16 11/30/16 21:09 22:00 05:35 WBC RBC Hgb Hct MCV MCH MCHC RDW Plt Count MPV Neutrophils % Lymphocytes % Monocytes % Eosinophils % Basophils % Hypochromia Anisocytosis Microcytosis Sodium Potassium Chloride Carbon Dioxide Anion Gap BUN Creatinine POC Glucometer 125 136 Random Glucose Calcium Phosphorus Magnesium Random Vancomycin Vancomycin Pre-Dose 24.934 H* 11/30/16 11/30/16 11/30/16 06:00 06:30 10:50 WBC 12.7 H RBC 4.39 Hgb 9.6 L Hct 30.6 L MCV 69.7 L MCH 21.8 L MCHC 31.3 L RDW 15.3 Plt Count 423 D MPV 7.7 Neutrophils % 77.2 Lymphocytes % 13.7 Monocytes % 7.5 Eosinophils % 1.4 Basophils % 0.2 Hypochromia 2+ Anisocytosis 2+ Microcytosis 1+ Sodium 146 H Potassium 3.3 L Chloride 105 Carbon Dioxide 32 Anion Gap 9 BUN 2 L* D Creatinine 0.5 L POC Glucometer 136 Random Glucose 125 H Calcium 7.9 L Phosphorus 2.9 D Magnesium 2.3 Random Vancomycin Vancomycin Pre-Dose 11/30/16 12:40 WBC RBC Hgb Hct MCV MCH MCHC RDW Plt Count MPV Neutrophils % Lymphocytes % Monocytes % Eosinophils % Basophils % Hypochromia Anisocytosis Microcytosis Sodium Potassium Chloride Carbon Dioxide Anion Gap BUN Creatinine POC Glucometer Random Glucose Calcium Phosphorus Magnesium Random Vancomycin 8.710 Vancomycin Pre-Dose Active Medications Generic Name Dose Route Start Last Admin Trade Name Freq PRN Reason Stop Dose Admin Heparin Sodium (Porcine) 5,000 unit 11/28/16 22:00 11/30/16 14:00 Heparin - SQ 5,000 unit TID CELENA Administration Hydromorphone HCl 1 mg 11/28/16 16:32 Dilaudid Injection - IVPUSH Q4H PRN PAIN Pantoprazole Sodium 40 mg/ 100 mls @ 200 mls/hr 11/29/16 10:15 11/30/16 10:43 Sodium Chloride IVPB 200 mls/hr DAILY CELENA Administration Ampicillin Sodium/Sulbactam 100 mls @ 200 mls/hr 11/29/16 18:00 11/30/16 17:19 Sodium 3 gm/ Sodium Chloride IVPB 200 mls/hr Q8H-IV CELENA Administration Vancomycin HCl 1,250 mg/ 250 mls @ 166.667 mls/hr 11/30/16 22:00 Dextrose IVPB [facility] Insulin Aspart 1 vial 11/28/16 16:45 11/30/16 17:02 Novolog Vial Sliding Scale - SQ Not Given Q6H [facility] Protocol Ondansetron HCl 4 mg 11/28/16 16:32 Zofran Injection IVPB Q6H PRN NAUSEA Potassium Chloride 40 meq 11/30/16 22:00 K-Dur - PO BID [facility] ASSESSMENT/PLAN: #Perforated bowel: POD7 s/p Monse's procedure tolerating pureed feeds iv antibiotics- vancomycin- held per ID for high vanco levels and unasyn continued Dilaudid 1mg iv push for pain -Postop wound mx per surgeons - Peritoneal fluid culture as documented - continue unasyn Intermittent fevers - CXR -UA -R hip Xray #Tachycardia Monitor AK -R/O pain -R hip Xray #Dry eyes: Latanoprost eye drops #Hypokalemia KCl 40meq PO bid #DM- Hyperglycemic, NPO Insulin aspart (novolog)- sliding scale iv subQ Q6H #dementia Still holding PO meds #hyperlipidemia intubated holding PO meds #hypercholesterolemia; Still holding PO meds #HTN-Blood pressure controlled Amlodipine Still holding PO meds #FEN: Oral fluids CMP, Mg, P, Ca Puree diet- nuring home feeds #Prophylaxis DVT: SubQ heparin GI: IV protonix #Dispo: Patient is a DNI/DNR- updated Problem List - Problems (1) Intestinal perforation Code(s): K63.1 - PERFORATION OF INTESTINE (NONTRAUMATIC) (2) Peritonitis Code(s): K65.9 - PERITONITIS, UNSPECIFIED (3) Diabetes Code(s): E11.9 - TYPE 2 DIABETES MELLITUS WITHOUT COMPLICATIONS Qualifiers: Diabetes mellitus type: type 2 Visit type - Emergency Visit Emergency Visit: Yes ED Registration Date: 11/23/16 Care time: The patient presented to the Emergency Department on the above date and was hospitalized for further evaluation of their emergent condition. - New Patient This patient is new to me today: No - Critical Care Critical Care patient: No - Discharge Referral Referred to [facility] No
--- NOTE | 2016-11-30 19:12 | PN ---
Teaching Attending Note Name of Resident: Minna Navas ATTENDING PHYSICIAN STATEMENT I saw and evaluated the patient. I reviewed the resident's note and discussed the case with the resident. I agree with the resident's findings and plan as documented. SUBJECTIVE: Unable to obtain hx . per son looks comfortable at base line non verbal state OBJECTIVE: NAD , arousable, minimal verbal response for son dry MM. LUngs: decreased breath sounds b/l bases Abd : soft, NT, ND , mid line surgical scar with terry and packings . LLQ ostomy bag Ext : no edema . pain in R hip when moving RLE. TTP in R groin . ASSESSMENT AND PLAN: 71 y/o lady with h/o dementia , HTN, HLP, And DM who presented with abd pain and was found tohave perforated viscus . 1- Perforated viscus, s/p Crouch procedure. cx with Enterococcus faecium and E coli low grade fever x 3 days. repeat cxray today with no evidence of infiltrate - Repeat UA - Cont Abx ( vanco and unasyn ) - Agree with CT abd , to evaluate for abscess, or leakage if fever persists - cont puree diet - start low dose IVF due to dehydration - replete elcetrolytes - path , no malignancy 2- dehydration with hypernatremia : start IVF cont oral hydration 3- R hip pain on exam. h/o fall at NH . - xray Hip with no fx . - due to high suspicion for hip fx , will get CT . 4- DM . change SSI to AC Dispo : HLOC
[2016-11-30] MEDS ORDERED: SODIUM CHLORIDE 1,000 ML IV SCH (19:15)
[2016-11-30] MEDS ORDERED: VANCOMYCIN 1,250 MG in DEXTROSE 5%-WATER - 250 ML IVPB SCH (22:00)
[2016-11-30] MEDS: POTASSIUM CHLORIDE TABS 20 MEQ TABLET.ER (FP) PO SCH (22:18)
[2016-11-30] MEDS ORDERED: HEPARIN NA (PORCINE) 5,000 UNITS/ML 1ML VIAL IVPUSH PRN ×2 (23:33)
[2016-11-30] MEDS ORDERED: HEPARIN - 25,000 UNIT in SODIUM CHLORIDE 495 ML IV SCH (23:45)
--- NOTE | 2016-11-30 23:54 | HOSP ---
Physical Examination Vital Signs: Vital Signs Temperature 99.3 F 11/30/16 17:01 Pulse Rate 108 H 11/30/16 17:01 Respiratory Rate 18 11/30/16 17:01 Blood Pressure 150/89 11/30/16 17:01 O2 Sat by Pulse Oximetry (%) 99 11/30/16 10:00 Labs: CBC, BMP 11/30/16 06:30 11/30/16 06:00 Hospitalist Encounter Assessment: Got a call from radiologist @ 11:43pm and mentioned that Abdomen/Pelvis CT scan was just read and found right sided Pulmonary embolism and right lower extremity DVT. Informed Dr. Bill. Went to examine the patient. She was comfortably sleeping. Patient is non verbal at baseline. Physical Examination: Vitals: BP- 143/72 mmHg, HR-102 bpm, Temp- 98F; Spo2- 99 @ 2L and RR- 18. General: Patient is comfortably sleeping, arousable, non verbal at baseline, in no acute distress. Lungs: B/L lungs clear, no added sounds. CVS: Tachycardia, S1, S2 heard, soft systolic murmur. Abdomen: Colostomy bag in place, dry and clean surrounding, Soft, non tender. Extremities: No calf tenderness; no peripheral edema, b/l strong pulses ++. Tenderness in the right hip, pain on movement of the right hip. A/P Patient is a 71 year old Female from [facility] with significant PMHx of HTN, DM, dementia, hyperlipidemia, and hypercholesterolemia, who presented to the ER for free air under the diaphragm that was seen on outpatient xray admitted for perforated viscus s/p 6th POD after hartmans procedure. Right sided Pulmonary embolism and Right femoral vein DVT. Abdomen/Pelvis CT with IV contrast was done today to r/o abscess but was found to have VTE Report: Pulmonary embolism in the right lower lobe, Right leg DVT- partially imaged right femoral vein. Small bilateral pleural effusions with associated mild bibasilar compressive atelectasis. Heparin protocol started, check PTT (60-80secs). Monitor H/H, repeat CBC in am Case discussed with Dr. Bill. Visit type - Emergency Visit Emergency Visit: Yes ED Registration Date: 11/23/16 Care time: The patient presented to the Emergency Department on the above date and was hospitalized for further evaluation of their emergent condition. - New Patient This patient is new to me today: Yes Date on this admission: 12/01/16 - Critical Care Critical Care patient: No
[2016-12-01] MEDS ORDERED: PT OWN MED DRAWER 7, Y5N ONE ×3 (00:12→20:57)
[2016-12-01] MEDS: AMPICILLIN NA/SULBACTAM NA 3 GM in SODIUM CHLORIDE 100 ML IVPB SCH ×2 (00:59→10:24)
[2016-12-01] MEDS: INSULIN SLIDING SCALE (NOVOLOG) 1 VIAL SQ SCH ×3 (06:22→16:44)
[2016-12-01 07:41] LABS: BASOPHIL 0.6 % (0-2.0); EOSINOPHIL 1.8 % (0-4.5); MCH 22.2 pg (25.7-33.7); MCHC 31.6 g/dl (32.0-36.0); MEAN CELL VOLUME 70.2 fl (80-96); MEAN PLT VOLUME 8.1 fl (7.5-11.1); NEUTROPHILS 70.5 % (42.8-82.8); PLATELET COUNT 453 K/MM3 (134-434); RDW 15.4 % (11.6-15.6); WHITE BLOOD COUNT 10.7 K/mm3 (4.0-10.0)
--- NOTE | 2016-12-01 08:29 | PN ---
Physical Exam: SUBJECTIVE: Patient seen and examined Sleeping this am. Patient was found to have tenderness of R hip yesterday. R hip Xray did not show evidence of fracture but with high suspicion for hip pathology CT was ordered which showed: Right sided Pulmonary embolism and Right femoral vein DVT. Abdomen/Pelvis CT with IV contrast was done today to r/o abscess but was found to have VTE Report: Pulmonary embolism in the right lower lobe, Right leg DVT- partially imaged right femoral vein. Small bilateral pleural effusions with associated mild bibasilar compressive atelectasis. OBJECTIVE: Vital Signs Period Temp Pulse Resp BP Sys/Campbell Pulse Ox Last 24 Hr 98.4 F-99.3 F 91-108 16-21 113-150/70-89 99-99 GENERAL: The patient is awake, alert, and fully oriented, in no acute distress. HEAD: Normal with no signs of trauma. EYES: PERRL, extraocular movements intact, sclera anicteric, conjunctiva clear. No ptosis. ENT: Ears normal, nares patent, oropharynx clear without exudates, moist mucous membranes. NECK: Trachea midline, full range of motion, supple. LUNGS: Breath sounds equal, clear to auscultation bilaterally, no wheezes, no crackles, no accessory muscle use. HEART: Regular rate and rhythm, S1, S2 without murmur, rub or gallop. ABDOMEN: Soft, nontender, nondistended, normoactive bowel sounds, no guarding, no rebound, no hepatosplenomegaly, no masses. EXTREMITIES: 2+ pulses, warm, well-perfused, no edema. NEUROLOGICAL: Cranial nerves II through XII grossly intact. Normal speech, gait not observed. PSYCH: Normal mood, normal affect. SKIN: Warm, dry, normal turgor, no rashes or lesions noted Laboratory Results - last 24 hr 11/30/16 11/30/16 11/30/16 06:00 06:30 10:50 WBC 12.7 H RBC 4.39 Hgb 9.6 L Hct 30.6 L MCV 69.7 L MCH 21.8 L MCHC 31.3 L RDW 15.3 Plt Count 423 D MPV 7.7 Neutrophils % 77.2 Lymphocytes % 13.7 Monocytes % 7.5 Eosinophils % 1.4 Basophils % 0.2 Hypochromia 2+ Anisocytosis 2+ Microcytosis 1+ Sodium 146 H Potassium 3.3 L Chloride 105 Carbon Dioxide 32 Anion Gap 9 BUN 2 L* D Creatinine 0.5 L POC Glucometer 136 Random Glucose 125 H Calcium 7.9 L Phosphorus 2.9 D Magnesium 2.3 Random Vancomycin 11/30/16 12/01/16 12:40 06:00 WBC 10.7 H RBC 4.08 Hgb 9.1 L Hct 28.7 L MCV 70.2 L MCH 22.2 L MCHC 31.6 L RDW 15.4 Plt Count 453 H MPV 8.1 Neutrophils % 70.5 Lymphocytes % 18.1 D Monocytes % 9.0 Eosinophils % 1.8 Basophils % 0.6 Hypochromia Anisocytosis Microcytosis Sodium Potassium Chloride Carbon Dioxide Anion Gap BUN Creatinine POC Glucometer Random Glucose Calcium Phosphorus Magnesium Random Vancomycin 8.710 Active Medications Generic Name Dose Route Start Last Admin Trade Name Freq PRN Reason Stop Dose Admin Heparin Sodium (Porcine) 1,000 unit 11/30/16 23:33 Heparin - IVPUSH PRN PRN Heparin Heparin Sodium (Porcine) 5,000 unit 11/30/16 23:33 12/01/16 00:33 Heparin - IVPUSH 5,000 unit PRN PRN Administration Heparin Hydromorphone HCl 1 mg 11/28/16 16:32 Dilaudid Injection - IVPUSH Q4H PRN PAIN Pantoprazole Sodium 40 mg/ 100 mls @ 200 mls/hr 11/29/16 10:15 11/30/16 10:43 Sodium Chloride IVPB 200 mls/hr DAILY CELENA Administration Ampicillin Sodium/Sulbactam 100 mls @ 200 mls/hr 11/29/16 18:00 12/01/16 00:59 Sodium 3 gm/ Sodium Chloride IVPB 200 mls/hr Q8H-IV CELENA Administration Vancomycin HCl 1,250 mg/ 250 mls @ 166.667 mls/hr 11/30/16 22:00 11/30/16 22:18 Dextrose IVPB 166.667 mls/hr HS CELENA Administration Heparin Sodium (Porcine) 25, 500 mls @ 20 mls/hr 11/30/16 23:45 12/01/16 00:32 000 unit/ Sodium Chloride IV 20 mls/hr TITR CELENA Administration Protocol 1,000 UNIT/HR Insulin Aspart 1 vial 12/01/16 07:00 12/01/16 06:22 Novolog Vial Sliding Scale - SQ Not Given [facility] Protocol Ondansetron HCl 4 mg 11/28/16 16:32 Zofran Injection IVPB Q6H PRN NAUSEA Potassium Chloride 40 meq 11/30/16 22:00 11/30/16 22:18 K-Dur - PO 40 meq BID CELENA Administration ASSESSMENT/PLAN: 71 y/o lady with h/o dementia , HTN, HLP, And DM who presented with abd pain and was found to have perforated viscus. S/P Zheng procedure. #Right sided Pulmonary embolism and Right femoral vein DVT. Abdomen/Pelvis CT with IV contrast was done to r/o abscess but was found to have VTE Report: Pulmonary embolism in the right lower lobe, Right leg DVT- partially imaged right femoral vein. Small bilateral pleural effusions with associated mild bibasilar compressive atelectasis. Heparin protocol started- currently on Heparin 1000@ 20/hr check PTT (60-80secs). Monitor H/H, repeat CBC in am xarelto 15 mg PO bid to start at 10.00pm and stop Heparin drip at 10.00pm #Hypokalemia KCl 40meq PO bid, then iv KCL 10meq x3 every 6 hrs - Please hold night KCL based on K level #Perforated viscus, s/p Zheng procedure. cx with Enterococcus faecium and E coli - Repeat UA- awaiting sample collection - Cont Abx ( vanco and unasyn ) #R hip pain - CT abd - showed PE and R leg DVT as documented above - start low dose IVF due to dehydration #DM . change SSI to AC #dementia Still holding PO meds #hyperlipidemia intubated holding PO meds #hypercholesterolemia; Still holding PO meds #HTN-Blood pressure controlled Amlodipine Still holding PO meds FEN: -1/2 Nsaline @ - 42mls/hr _K correction as documented - cont puree diet Problem List - Problems (1) Intestinal perforation Code(s): K63.1 - PERFORATION OF INTESTINE (NONTRAUMATIC) (2) Peritonitis Code(s): K65.9 - PERITONITIS, UNSPECIFIED (3) Diabetes Code(s): E11.9 - TYPE 2 DIABETES MELLITUS WITHOUT COMPLICATIONS Qualifiers: Diabetes mellitus type: type 2 Visit type - Emergency Visit Emergency Visit: Yes ED Registration Date: 11/23/16 Care time: The patient presented to the Emergency Department on the above date and was hospitalized for further evaluation of their emergent condition. - New Patient This patient is new to me today: No - Critical Care Critical Care patient: No - Discharge Referral Referred to [facility] No
[2016-12-01 08:30] LABS: ANION GAP 7 (8-16); CO2 35 mmol/L (21-32); CREATININE 0.5 mg/dL (0.55-1.02); GLUCOSE,RANDOM 110 mg/dL (74-106); MAGNESIUM 2.4 mg/dL (1.8-2.4); PHOSPHOROUS 2.5 mg/dL (2.5-4.9)
[2016-12-01] MEDS ORDERED: PANTOPRAZOLE SODIUM 40 MG VIAL ONE (10:17)
[2016-12-01] MEDS ORDERED: SODIUM CHLORIDE 100 ML IVPB ONE (10:18)
[2016-12-01] MEDS: PANTOPRAZOLE SODIUM 40 MG in SODIUM CHLORIDE 100 ML IVPB SCH (10:22)
[2016-12-01] MEDS: POTASSIUM CHLORIDE TABS 20 MEQ TABLET.ER (FP) PO SCH (10:22)
--- NOTE | 2016-12-01 10:35 | PN ---
Progress Note (short form) - Note Progress Note: Attending Surgeon POD#8 No c/o; reportedly tolerating puree/soft diet VSS AF abdomen-soft; wound c/d/i and granulating; ostomy viable and functioning WBC 10.7 IMP: doing well PLAN: Wound care; d/c planning and as per primary care team and ID w/r/t the antibiotics. Harvinder Suazo MD FACS
--- NOTE | 2016-12-01 10:47 | PN ---
Progress Note (short form) - Note Progress Note: ID Erik and Pavithran Selected Entries 12/01/16 06:00 Temperature 99.1 F Pulse Rate 102 H Respiratory 20 Rate Blood Pressure 147/70 Abd Soft ostomy Laboratory Tests 12/01/16 12/01/16 06:00 06:00 WBC 10.7 H Hgb 9.1 L Hct 28.7 L Plt Count 453 H BUN 4 L D Creatinine 0.5 L Assessment Perf viscus/ Peritonitis( E Coli enterococcus) Plan Will stop antibiotics Discharge planning David Problem List - Problems (1) Intestinal perforation Code(s): K63.1 - PERFORATION OF INTESTINE (NONTRAUMATIC) (2) Peritonitis Code(s): K65.9 - PERITONITIS, UNSPECIFIED
[2016-12-01] MEDS ORDERED: POTASSIUM CHLORIDE TABS 20 MEQ TABLET.ER (FP) PO SCH (12:15)
[2016-12-01] MEDS: KCL 10 MEQ IVPB 100 ML IVPB SCH ×3 (13:36→15:59)
[2016-12-01] MEDS: SODIUM CHLORIDE 0.45% 1,000 ML IV SCH (13:36)
--- NOTE | 2016-12-01 16:24 | PN ---
Teaching Attending Note Name of Resident: Minna Navas ATTENDING PHYSICIAN STATEMENT I saw and evaluated the patient. I reviewed the resident's note and discussed the case with the resident. I agree with the resident's findings and plan as documented. SUBJECTIVE: unable to obtain hx OBJECTIVE: NAD , arousable LUngs: decreased breath sounds b/l bases Abd : soft, NT, ND , mid line surgical scar with terry and packings . LLQ colostomy bag with brown stool Ext : no edema . tenderness in R thigh . no erythema ASSESSMENT AND PLAN: 71 y/o lady with h/o dementia , HTN, HLP, And DM who presented with abd pain and was found tohave perforated viscus . 1- Perforated viscus, s/p Crouch procedure. cx with Enterococcus faecium and E coli low grade fever x 3 days.could be explained by DVT . Urine cx on 4th with no growth - off Abx - cont puree diet - resume IVF - path , no malignancy - appreciate Surgical input on wound packing and dressing change after dc - small bowel loop thickening on CT is non specific. urine cx withno growth , no concern for pyelo 2- R DVT and R PE: - echo with no R heart strain - heparin was started last night . start xarelto 15 BID x 21 days then 20 daily . stop heaprin gtt this evening - explained risk of bleeding to daughter at bed side. - no need to perform full CTA of chest due to risk of renal injury and that will not gear changer in setting of no R heart strain 3- Dehydration with hypernatremia : resume IVF . 1/2 NS cont oral hydration 4- DM . SSI 5- R ovarian cyst, need f/u in 3 month Dispo : [facility]LOC . possible dc tomorrow
[2016-12-01] MEDS: RIVAROXABAN 15 MG TABLET PO SCH (21:15)
[2016-12-02] MEDS: INSULIN SLIDING SCALE (NOVOLOG) 1 VIAL SQ SCH ×3 (07:00→17:36)
[2016-12-02 08:04] LABS: BASOPHIL 0.5 % (0-2.0); EOSINOPHIL 2.4 % (0-4.5); MCH 22.5 pg (25.7-33.7); MCHC 31.8 g/dl (32.0-36.0); MEAN CELL VOLUME 70.9 fl (80-96); MEAN PLT VOLUME 8.2 fl (7.5-11.1); NEUTROPHILS 70.6 % (42.8-82.8); PLATELET COUNT 520 K/MM3 (134-434); RDW 15.8 % (11.6-15.6); WHITE BLOOD COUNT 10.5 K/mm3 (4.0-10.0)
[2016-12-02 08:32] LABS: ANION GAP 11 (8-16); CALCIUM 8.3 mg/dL (8.5-10.1); CO2 27 mmol/L (21-32); CREATININE 0.5 mg/dL (0.55-1.02); GLUCOSE,RANDOM 99 mg/dL (74-106)
[2016-12-02 08:34] LABS: INR 1.55 (0.82-1.09); PROTHROMBIN TIME (PATIENT) 17.2 SEC (9.98-11.88)
--- NOTE | 2016-12-02 08:52 | PN ---
Progress Note (short form) - Note Progress Note: POD #9 Alert. Resting in position of comfort. Tolerating puree diet. Colosotomy functioning. Hasn't been oob and ambulated. According to pt's RN, [facility] (this [facility] her baseline). Last Vital Signs Temp Pulse Resp BP Pulse Ox 98.4 F 84 20 142/80 98 12/02/16 06:00 12/02/16 06:00 12/02/16 06:00 12/02/16 06:00 12/01/16 21:00 CBC, BMP 12/02/ 06:00 General: nad Abd: midline incision open with few terry (umbilical) intact. Deep fascia intact. Tissue is pink/clean. LLQ ostomy is viable (pink/protruding/producing). Problem List - Problems (1) Intestinal perforation Assessment/Plan: POD #9 s/p Monse's Procedure Advance diet as tolerated. Dressing changed on rounds. Cont floor management DC planning back [facility] Code(s): K63.1 - PERFORATION OF INTESTINE (NONTRAUMATIC)
[2016-12-02] MEDS ORDERED: PANTOPRAZOLE SODIUM 40 MG VIAL ONE (10:41)
[2016-12-02] MEDS ORDERED: SODIUM CHLORIDE 100 ML IVPB ONE (10:41)
[2016-12-02] MEDS: PANTOPRAZOLE SODIUM 40 MG in SODIUM CHLORIDE 100 ML IVPB SCH (10:45)
[2016-12-02] MEDS: RIVAROXABAN 15 MG TABLET PO SCH (10:45)
--- NOTE | 2016-12-02 15:41 | DS ---
Physical Exam: SUBJECTIVE: Patient seen and examined. No new complaints this morning. OBJECTIVE: Vital Signs Period Temp Pulse Resp BP Sys/Campbell Pulse Ox Last 24 Hr 98.0 F-99.9 F 84-103 16-20 116-154/72-93 96-100 PHYSICAL EXAM GENERAL: The patient is awake, in no acute distress. EYES: PERRL, extraocular movements intact, sclera anicteric, conjunctiva clear. ENT: Moist mucous membranes. LUNGS: Breath sounds decreased to auscultation at lung bases bilaterally HEART: Regular rate and rhythm, S1, S2, with systolic murmur, no rub or gallop. ABDOMEN: Soft, nondistended. Removed midline dressing shows terry in between packed abdominal surgical wound about 3cm above and below staple, clean. Normoactive bowel sounds. EXTREMITIES: 2+ pulses, warm, well-perfused, no edema. NEUROLOGICAL: Averbal at baseline, gait not observed. LABS Laboratory Results - last 24 hr 12/01/16 12/01/16 12/01/16 16:42 17:00 21:40 WBC RBC Hgb Hct MCV MCH MCHC RDW Plt Count MPV Neutrophils % Lymphocytes % Monocytes % Eosinophils % Basophils % INR PTT (Actin FS) Sodium Potassium 4.6 D 3.9 Chloride Carbon Dioxide Anion Gap BUN Creatinine POC Glucometer 119 Random Glucose Calcium 12/02/16 12/02/16 12/02/16 05:44 06:00 06:00 WBC 10.5 H RBC 4.30 Hgb 9.7 L Hct 30.5 L MCV 70.9 L MCH 22.5 L MCHC 31.8 L RDW 15.8 H Plt Count 520 H MPV 8.2 Neutrophils % 70.6 Lymphocytes % 18.6 Monocytes % 7.9 Eosinophils % 2.4 Basophils % 0.5 INR 1.55 H PTT (Actin FS) Sodium Potassium Chloride Carbon Dioxide Anion Gap BUN Creatinine POC Glucometer 110 Random Glucose Calcium 12/02/16 12/02/16 12/02/16 06:00 06:00 12:02 WBC RBC Hgb Hct MCV MCH MCHC RDW Plt Count MPV Neutrophils % Lymphocytes % Monocytes % Eosinophils % Basophils % INR PTT (Actin FS) 60.0 H Sodium 146 H Potassium 4.0 Chloride 108 H Carbon Dioxide 27 D Anion Gap 11 BUN 4 L Creatinine 0.5 L POC Glucometer 121 Random Glucose 99 Calcium 8.3 L HOSPITAL COURSE: 71 y/o lady with h/o dementia, hypertension, hyperlipidemia, and diabetes mellitus, who presented with abdominal pain and collapse and was found to have perforated viscus on plain abdominal Xray (that showed free air under the diaphragm) and she had an emergent Zheng procedure done. She had a left RIMMA drain in place, a right colostomy, with bag, midline laparotomy surgical wound and a nasogastric tube placed. Post surgery, she remained intubated and was admitted to the ICU. She was extubated after a day, and was sating well with an intranasal cannular. She remained NPO, on intravenous fluids, albumin, and was placed on levofloxacin and metronidazole initially, and pain management with dilaudid. She was also placed on DVT prophylaxis with heparin and ondasetron for nausea and vomiting. Her electrolytes were monitored and repleted as needed, and her diabetes managed with subcutaneous insulin. She continued on Zosyn and diflucan after the second day, with negative blood cultures, while awaiting peritoneal fluid culture. She pulled out the nasogastric tube on the second day, and it was determined that since drainage was minimal, there was no need for re-insertion. Based on Cultures reviewed on 11/28/16 E Coli and Enterococcus faecium, latter resistant to PCN was grown and Vancomycin was added for additional gram positive coverage, until antibiotics were stopped on 12/01/16. On 11/30/16, patient was found to have R hip tenderness and was evaluated by both R hip Xray and CT scan and found to have Right sided Pulmonary embolism and Right femoral vein DVT. She was treated with intravenous heparin and is being discharged on Xarelto- 15mg bid for the first 21 days, then 20mg bid after that. She may resume all her home medications. She is being discharged to a care home facility, currently and has a right colostomy, with bag, and midline healing surgical wounds that will require wet and dry dressing. She needs to follow up with her surgeon, and with her her primary care doctor. She will also need a gynecological evaluation for a R ovarian cyst in 3 months. Date of Admission:11/23/16 Date of Discharge: 12/02/16 Minutes to complete discharge: 45 Discharge Summary Reason For Visit: PERFORATION OF INTESTINE Current Active Problems DVT (deep venous thrombosis) (Acute) DVT prophylaxis (Acute) Diabetes type 2, controlled (Acute) Intestinal perforation (Acute) Peritonitis (Acute) Pulmonary embolism (Acute) Dementia (Chronic) Diabetes (Chronic) Hyperlipemia (Chronic) Condition: Improved - Instructions Diet, Activity, Other Instructions: You came in after collapsing from perforation of your intestines and collection of fluid in your abdomen. You had an emergency surgery to take out the fluid and repair the intestines through a Zheng procedure. You also had a colostomy put in to collect stool and aid the healing. The wound in the abdomen will need to be dressed as follows: -Dressing changes will be wet to dry gauze dressing changes twice a day You also received antibiotics and had electrolyte replacements as needed. During the course of this admission, you were found to have a pulmonary embolism and deep vein thrombosis and you were treated with heparin. You were started on xarelto yesterday and will be on Xarelto 15mg bid for 21 days then continue with Xarelto 20mg bid after the first 21 days Please resume all your home medications and the new one (Xarelto) as prescribed. You will need to follow up with your surgeon in a week's time You should also follow up with your primary care doctor You will need to follow up with a green ware caster for R ovarian cyst evaluation that was found during this admission. If you think you are not getting better, or your symptoms worsen please go to your primary care doctor or the nearest emergency room. - Referrals: Harvinder Suazo MD [Staff Physician] - 1 Week Fabio Currie [Primary Care Provider] - 2 Weeks Disposition: [facility] F[facility] - Home Medications Comprehensive Discharge Medication List: Ambulatory Orders Amlodipine Besylate [Norvasc -] 5 mg PO DAILY 01/12/12 Aripiprazole [Abilify -] 5 mg PO DAILY #0 tablet 12/27/12 Citalopram Hydrobromide [Celexa -] 20 mg PO DAILY #0 tablet 12/27/12 Donepezil HCl [Aricept -] 5 mg PO DAILY #0 tablet 12/27/12 Mag Hydrox/Al Hydrox/Simeth [Mylanta Oral Suspension -] 30 ml PO Q6H PRN #0 cup 12/27/12 Pantoprazole Sodium [Protonix -] 40 mg PO DAILY #0 tablet.ec 12/27/12 Docusate Sodium [Colace -] 100 mg PO BID PRN #20 capsule 12/02/16 Rivaroxaban [Xarelto -] 15 mg PO BID #42 tablet 12/02/16 Rivaroxaban [Xarelto -] 20 mg PO DAILY #30 tablet 12/02/16 Problem List - Problems (1) Intestinal perforation Code(s): K63.1 - PERFORATION OF INTESTINE (NONTRAUMATIC) (2) Peritonitis Code(s): K65.9 - PERITONITIS, UNSPECIFIED (3) Diabetes Code(s): E11.9 - TYPE 2 DIABETES MELLITUS WITHOUT COMPLICATIONS Qualifiers: Diabetes mellitus type: type 2 This patient is new to me today: No Emergency Visit: Yes ED Registration Date: 11/23/16 Care time: The patient presented to the Emergency Department on the above date and was hospitalized for further evaluation of their emergent condition. Critical Care patient: No - Discharge Referral Referred to [facility] No Physician Referral: Henrry Landeros MD ([facility])
--- NOTE | 2016-12-02 16:14 | PN ---
Teaching Attending Note Name of Resident: Minna Navas ATTENDING PHYSICIAN STATEMENT I saw and evaluated the patient. I reviewed the resident's note and discussed the case with the resident. I agree with the resident's findings and plan as documented. SUBJECTIVE: no events over night OBJECTIVE: NAD, arousable Lungs: decreased breath sounds b/l bases Abd : soft, NT, ND , mid line surgical scar with terry and packings . LLQ colostomy bag with brown stool Ext : no edema . tenderness in R thigh . no erythema ASSESSMENT AND PLAN: 71 y/o lady with h/o dementia , HTN, HLP, And DM who presented with abd pain and was found tohave perforated viscus . 1- Perforated viscus, s/p Crouch procedure. cx with Enterococcus faecium and E coli - off Abx - cont puree diet - path , no malignancy - f/u with surgery 2- R DVT and R PE: - echo with no R heart strain - xarelto 15 BID x 21 days then 20 daily . - durationof AC is probbly prolonged( indefinitely) due to being bed ridden 3- Dehydration with hypernatremia : oral hydration 4- DM . SSI 5- R ovarian cyst, need f/u in 3 month Dispo : DC to NH today
[2016-12-02 17:13] VITALS: BP 158/93; PULSE 97; TEMP 98.7
[2016-12-02] MEDS: SODIUM CHLORIDE 0.45% 1,000 ML IV SCH (17:35)
== END 2016-12-02 18:45 | DRG 329 ==
LOC: JER 15:06 → JERBED 17:53 → JICU 11-24 01:07 → J8W 11-28 20:25
PROVIDERS: ADMIT Internal Medicine; ATTEND Internal Medicine
PROC: 0D1N0Z4 Bypass Sigmoid Colon to Cutaneous, Open Approach (ICD-10-PCS; 2016-11-23)
PROC: 0DBN0ZZ Excision of Sigmoid Colon, Open Approach (ICD-10-PCS; principal; 2016-11-24)
DX: K57.20 Diverticulitis of large intestine with perforation and abscess without bleeding (principal); J95.821 Acute postprocedural respiratory failure; I26.99 Other pulmonary embolism without acute cor pulmonale; J98.11 Atelectasis; E87.0 Hyperosmolality and hypernatremia; J90 Pleural effusion, not elsewhere classified; I82.411 Acute embolism and thrombosis of right femoral vein; I10 Essential (primary) hypertension; E11.9 Type 2 diabetes mellitus without complications; E78.5 Hyperlipidemia, unspecified; R00.0 Tachycardia, unspecified; F03.90 Unspecified dementia, unspecified severity, without behavioral disturbance, psychotic disturbance, mood disturbance, and anxiety; E83.42 Hypomagnesemia; E83.39 Other disorders of phosphorus metabolism; K21.9 Gastro-esophageal reflux disease without esophagitis; Z79.4 Long term (current) use of insulin; E87.6 Hypokalemia; E86.0 Dehydration; M25.551 Pain in right hip; N83.291 Other ovarian cyst, right side
CPT/HCPCS: 36415; 36600; 71010-TC; 73502-TC-RT; 74020-TC; 74177-TC; 80048; 80053; 82803; 83605; 83735; 84100; 84132; 84443; 85025; 85610; 85730; 86850; 86900; 86901; 87040; 87070; 87075; 87086; 87186; 87205; 88307-TC; 93005; 93010; 93306-TC; 94002; 94760; 97116-GP; 97162-GP; 99284-25; G0480; J1644